=== PATIENT | female | born 1945 | race Caucasian/White ===

== ENCOUNTER 2017-02-05 18:30 | Emergency (ER) | payer MEDICARE, MEDICAID ==
[2017-02-05 19:00] VITALS: BP 102/56
[2017-02-05] MEDS ORDERED: Albuterol 0.083% 2.5 MG/3 ML Neb Soln NEB ONE (19:20)
[2017-02-05 19:30] LABS: CHLORIDE,CL 106 mmol/L (98-115); SODIUM,NA 140 mmol/L (136-145)
[2017-02-05] MEDS ORDERED: predniSONE 20 MG Tab ONE (19:54)
--- NOTE | 2017-02-05 20:09 | EDM.PDOC ---
ED HISTORY OF PRESENT ILLNESS - General Chief Complaint: Respiratory Problem Stated Complaint: PNEUMONIA?? Time Seen by Provider: 02/05/17 18:45 Source of Information: Reports: Patient, RN History Limitations: Reports: No limitations, Other (difficulty hearing) - History of Present Illness INITIAL COMMENTS - FREE TEXT/NARRATIVE: 72-year-old female presents to the ER with the complaints of a cough and the chest discomfort with her cough. She reports the episodes been going on for approximately 3 days. She was seen by an Gianna Brenner PAC yesterday for bronchitis and she was instructed to continue with her cough medication which was the Tessalon, and was started on Zithromax. She denies a shortness of breath or chest pain or radiation to her chest pain. She denies fever chills. She denies nausea vomiting or abdominal pain. Symptom Onset Date: 02/02/17 Timing/Duration: Reports: Day(s): Severity: mild Location, General: Reports: chest Quality: Reports: Ache Improves with: Reports: Medication Worsens with: Reports: None Associated Symptoms (General): Reports: cough. 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(s) (Zithromax, Tessalon cough medication) - Related Data Allergies/ADRs: Allergies Allergy/AdvReac Type Severity Reaction Status Date / Time atorvastatin calcium Allergy unknown Verified 02/05/17 19:37 [From Lipitor] iodine Allergy Rash Verified 02/05/17 19:37 lisinopril Allergy Cough Verified 02/05/17 19:37 strawberry [[place]] Allergy Hives Verified 02/05/17 19:37 fish Allergy Airway Uncoded 02/05/17 19:37 Tightness Home Meds: Home Meds ALPRAZolam [Xanax] 1 tab PO BEDTIME PRN 11/10/13 [History] Diltiazem HCl [Diltiazem 24Hr ER] 1 cap PO DAILY 11/10/13 [History] Escitalopram [Lexapro] 10 mg PO BEDTIME 11/10/13 [History] Esomeprazole [NexIUM] 1 cap PO BID 11/10/13 [History] Ferrous Sulfate 1 tab PO DAILY 11/10/13 [History] Hydrocodone/Acetaminophen [Lortab 10-500] 1 each PO QID PRN 11/10/13 [History] Simvastatin [Zocor] 20 mg PO BEDTIME 11/10/13 [History] Valsartan [Diovan] 80 mg PO DAILY 11/10/13 [History] metFORMIN [Glucophage] 1,000 mg PO BIDM 11/10/13 [History] rOPINIRole [Requip] 2 mg PO BEDTIME 11/10/13 [History] Multivitamin/Iron/Folic Acid [Multi-Day Plus Iron Tablet] 1 tab PO DAILY [History] Vit A/Vit C/Vit E/Zinc/Copper [Preservision] 1 tab PO BID 04/14/15 [History] Cyclobenzaprine [Flexeril] 10 mg PO BEDTIME 12/07/15 [History] Past Medical History HEENT History: Reports: Hard of hearing, Impaired vision Cardiovascular History: Reports: High cholesterol, Hypertension Gastrointestinal History: Reports: Other (see below) Other Gastrointestinal History: She had a gastric bypass surgery done in 1979 and is now having frequent vomiting that is being worked-up. She goes to [place] for further evaluation of this next week. Musculoskeletal History: Reports: Other (see below) Other Musculoskeletal History: bilat shoulder pain - Past Surgical History GI Surgical History: Reports: Bariatric procedure Social & Family History - Tobacco Use Smoking Status *Q: Former Smoker Years of Tobacco use: 20 Packs/Tins Daily: 1 Used Tobacco, but Quit: Yes Month Tobacco Last Used: March Second Hand Smoke Exposure: No - Caffeine Use Caffeine Use: Reports: Coffee - Alcohol Use Days Per Week of Alcohol Use: 0 - Recreational Drug Use Recreational Drug Use: No ED ROS GENERAL - Review of Systems Review Of Systems: ROS reveals no pertinent complaints other than HPI. ED EXAM, GENERAL - Physical Exam Exam: See Below Exam Limited By: No limitations General Appearance: alert, WD/WN, no apparent distress Eye Exam: bilateral eye: EOMI, PERRL Ears: normal external exam, normal canal, normal TMs, hearing loss Nose: normal inspection Throat/Mouth: Normal inspection, Normal oropharynx, Normal voice, No airway compromise Head: atraumatic, normocephalic Neck: normal inspection, supple, non-tender, full range of motion. No: lymphadenopathy (L), lymphadenopathy (R) Respiratory/Chest: no respiratory distress, lungs clear, normal breath sounds. No: crackles, rales, rhonchi Cardiovascular: normal peripheral pulses, regular rate, rhythm, no edema, no JVD , no murmur Peripheral Pulses: 2+: carotid (L), carotid (R) GI/Abdominal: soft, non tender Back Exam: normal inspection Extremities: normal inspection Neurological: alert, oriented Psychiatric: normal affect, normal mood Skin Exam: Warm, Dry, Intact, Normal color, No rash Lymphatic: no adenopathy Course - Vital Signs Last Recorded V/S: Last Vital Signs Temp 98.0 F 02/05/17 19:00 Pulse 78 02/05/17 19:00 Resp 20 02/05/17 19:00 BP 102/56 L 02/05/17 19:00 Pulse Ox 97 02/05/17 19:00 - Orders/Labs/Meds Orders: Active Orders 24 hr Category Date Time Status RT Aerosol Therapy [RC] ASDIRECTED Care 02/05/17 19:21 Ordered CXR [Chest 2V] [CR] Stat Exams 02/05/17 19:01 Ordered Labs: Laboratory Tests 02/05/17 02/05/17 Range/Units 19:01 19:01 WBC 6.6 (5.0-10.0) 10^3/uL RBC 3.75 L (3.80-5.50) 10^6/uL Hgb 9.4 L (12.0-16.0) g/dL Hct 29.4 L (37.0-47.0) % MCV 78.2 L (82.0-92.0) fL MCH 25.1 L (27.0-31.0) pg MCHC 32.1 (32.0-36.0) g/dL RDW 15.9 H (11.5-14.5) % Plt Count 334 H (150-300) 10^3/uL MPV 8.1 (7.4-10.4) fL Neut % (Auto) 71.4 H (50.0-70.0) % Lymph % (Auto) 15.0 L (20.0-40.0) % [place] % (Auto) 7.3 (2.0-8.0) % Eos % (Auto) 5.1 H (1.0-3.0) % Baso % (Auto) 1.2 H (0.0-1.0) % Neut # (Auto) 4.7 (2.5-7.0) 10^3/uL Lymph # (Auto) 1.0 (1.0-4.0) 10^3/uL [place] # (Auto) 0.5 (0.1-0.8) 10^3/uL Eos # (Auto) 0.3 (0.1-0.3) 10^3/uL Baso # (Auto) 0.1 (0.0-0.1) 10^3/uL Sodium 140 (136-145) mmol/L Potassium 5.3 (3.3-5.3) mmol/L Chloride 106 (98-115) mmol/L Carbon Dioxide 22.0 (21.0-32.0) mmol/L BUN 25 (6-25) mg/dL Creatinine 1.02 (0.51-1.17) mg/dL Est Cr Clr Drug Dosing TNP Estimated GFR (MDRD) 53 mL/min Glucose 81 (70-110) mg/dL Calcium 8.3 L (8.7-10.3) mg/dL Total Bilirubin 0.2 (0.2-1.0) mg/dL AST 11 L (15-37) U/L ALT 11 L (12-78) U/L Alkaline Phosphatase 86 (46-116) IU/L Total Protein 6.4 (6.4-8.2) g/dL Albumin 3.37 (3.00-4.80) g/dL Meds: Medications Discontinued Medications Generic Name Dose Route Start Last Admin Trade Name Adrianna PRN Reason Stop Dose Admin Albuterol 2.5 mg 02/05/17 19:20 02/05/17 19:32 Proventil Neb Soln NEB 02/05/17 19:21 2.5 mg ONETIME ONE Administration Prednisone Confirm 02/05/17 19:54 Prednisone Administered 02/05/17 19:55 Dose 40 mg .ROUTE .[facility] - Re-Assessments/Exams Free Text/Narrative Re-Assessment/Exam: 02/05/17 20:10 Patient was given an albuterol neb treatment. She tolerated well. She feels she is breathing better. Her cough has lessened. Departure - Departure Time of Disposition: 20:16 Disposition: Home, Self-Care 01 Condition: good Clinical Impression: Bronchitis Instructions: Acute Bronchitis, [id number] Referrals: Gianna Brenner PA-C [Primary Care Provider] - Forms: ED Department Discharge Additional Instructions: 1. Prednisone 20 mg daily for 5 days. 2. Continue with your cough medicine that was prescribed by her primary care. 3. Finish the year Zithromax that was started yesterday by her primary care. 4. Followup with your primary care next week if her symptoms are not improving despite the prednisone, antibiotic, cough medication. 5. Continue with oral hydration and rest. - My Orders Last 24 Hours: My Active Orders 02/05/17 19:01 CXR [Chest 2V] [CR] Stat 02/05/17 19:21 RT Aerosol Therapy [RC] ASDIRECTED - Assessment/Plan Last 24 Hours: My Active Orders 02/05/17 19:01 CXR [Chest 2V] [CR] Stat 02/05/17 19:21 RT Aerosol Therapy [RC] ASDIRECTED Assessment:: Bronchitis Plan: Patient was seen now 24 hours ago by primary care for bronchitis she was instructed to continue with Tessalon cough medication and was placed on Zithromax. She's afebrile her white blood cell count is normal there is not a significant shift in her differential. Her lungs are clear throughout. She responded to the albuterol treatment. We'll place her on 20 mg of prednisone daily for 5 days. She is to rest continue with her medications as prescribed and drink plenty of fluids over the weekend. She does not feel that she is doing better she will either return to her primary care next week or of her symptoms progressively get worse is instructed to followup in the emergency room. She was discharged home
[2017-02-08] MEDS ORDERED: predniSONE 20 MG Tab PO ONE (09:54)
== END 2017-02-05 20:09 | disposition home or self-care (01) ==
LOC: KA.ED 18:30
DX: J40 Bronchitis, not specified as acute or chronic (principal); E78.00 Pure hypercholesterolemia, unspecified; I10 Essential (primary) hypertension; Z98.84 Bariatric surgery status; Z87.891 Personal history of nicotine dependence; Z79.899 Other long term (current) drug therapy; Z91.013 Allergy to seafood; Z88.8 Allergy status to other drugs, medicaments and biological substances; Z91.018 Allergy to other foods
CPT/HCPCS: 36415; 71020; 80053; 85025; 99283; A9270; J7620

== ENCOUNTER 2017-02-14 11:22 | Emergency (ER) | payer MEDICARE, MEDICAID ==
[2017-02-14] MEDS ORDERED: Albuterol/Ipratropium 3.0-0.5 MG/3 ML Neb Soln NEB ONE (11:37)
[2017-02-14] MEDS ORDERED: predniSONE 20 MG Tab PO ONE (11:37)
[2017-02-14 11:44] VITALS: BP 129/58
--- NOTE | 2017-02-14 11:45 | EDM.PDOC ---
ED HISTORY OF PRESENT ILLNESS - General Chief Complaint: Respiratory Problem Stated Complaint: COLD/COUGH SYMPTOMS Time Seen by Provider: 02/14/17 11:27 Source of Information: Reports: Patient History Limitations: Reports: No limitations - History of Present Illness INITIAL COMMENTS - FREE TEXT/NARRATIVE: PT STATES SHE DEVELOPED URI SYMPTOMS OVER PAST WEEK AND IS BEING TREATED AT [facility]. GIVEN CIPRO SINCE 02/11 AND SYMPTOMS PERSIST. DENIES FEVER, CP, SOB, N/V/D, OTHER FAMILY MEMBERS WITH SAME SYMPTOMS Timing/Duration: Reports: Week(s): Severity: mild Location, General: Reports: chest Improves with: Reports: None Worsens with: Reports: Breathing Associated Symptoms (General): Reports: cough, cough w sputum. Denies: fever/ chills, nausea/vomiting - Related Data Allergies/ADRs: Allergies Allergy/AdvReac Type Severity Reaction Status Date / Time atorvastatin calcium Allergy unknown Verified 02/05/17 19:37 [From Lipitor] iodine Allergy Rash Verified 02/05/17 19:37 lisinopril Allergy Cough Verified 02/05/17 19:37 strawberry [[place]] Allergy Hives Verified 02/05/17 19:37 fish Allergy Airway Uncoded 02/05/17 19:37 Tightness Home Meds: Home Meds ALPRAZolam [Xanax] 1 tab PO BEDTIME PRN 11/10/13 [History] Diltiazem HCl [Diltiazem 24Hr ER] 1 cap PO DAILY 11/10/13 [History] Escitalopram [Lexapro] 10 mg PO BEDTIME 11/10/13 [History] Esomeprazole [NexIUM] 1 cap PO BID 11/10/13 [History] Ferrous Sulfate 1 tab PO DAILY 11/10/13 [History] Hydrocodone/Acetaminophen [Lortab 10-500] 1 each PO QID PRN 11/10/13 [History] Simvastatin [Zocor] 20 mg PO BEDTIME 11/10/13 [History] Valsartan [Diovan] 80 mg PO DAILY 11/10/13 [History] metFORMIN [Glucophage] 1,000 mg PO BIDM 11/10/13 [History] rOPINIRole [Requip] 2 mg PO BEDTIME 11/10/13 [History] Multivitamin/Iron/Folic Acid [Multi-Day Plus Iron Tablet] 1 tab PO DAILY [History] Vit A/Vit C/Vit E/Zinc/Copper [Preservision] 1 tab PO BID 04/14/15 [History] Cyclobenzaprine [Flexeril] 10 mg PO BEDTIME 12/07/15 [History] Azithromycin [Zithromax] 500 mg PO DAILY #4 tablet 02/14/17 [Rx] Prednisone [IJD: predniSONE] 20 mg PO WITHBREAKFAST #3 tab 02/14/17 [Rx] Past Medical History HEENT History: Reports: Hard of hearing, Impaired vision Cardiovascular History: Reports: High cholesterol, Hypertension Gastrointestinal History: Reports: Other (see below) Other Gastrointestinal History: She had a gastric bypass surgery done in 1979 and is now having frequent vomiting that is being worked-up. She goes to [place] for further evaluation of this next week. Musculoskeletal History: Reports: Other (see below) Other Musculoskeletal History: bilat shoulder pain - Past Surgical History GI Surgical History: Reports: Bariatric procedure Social & Family History - Tobacco Use Smoking Status *Q: Former Smoker Years of Tobacco use: 20 Packs/Tins Daily: 1 Used Tobacco, but Quit: Yes Month Tobacco Last Used: March Second Hand Smoke Exposure: No - Caffeine Use Caffeine Use: Reports: Coffee - Alcohol Use Days Per Week of Alcohol Use: 0 - Recreational Drug Use Recreational Drug Use: No ED ROS GENERAL - Review of Systems Review Of Systems: ROS reveals no pertinent complaints other than HPI. Constitutional: Reports: no symptoms HEENT: Reports: No symptoms Respiratory: Reports: Wheezing, Cough, Sputum Cardiovascular: Reports: No symptoms Endocrine: Reports: no symptoms GI/Abdominal: Reports: No symptoms : Reports: no symptoms Musculoskeletal: Reports: no symptoms Skin: Reports: no symptoms Neurological: Reports: No Symptoms Psychiatric: Reports: No symptoms Hematologic/Lymphatic: Reports: no symptoms Immunologic: Reports: no symptoms ED EXAM, GENERAL - Physical Exam Exam: See Below Exam Limited By: No limitations General Appearance: alert, WD/WN, no apparent distress Ears: normal external exam, normal canal, normal TMs Nose: normal inspection, normal mucosa, no blood Throat/Mouth: Normal inspection, Normal oropharynx, No airway compromise Head: atraumatic, normocephalic Neck: normal inspection, supple Respiratory/Chest: no respiratory distress, rhonchi (APICAL), wheezing (EXP) Cardiovascular: regular rate, rhythm, no murmur GI/Abdominal: normal bowel sounds, soft, non tender Extremities: normal inspection, no pedal edema Neurological: alert, oriented, normal cognition Psychiatric: normal affect, normal mood Skin Exam: Warm, Dry, Intact, Normal color, No rash Lymphatic: no adenopathy Course - Orders/Labs/Meds Orders: Active Orders 24 hr Category Date Time Status RT Aerosol Therapy [RC] ASDIRECTED Care 02/14/17 11:38 Ordered Chest 2V [CR] Stat Exams 02/14/17 11:37 Ordered Meds: Medications Discontinued Medications Generic Name Dose Route Start Last Admin Trade Name Freq PRN Reason Stop Dose Admin Albuterol/Ipratropium 3 ml 02/14/17 11:37 Duoneb 3.0-0.5 Mg/3 Ml NEB 02/14/17 11:38 ONETIME ONE Prednisone 20 mg 02/14/17 11:37 Prednisone PO 02/14/17 11:38 ONETIME ONE - Radiology Interpretation Free Text/Narrative:: CXR NEGATIVE FOR ACUTE PROCESS Departure - Departure Time of Disposition: 13:00 Disposition: Home, Self-Care 01 Condition: good Clinical Impression: Bronchitis Instructions: Acute Bronchitis, [id number] Additional Instructions: FOLLOW UP WITH [facility] IN 2 DAYS - My Orders Last 24 Hours: My Active Orders 02/14/17 11:37 Chest 2V [CR] Stat 02/14/17 11:38 RT Aerosol Therapy [RC] ASDIRECTED - Assessment/Plan Last 24 Hours: My Active Orders 02/14/17 11:37 Chest 2V [CR] Stat 02/14/17 11:38 RT Aerosol Therapy [RC] ASDIRECTED Assessment:: BRONCHITIS Plan: ZITRHO / PRED / F-U WITH PCP IN 2 DAYS
[2017-02-14] MEDS ORDERED: Azithromycin 250 MG Tab PO ONE (12:53)
== END 2017-02-14 13:15 | disposition home or self-care (01) ==
LOC: KA.ED 11:22
DX: J40 Bronchitis, not specified as acute or chronic (principal); Z88.8 Allergy status to other drugs, medicaments and biological substances
CPT/HCPCS: 71020; 94640; 99283; A9270; 99284

== ENCOUNTER 2017-04-26 10:43 | Day surgery (SDC) | payer MEDICARE, MEDICAID ==
[~2017-04-26 10:43] MED LIST: EPINEPHrine 1:10,000 1 MG/10 ML Syringe ONE; Midazolam 1 MG/ML 2 ML SDV ONE; Propofol 200 MG/20 ML SDV ONE; Sodium Chloride 0.9% 1,000 ML IV SCH; Sodium Chloride 0.9% 5 ML Syringe FLUSH PRN
[2017-04-26] MEDS ORDERED: Midazolam 1 MG/ML 2 ML SDV IV ONE (11:22)
[2017-04-26] MEDS ORDERED: Propofol 200 MG/20 ML SDV IV ONE (11:22)
--- NOTE | 2017-04-26 11:50 | PCM.OPNOTE ---
- General Post-Op/Procedure Note Date of Surgery/Procedure: 04/26/17 Operative Procedure(s): colonoscopy Findings: Multiple diverticula were seen in the sigmoid colon, otherwise negative colonoscopy Post-Op Diagnosis: Normal colonoscopy Anesthesia Technique: MAC Primary Surgeon: Augustina Young Complications: None Condition: Good Free Text/Narrative:: INFORMED CONSENT: Patient is here today for elective colonoscopy. All aspects of this procedure have been discussed with the patient. All possible complications also, including possibility of perforation, infection, pain, bleeding and unknown complications. In the event of perforation patient may need to have abdominal exploration, colon resection, colostomy and even was discussed. Anesthetic complications were handled by anesthesia department. The patient understands fully well. Patient did not have any further questions for me at the end of my interview. The patient wishes for me to proceed. PREOPERATIVE DIAGNOSIS/INDICATIONS: [left lower quadrant pain alteration of bowel habits] POSTOPERATIVE DIAGNOSIS: [multiple diverticula of the sigmoid colon otherwise negative] INSTRUMENT USED: Olympus videocolonoscope. ASA CLASSIFICATION: [to] ANESTHESIA: Continuous EKG, oximetry and intermittent blood pressure and respiratory monitoring were performed throughout the procedure. IV Versed and Fentanyl were administered. PROCEDURE PERFORMED: Colonoscopy POSITIONS OF PATIENT: Left lateral. RECTUM: Normal. SIGMOID COLON: multiple diverticuli without any complications were seen.. DESCENDING COLON: some diverticula were seen in the descending colon.. SPLENIC FLEXURE: Normal. TRANSVERSE COLON: Normal. HEPATIC FLEXURE: Normal. ASCENDING COLON: Normal. CECUM: Normal. ILEOCECAL VALVE: Normal. BIOPSY: None. TOLERANCE: Excellent. COMPLICATIONS: None.
[2017-04-26 13:23] VITALS: BP 132/73
== END 2017-04-26 13:15 | disposition home or self-care (01) ==
LOC: KA.SDS 10:43
PROVIDERS: ATTEND Family Medicine
DX: K57.30 Diverticulosis of large intestine without perforation or abscess without bleeding (principal); E11.9 Type 2 diabetes mellitus without complications; Z98.84 Bariatric surgery status; Z79.01 Long term (current) use of anticoagulants; E78.2 Mixed hyperlipidemia; I10 Essential (primary) hypertension; Z88.8 Allergy status to other drugs, medicaments and biological substances; Z91.018 Allergy to other foods; Z91.013 Allergy to seafood; Z79.84 Long term (current) use of oral hypoglycemic drugs; Z79.899 Other long term (current) drug therapy; Z90.49 Acquired absence of other specified parts of digestive tract; Z90.710 Acquired absence of both cervix and uterus; Z98.890 Other specified postprocedural states; Z87.891 Personal history of nicotine dependence
CPT/HCPCS: 00810; 45378; 82962; J2250; J2704; J7030

== ENCOUNTER 2017-04-29 04:17 | Emergency (ER) | payer MEDICARE, MEDICAID ==
[2017-04-29] MEDS ORDERED: Sodium Chloride 0.9% 5 ML Syringe FLUSH PRN (04:35)
[2017-04-29] MEDS ORDERED: Nitroglycerin 0.4 MG Tab.SL ONE (04:51)
[2017-04-29] MEDS ORDERED: Albuterol/Ipratropium 3.0-0.5 MG/3 ML Neb Soln NEB ONE (05:06)
--- NOTE | 2017-04-29 05:06 | EDM.PDOC ---
ED HPI GENERAL MEDICAL PROBLEM - General Chief Complaint: General Stated Complaint: sob Time Seen by Provider: 04/29/17 04:58 Source of Information: Reports: Patient, EMS, EMS Notes Reviewed, Family ( ) History Limitations: Reports: No Limitations - History of Present Illness INITIAL COMMENTS - FREE TEXT/NARRATIVE: PT STATES SHE WOKE AT 0100 TODAY TO USE THE BATHROOM. FELT SOB WALKING BACK TO BED AND SYMPTOMS PERSISTED WHILE LYING DOWN. CHEST ALSO FELT HEAVY. CALLED EMS, GIVEN NEB TREATMENT AND WAS TRANSPORTED TO ER. SYMPTOMS IMPROVED AFTER UPDRAFT. DENIES FEVER, N/V/D, LEG EDEMA, DIZZINESS, OR ANDERSEN. Onset: Today Onset Date: 04/29/17 Onset Time: 01:00 Duration: Improving Location: Reports: Chest Severity: Mild Improves with: Reports: Medication (BREATHING TREATMENT) Worsens with: Reports: None Associated Symptoms: Reports: No Other Symptoms - Related Data Allergies Allergy/AdvReac Type Severity Reaction Status Date / Time atorvastatin calcium Allergy Nausea Verified 04/29/17 04:25 [From Lipitor] iodine Allergy Rash Verified 04/29/17 04:25 lisinopril Allergy Cough Verified 04/29/17 04:25 strawberry [[place]] Allergy Hives Verified 04/29/17 04:25 fish Allergy Airway Uncoded 04/26/17 10:57 Tightness Home Meds: Home Meds ALPRAZolam [Xanax] 1 tab PO BEDTIME PRN 11/10/13 [History] Diltiazem HCl [Diltiazem 24Hr ER] 1 cap PO DAILY 11/10/13 [History] Escitalopram [Lexapro] 10 mg PO BEDTIME 11/10/13 [History] Ferrous Sulfate 1 tab PO DAILY 11/10/13 [History] metFORMIN [Glucophage] 1,000 mg PO BIDM 11/10/13 [History] Multivitamin/Iron/Folic Acid [Multi-Day Plus Iron Tablet] 1 tab PO DAILY [History] Albuterol/Ipratropium [DuoNeb 3.0-0.5 MG/3 ML] 3 ml NEB Q6HRRT 04/21/17 [History ] Dextromethorphan/guaiFENesin [Robitussin DM] 5 ml PO Q4H PRN 04/21/17 [History] Esomeprazole [NexIUM] 40 mg PO ACBREAKFAST 04/21/17 [History] Iron Polysaccharide Complex [Ferric X-150] 150 mg PO DAILY 04/21/17 [History] Pramipexole Di-HCl [Pramipexole Dihydrochloride] 0.25 mg PO PCDINNER 04/21/17 [ History] Pramipexole [Mirapex] 0.5 mg PO BEDTIME 04/21/17 [History] Pravastatin [Pravachol] 40 mg PO DAILY 04/21/17 [History] tiZANidine HCl [Tizanidine HCl] 2 mg PO TID PRN 04/21/17 [History] Baclofen [Baclofen] 5 mg PO TID 04/29/17 [History] Past Medical History HEENT History: Reports: Cataract, Hard of Hearing, Impaired Vision Cardiovascular History: Reports: Afib, High Cholesterol, Hypertension, Other ( See Below) Other Cardiovascular History: Varicose veins. Gastrointestinal History: Reports: Other (See Below) Other Gastrointestinal History: Dysphagia. Genitourinary History: Reports: STD Musculoskeletal History: Reports: Other (See Below) Other Musculoskeletal History: Chronic shoulder pain. Rotator cuff tear and repair of both shoulders. Restless leg syndrome. Endocrine/Metabolic History: Reports: Diabetes, Type II Hematologic History: Reports: Anemia, Anticoagulation Therapy, B12 Deficiency, Iron Deficiency - Past Surgical History HEENT Surgical History: Reports: Cataract Surgery GI Surgical History: Reports: Bariatric Procedure, Cholecystectomy, Colonoscopy , EGD Female Surgical History: Reports: Breast Biopsy, Hysterectomy, Other (See Below) Other Female Surgeries/Procedures: Breast lumpectomy. Musculoskeletal Surgical History: Reports: Shoulder Surgery Social & Family History - Tobacco Use Smoking Status *Q: Former Smoker Years of Tobacco use: 20 Packs/Tins Daily: 1 Used Tobacco, but Quit: Yes Month Tobacco Last Used: March Second Hand Smoke Exposure: No - Caffeine Use Caffeine Use: Reports: Coffee - Alcohol Use Days Per Week of Alcohol Use: 0 - Recreational Drug Use Recreational Drug Use: No ED ROS GENERAL - Review of Systems Review Of Systems: ROS reveals no pertinent complaints other than HPI. Constitutional: Reports: No Symptoms HEENT: Reports: No Symptoms Respiratory: Reports: Shortness of Breath, Cough Cardiovascular: Reports: Chest Pain Endocrine: Reports: No Symptoms GI/Abdominal: Reports: No Symptoms : Reports: No Symptoms Musculoskeletal: Reports: No Symptoms Skin: Reports: No Symptoms Neurological: Reports: No Symptoms Psychiatric: Reports: No Symptoms Hematologic/Lymphatic: Reports: No Symptoms Immunologic: Reports: No Symptoms ED EXAM, GENERAL - Physical Exam Exam: See Below Exam Limited By: No Limitations General Appearance: Alert, WD/WN, No Apparent Distress Eye Exam: Bilateral Eye: Normal Inspection Nose: Normal Inspection, Normal Mucosa, No Blood Throat/Mouth: Normal Inspection, Normal Oropharynx, Normal Voice, No Airway Compromise Head: Atraumatic, Normocephalic Neck: Normal Inspection, Supple, Non-Tender Respiratory/Chest: No Respiratory Distress, Lungs Clear, Normal Breath Sounds, No Accessory Muscle Use Cardiovascular: Regular Rate, Rhythm, No Murmur GI/Abdominal: Normal Bowel Sounds, Soft, Non-Tender Back Exam: Normal Inspection. No: CVA Tenderness (L), CVA Tenderness (R) Extremities: Normal Inspection, Normal Range of Motion, Non-Tender, No Pedal Edema Neurological: Alert, Oriented, No Motor/Sensory Deficits Psychiatric: Normal Affect, Normal Mood Skin Exam: Warm, Dry, Intact, Normal Color, No Rash Lymphatic: No Adenopathy EKG INTERPRETATION EKG Date: 04/29/17 Time: 04:30 Rhythm: NSR Rate (Beats/Min): 79 [place]: Normal P-Wave: Present QRS: Normal ST-T: Normal QT: Normal Comparison: No Change Course - Vital Signs Last Recorded V/S: Last Vital Signs Temp 98 F 04/29/17 04:47 Pulse 80 04/29/17 04:48 Resp 20 04/29/17 04:48 BP 142/51 H 04/29/17 04:48 Pulse Ox 97 04/29/17 04:48 - Orders/Labs/Meds Orders: Active Orders 24 hr Category Date Time Status EKG Documentation Completion [RC] ASDIRECTED Care 04/29/17 04:35 Active Chest 2V [CR] Stat Exams 04/29/17 04:34 Ordered CBC WITH AUTO DIFF [HEME] Stat Lab 04/29/17 04:58 Ordered CMP [COMPREHENSIVE METABOLIC PN,CMP] [CHEM] Stat Lab 04/29/17 04:34 Ordered TROPONIN I [CHEM] Stat Lab 04/29/17 04:34 Ordered Sodium Chloride 0.9% [Syrex Flush] Med 04/29/17 04:35 Active 5 ml FLUSH Q8HR PRN Saline Lock Insert [OM.PC] Routine Oth 04/29/17 04:35 Ordered EKG 12 Lead [EK] Routine Ther 04/29/17 04:35 Ordered Medication Orders Sodium Chloride (Syrex Flush) 5 ml FLUSH Q8HR PRN PRN Reason: Keep Vein Open Meds: Medications Generic Name Dose Route Start Last Admin Trade Name Freq PRN Reason Stop Dose Admin Sodium Chloride 5 ml 04/29/17 04:35 Syrex Flush FLUSH Q8HR PRN Keep Vein Open Discontinued Medications Generic Name Dose Route Start Last Admin Trade Name Freq PRN Reason Stop Dose Admin Nitroglycerin Confirm 04/29/17 04:51 Nitrostat Administered 04/29/17 04:52 Dose 0.4 mg .ROUTE .[facility] ONE - Radiology Interpretation Free Text/Narrative:: CXR NEGATIVE FOR ACUTE PROCESS - Re-Assessments/Exams Free Text/Narrative Re-Assessment/Exam: 04/29/17 05:43 PT AFEBRILE, NONTOXIC APPEARING, VSS. NO CP OR SOB WHILE IN ER. AT BEDSIDE. SUGGESTED OBS ADMIT BUT PT AND WANTED TO GO HOME. WILL F/U AT [facility] TOMORROW Departure - Departure Time of Disposition: 05:44 Disposition: Home, Self-Care 01 Condition: Good Clinical Impression: SOB (shortness of breath) - Discharge Information Instructions: Shortness of Breath, [id number], Metered Dose Inhaler (No Spacer Used) Forms: ED Department Discharge Additional Instructions: FOLLOW UP AT [facility] TOMORROW. RETURN TO ER SOONER IF SYMPTOMS CONTINUE - My Orders Last 24 Hours: My Active Orders 04/29/17 04:34 Chest 2V [CR] Stat CMP [COMPREHENSIVE METABOLIC PN,CMP] [CHEM] Stat TROPONIN I [CHEM] Stat 04/29/17 04:35 EKG Documentation Completion [RC] ASDIRECTED Sodium Chloride 0.9% [Syrex Flush] 5 ml FLUSH Q8HR PRN Saline Lock Insert [OM.PC] Routine EKG 12 Lead [EK] Routine 04/29/17 04:58 CBC WITH AUTO DIFF [HEME] Stat - Assessment/Plan Last 24 Hours: My Active Orders 04/29/17 04:34 Chest 2V [CR] Stat CMP [COMPREHENSIVE METABOLIC PN,CMP] [CHEM] Stat TROPONIN I [CHEM] Stat 04/29/17 04:35 EKG Documentation Completion [RC] ASDIRECTED Sodium Chloride 0.9% [Syrex Flush] 5 ml FLUSH Q8HR PRN Saline Lock Insert [OM.PC] Routine EKG 12 Lead [EK] Routine 04/29/17 04:58 CBC WITH AUTO DIFF [HEME] Stat Assessment:: SOB Plan: F/U AT CLINIC TOMORROW
[2017-04-29] MEDS ORDERED: Albuterol 8 GM Inhaler INH ONE (05:46)
[2017-04-29] MEDS ORDERED: Albuterol HFA 18 Gm Inhaler ONE (05:46)
[2017-04-29 12:44] VITALS: BP 125/48
== END 2017-04-29 06:12 | disposition home or self-care (01) ==
LOC: KA.ED 04:17
DX: R06.02 Shortness of breath (principal); I10 Essential (primary) hypertension; I48.91 Unspecified atrial fibrillation; E78.00 Pure hypercholesterolemia, unspecified; E11.9 Type 2 diabetes mellitus without complications; D50.9 Iron deficiency anemia, unspecified; Z98.49 Cataract extraction status, unspecified eye; Z90.49 Acquired absence of other specified parts of digestive tract; Z98.84 Bariatric surgery status; Z90.710 Acquired absence of both cervix and uterus; Z98.890 Other specified postprocedural states; Z87.891 Personal history of nicotine dependence; Z79.84 Long term (current) use of oral hypoglycemic drugs; Z79.899 Other long term (current) drug therapy; Z91.013 Allergy to seafood; Z88.8 Allergy status to other drugs, medicaments and biological substances; Z91.018 Allergy to other foods
CPT/HCPCS: 71020; 80053; 84484; 85025; 93005; 94640; 99285; A9270; 99284

== ENCOUNTER 2017-05-02 08:13 | Emergency (ER) | payer MEDICARE, MEDICAID ==
--- NOTE | 2017-05-02 08:52 | EDM.PDOC ---
ED HPI GENERAL MEDICAL PROBLEM - General Chief Complaint: General Stated Complaint: FEVER--HAVING TREMORS Time Seen by Provider: 05/02/17 08:30 Source of Information: Reports: Patient, EMS, EMS Notes Reviewed History Limitations: Reports: No Limitations - History of Present Illness INITIAL COMMENTS - FREE TEXT/NARRATIVE: PT STATES SHE WOKE THIS AM AT 0600 AND WHILE MAKING COFFEE DEVELOPED SHAKING IN HER RIGHT HAND AND DROPPED CUP. SHAKING OF RUE PERSISTED. ALSO FELT WEAK IN KNEES BUT THAT WAS SAID TO BE OF CHRONIC NATURE. PT SEEN HERE 3 DAYS AGO FOR SOB BUT NOT C/O THAT TODAY. DENIES CP, N/V/D, ANDERSEN, BLURRY VISION, FACIAL NUMBNESS , OR DIFFICULTY SPEAKING. Onset: Today Onset Date: 05/02/17 Onset Time: 06:00 Duration: Hour(s): Location: Reports: Upper Extremity, Right Severity: Mild Improves with: Reports: None Worsens with: Reports: None Associated Symptoms: Reports: No Other Symptoms. Denies: Confusion, Chest Pain , Fever/Chills, Headaches, Nausea/Vomiting, Shortness of Breath, Syncope - Related Data Allergies Allergy/AdvReac Type Severity Reaction Status Date / Time atorvastatin calcium Allergy Nausea Verified 05/02/17 08:33 [From Lipitor] iodine Allergy Rash Verified 05/02/17 08:33 lisinopril Allergy Cough Verified 05/02/17 08:33 strawberry [[employer]] Allergy Hives Verified 05/02/17 08:33 fish Allergy Airway Uncoded 04/26/17 10:57 Tightness Home Meds: Home Meds ALPRAZolam [Xanax] 1 tab PO BEDTIME PRN 11/10/13 [History] Diltiazem HCl [Diltiazem 24Hr ER] 360 mg PO DAILY 11/10/13 [History] Escitalopram [Lexapro] 10 mg PO BEDTIME 11/10/13 [History] metFORMIN [Glucophage] 1,000 mg PO BIDM 11/10/13 [History] Multivitamin/Iron/Folic Acid [Multi-Day Plus Iron Tablet] 1 tab PO DAILY [History] Esomeprazole [NexIUM] 40 mg PO BID 04/21/17 [History] Iron Polysaccharide Complex [Ferric X-150] 150 mg PO DAILY 04/21/17 [History] Pramipexole Di-HCl [Pramipexole Dihydrochloride] 0.25 mg PO PCDINNER 04/21/17 [ History] Pravastatin [Pravachol] 40 mg PO DAILY 04/21/17 [History] tiZANidine HCl [Tizanidine HCl] 2 mg PO TID PRN 04/21/17 [History] Baclofen [Baclofen] 5 mg PO TID 04/29/17 [History] Past Medical History HEENT History: Reports: Cataract, Hard of Hearing, Impaired Vision Cardiovascular History: Reports: Afib, High Cholesterol, Hypertension, Other ( See Below) Other Cardiovascular History: Varicose veins. Respiratory History: Reports: Other (See Below) Other Respiratory History: recent bronchitis Gastrointestinal History: Reports: Other (See Below) Other Gastrointestinal History: Dysphagia. Genitourinary History: Reports: STD Musculoskeletal History: Reports: Other (See Below) Other Musculoskeletal History: Chronic shoulder pain. Rotator cuff tear and repair of both shoulders. Restless leg syndrome. Psychiatric History: Reports: Depression Endocrine/Metabolic History: Reports: Diabetes, Type II Hematologic History: Reports: Anemia, Anticoagulation Therapy, B12 Deficiency, Iron Deficiency - Infectious Disease History Infectious Disease History: Reports: Chicken Pox, Measles, Mumps, Pertussis ( Whooping Cough) - Past Surgical History HEENT Surgical History: Reports: Cataract Surgery GI Surgical History: Reports: Bariatric Procedure, Cholecystectomy, Colonoscopy , EGD Female Surgical History: Reports: Breast Biopsy, Hysterectomy, Other (See Below) Other Female Surgeries/Procedures: Breast lumpectomy. Musculoskeletal Surgical History: Reports: Shoulder Surgery Social & Family History - Tobacco Use Smoking Status *Q: Former Smoker Years of Tobacco use: 20 Packs/Tins Daily: 1 Used Tobacco, but Quit: Yes Month Tobacco Last Used: March Second Hand Smoke Exposure: No - Caffeine Use Caffeine Use: Reports: Coffee - Alcohol Use Days Per Week of Alcohol Use: 0 - Recreational Drug Use Recreational Drug Use: No ED ROS GENERAL - Review of Systems Review Of Systems: ROS reveals no pertinent complaints other than HPI. Constitutional: Reports: No Symptoms HEENT: Reports: No Symptoms Respiratory: Reports: No Symptoms Cardiovascular: Reports: No Symptoms Endocrine: Reports: No Symptoms GI/Abdominal: Reports: No Symptoms : Reports: No Symptoms Musculoskeletal: Reports: Arm Pain (RIGHT) Skin: Reports: No Symptoms Neurological: Reports: Tremors (RUE). Denies: Change in Speech Psychiatric: Reports: No Symptoms Hematologic/Lymphatic: Reports: No Symptoms Immunologic: Reports: No Symptoms ED EXAM, GENERAL - Physical Exam Exam: See Below Exam Limited By: No Limitations General Appearance: Alert, WD/WN, No Apparent Distress Eye Exam: Bilateral Eye: Normal Inspection Nose: Normal Inspection, Normal Mucosa, No Blood Throat/Mouth: Normal Inspection, Normal Oropharynx, Normal Voice, No Airway Compromise Head: Atraumatic, Normocephalic Neck: Normal Inspection, Supple, Non-Tender, Full Range of Motion Respiratory/Chest: No Respiratory Distress, Lungs Clear, Normal Breath Sounds, No Accessory Muscle Use, Chest Non-Tender Cardiovascular: Normal Peripheral Pulses, Regular Rate, Rhythm, No Murmur GI/Abdominal: Normal Bowel Sounds, Soft, Non-Tender, No Organomegaly, No Distention, No Abnormal Bruit, No Mass Back Exam: Normal Inspection. No: CVA Tenderness (L), CVA Tenderness (R) Extremities: Normal Inspection, Normal Range of Motion, Non-Tender, No Pedal Edema, Normal Capillary Refill Neurological: Alert, Oriented, CN II-XII Intact, Normal Cognition, No Motor/ Sensory Deficits Psychiatric: Normal Affect, Normal Mood Skin Exam: Warm, Dry, Intact, Normal Color, No Rash Lymphatic: No Adenopathy Course - Vital Signs Last Recorded V/S: Last Vital Signs Temp 98.4 F 05/02/17 08:24 Pulse 87 05/02/17 08:24 Resp 18 05/02/17 08:24 BP 146/68 H 05/02/17 08:24 Pulse Ox 94 L 05/02/17 08:24 - Orders/Labs/Meds Orders: Active Orders 24 hr Category Date Time Status Chest 2V [CR] Stat Exams 05/02/17 08:38 Ordered CBC WITH AUTO DIFF [HEME] Stat Lab 05/02/17 08:38 Ordered COMPREHENSIVE METABOLIC PN,CMP [CHEM] Stat Lab 05/02/17 08:38 Ordered UA W/MICROSCOPIC [URIN] Stat Lab 05/02/17 08:38 Uncollected - Re-Assessments/Exams Free Text/Narrative Re-Assessment/Exam: 05/02/17 09:52 PT AFEBRILE, NONTOXIC APPEARING, VSS, AT BEDSIDE. WILL HAVE HER F/U AT [facility] 05/02/17 09:53 Departure - Departure Time of Disposition: 10:04 Disposition: Home, Self-Care 01 Condition: Good Clinical Impression: Psychogenic tremor - Discharge Information Instructions: Tremor Forms: ED Department Discharge Additional Instructions: FOLLOW UP AT [facility] IN NEXT 1-2 DAYS. RETURN TO ER SOONER IF SYMPTOMS PERSIST - My Orders Last 24 Hours: My Active Orders 05/02/17 08:38 Chest 2V [CR] Stat CBC WITH AUTO DIFF [HEME] Stat COMPREHENSIVE METABOLIC PN,CMP [CHEM] Stat UA W/MICROSCOPIC [URIN] Stat - Assessment/Plan Last 24 Hours: My Active Orders 05/02/17 08:38 Chest 2V [CR] Stat CBC WITH AUTO DIFF [HEME] Stat COMPREHENSIVE METABOLIC PN,CMP [CHEM] Stat UA W/MICROSCOPIC [URIN] Stat Assessment:: PSYCHOGENIC TREMOR Plan: F/U AT [facility]
[2017-05-02 08:57] LABS: CHLORIDE,CL 110 mmol/L (98-115); SODIUM,NA 143 mmol/L (136-145)
[2017-05-02 09:08] VITALS: BP 134/67
== END 2017-05-02 10:15 | disposition home or self-care (01) ==
LOC: KA.ED 08:13
DX: F44.4 Conversion disorder with motor symptom or deficit (principal); H54.7 Unspecified visual loss; E78.00 Pure hypercholesterolemia, unspecified; I10 Essential (primary) hypertension; I48.91 Unspecified atrial fibrillation; F32.9 Major depressive disorder, single episode, unspecified; E11.9 Type 2 diabetes mellitus without complications; Z90.49 Acquired absence of other specified parts of digestive tract; Z90.710 Acquired absence of both cervix and uterus; Z88.8 Allergy status to other drugs, medicaments and biological substances; Z91.018 Allergy to other foods; Z79.899 Other long term (current) drug therapy; Z87.891 Personal history of nicotine dependence
CPT/HCPCS: 36415; 70450; 71020; 80053; 81001; 85025; 99282; 99284

== ENCOUNTER 2017-06-13 02:25 | Emergency (ER) | payer MEDICARE, MEDICAID ==
[2017-06-13 02:37] VITALS: BP 115/50
[2017-06-13] MEDS ORDERED: traMADol 50 MG Tab PO ONE ×2 (03:54→04:13)
--- NOTE | 2017-06-13 04:02 | EDM.PDOC ---
ED HPI GENERAL MEDICAL PROBLEM - General Chief Complaint: General Stated Complaint: FELL Time Seen by Provider: 06/13/17 03:30 Source of Information: Reports: Patient History Limitations: Reports: No Limitations - History of Present Illness INITIAL COMMENTS - FREE TEXT/NARRATIVE: 72-year-old female brought in by EMS early this morning for evaluation of left hip pain, bilateral knee pain after she fell out of her bed this morning while attempting to eat up to go to the bathroom at approximately 1 AM. Patient reports that she was getting out of her bed and fell onto her knees and then on her left hip and was unable to get up on her own independently. Her had called the emergency service and she was seen on the floor at the bedside. She was assisted back up to a standing position and she was walked over to the cart where she was assisted onto the cart and brought in for evaluation. She complains mainly of pain over the left lateral hip. No numbness or tingling. No shortness of breath. No syncopal episode. No loss of consciousness. No chest pain. 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 He has been in failing health and has been due the [facility] at times but ultimately she has brought him back home. She appears somewhat failing in her health since last time I've seen her and is somewhat unkempt in hygiene. Onset: Today Onset Date: 06/13/17 Onset Time: 13:00 Location: Reports: Lower Extremity, Left (left hip) Quality: Reports: Ache Severity: Mild Improves with: Reports: Rest Worsens with: Reports: Movement Context: Reports: Trauma (fell out of bed) Associated Symptoms: Reports: No Other Symptoms Bilateral Knee Pain Score (Numeric/FACES): 7 - Related Data Allergies Allergy/AdvReac Type Severity Reaction Status Date / Time atorvastatin calcium Allergy Nausea Verified 06/13/17 02:30 [From Lipitor] iodine Allergy Rash Verified 06/13/17 02:30 lisinopril Allergy Cough Verified 06/13/17 02:30 strawberry [[employer]] Allergy Hives Verified 06/13/17 02:30 fish Allergy Airway Uncoded 06/13/17 02:30 Tightness Home Meds: Home Meds ALPRAZolam [Xanax] 0.25 mg PO BEDTIME PRN 11/10/13 [History] Diltiazem HCl [Diltiazem 24Hr ER] 360 mg PO DAILY 11/10/13 [History] Escitalopram [Lexapro] 10 mg PO BEDTIME 11/10/13 [History] metFORMIN [Glucophage] 1,000 mg PO BIDM 11/10/13 [History] Multivitamin/Iron/Folic Acid [Multi-Day Plus Iron Tablet] 1 tab PO BID 04/14/15 [History] Esomeprazole [NexIUM] 40 mg PO BID 04/21/17 [History] Iron Polysaccharide Complex [Ferric X-150] 150 mg PO DAILY 04/21/17 [History] Pramipexole Di-HCl [Pramipexole Dihydrochloride] 0.5 mg PO BEDTIME 04/21/17 [ History] Pravastatin [Pravachol] 40 mg PO DAILY 04/21/17 [History] tiZANidine HCl [Tizanidine HCl] 2 mg PO TID PRN 04/21/17 [History] Baclofen [Baclofen] 10 mg PO TID PRN 04/29/17 [History] Past Medical History HEENT History: Reports: Cataract, Hard of Hearing, Impaired Vision Cardiovascular History: Reports: Afib, High Cholesterol, Hypertension, Other ( See Below) Other Cardiovascular History: Varicose veins. Respiratory History: Reports: Other (See Below) Other Respiratory History: recent bronchitis Gastrointestinal History: Reports: Other (See Below) Other Gastrointestinal History: Dysphagia. Genitourinary History: Reports: STD LAP CUTTER History: Reports: None Musculoskeletal History: Reports: Other (See Below) Other Musculoskeletal History: Chronic shoulder pain. Rotator cuff tear and repair of both shoulders. Restless leg syndrome. Psychiatric History: Reports: Depression Endocrine/Metabolic History: Reports: Diabetes, Type II Hematologic History: Reports: Anemia, Anticoagulation Therapy, B12 Deficiency, Iron Deficiency Oncologic (Cancer) History: Reports: None - Infectious Disease History Infectious Disease History: Reports: Chicken Pox, Measles, Mumps, Pertussis ( Whooping Cough) - Past Surgical History Head Surgeries/Procedures: Reports: None HEENT Surgical History: Reports: Cataract Surgery Respiratory Surgical History: Reports: None GI Surgical History: Reports: Bariatric Procedure, Cholecystectomy, Colonoscopy , EGD Female Surgical History: Reports: Breast Biopsy, Hysterectomy, Other (See Below) Other Female Surgeries/Procedures: Breast lumpectomy. Musculoskeletal Surgical History: Reports: Shoulder Surgery Oncologic Surgical History: Reports: Lumpectomy Social & Family History - Family History Family Medical History: Noncontributory - Tobacco Use Smoking Status *Q: Former Smoker Years of Tobacco use: 20 Packs/Tins Daily: 1 Used Tobacco, but Quit: Yes Month Tobacco Last Used: March Second Hand Smoke Exposure: No - Caffeine Use Caffeine Use: Reports: Coffee - Alcohol Use Days Per Week of Alcohol Use: 0 - Recreational Drug Use Recreational Drug Use: No ED ROS GENERAL - Review of Systems Review Of Systems: ROS reveals no pertinent complaints other than HPI. ED EXAM, GENERAL - Physical Exam Exam: See Below Exam Limited By: No Limitations General Appearance: Alert, WD/WN, No Apparent Distress, Other (unkempt) Head: Atraumatic, Normocephalic Neck: Normal Inspection, Supple Respiratory/Chest: No Respiratory Distress, Lungs Clear, Normal Breath Sounds Cardiovascular: Regular Rate, Rhythm, No Edema GI/Abdominal: Soft, Non-Tender Back Exam: Normal Inspection Extremities: Normal Inspection, Normal Range of Motion, Non-Tender, No Pedal Edema, Normal Capillary Refill, Other (bilateral hip exam does not demonstrate pain into her groin. Patient was placed through passive range of motion with flexion internal and external rotation of both her hips. She has mild tenderness to palpation over the left lateral hip greater trochanter region. Bilateral knees were examined with no increased pain discomfort with gentle range of motion of 0-120. No significant crepitation is noted bilaterally no swelling or warmth. No effusion.) Neurological: Alert, Oriented, Normal Cognition, No Motor/Sensory Deficits Psychiatric: Normal Affect, Normal Mood Skin Exam: Warm, Dry, Intact, Normal Color Course - Vital Signs Last Recorded V/S: Last Vital Signs Temp 98.3 F 06/13/17 02:33 Pulse 72 06/13/17 02:33 Resp 11 L 06/13/17 02:33 BP 115/50 L 06/13/17 02:33 Pulse Ox 92 L 06/13/17 02:33 - Orders/Labs/Meds Orders: Active Orders 24 hr Category Date Time Status Hip Min 2V w Pelvis Bi [CR] Stat Exams 06/13/17 02:53 Taken Knee 1V or 2V Bi [CR] Stat Exams 06/13/17 02:53 Ordered traMADol [Ultram] Med 06/13/17 03:54 Once 50 mg PO ONETIME ONE - Radiology Interpretation Free Text/Narrative:: X-rays AP pelvis and lateral hips bilaterally Impression: -Negative bilateral hip x-rays, no fracture Bilateral AP standing and lateral knee x-rays Impression: -Negative for fracture bilateral knees Departure - Departure Time of Disposition: 04:09 Disposition: Home, Self-Care 01 Condition: Good Clinical Impression: Left hip pain Fall Qualifiers: Encounter type: initial encounter Qualified Code(s): W19.XXXA - Unspecified fall, initial encounter - Discharge Information Forms: ED Department Discharge - My Orders Last 24 Hours: My Active Orders 06/13/17 02:53 Hip Min 2V w Pelvis Bi [CR] Stat Knee 1V or 2V Bi [CR] Stat 06/13/17 03:54 traMADol [Ultram] 50 mg PO ONETIME ONE - Assessment/Plan Last 24 Hours: My Active Orders 06/13/17 02:53 Hip Min 2V w Pelvis Bi [CR] Stat Knee 1V or 2V Bi [CR] Stat 06/13/17 03:54 traMADol [Ultram] 50 mg PO ONETIME ONE Assessment:: Fall Left hip pain Plan: I reviewed the x-rays with Maryuri. Radiographs of the hips and knees are negative for fracture. Patient will be discharged back to home.
== END 2017-06-13 08:05 | disposition home or self-care (01) ==
LOC: KA.ED 02:25
DX: M25.552 Pain in left hip (principal); I48.91 Unspecified atrial fibrillation; E78.00 Pure hypercholesterolemia, unspecified; I10 Essential (primary) hypertension; F32.9 Major depressive disorder, single episode, unspecified; E11.9 Type 2 diabetes mellitus without complications; D50.9 Iron deficiency anemia, unspecified; Z88.8 Allergy status to other drugs, medicaments and biological substances; Z91.013 Allergy to seafood; Z91.018 Allergy to other foods; Z79.84 Long term (current) use of oral hypoglycemic drugs; Z79.899 Other long term (current) drug therapy; Z90.49 Acquired absence of other specified parts of digestive tract; Z90.710 Acquired absence of both cervix and uterus; Z87.891 Personal history of nicotine dependence; W06.XXXA Fall from bed, initial encounter; Y92.003 Bedroom of unspecified non-institutional (private) residence as the place of occurrence of the external cause
CPT/HCPCS: 73521; 73560; 99283; A9270

== ENCOUNTER 2017-07-19 07:29 | Day surgery (SDC) | payer MEDICARE, MEDICAID ==
[~2017-07-19 07:29] MED LIST changes: -Midazolam 1 MG/ML 2 ML SDV ONE; -Sodium Chloride 0.9% 1,000 ML IV SCH; -Sodium Chloride 0.9% 5 ML Syringe FLUSH PRN
[2017-07-19] MEDS ORDERED: Propofol 200 MG/20 ML SDV ONE (07:40)
[2017-07-19] MEDS ORDERED: Sodium Chloride 0.9% 5 ML Syringe FLUSH PRN (08:00)
[2017-07-19] MEDS ORDERED: Sodium Chloride 0.9% 1,000 ML IV SCH (08:00)
[2017-07-19] MEDS ORDERED: Propofol 200 MG/20 ML SDV IV ONE (08:24)
[2017-07-19 10:37] VITALS: BP 130/66
--- NOTE | 2017-07-19 10:44 | PCM.OPNOTE ---
- General Post-Op/Procedure Note Date of Surgery/Procedure: 07/19/17 Operative Procedure(s): Colonoscopy Findings: multiple diverticuli were seen without any evidence of colon polyps, obstruction , angiodysplasia, AV malformation or malignancy. Anesthesia Technique: MAC Primary Surgeon: Augustina Young Complications: None Condition: Good Free Text/Narrative:: INFORMED CONSENT: Patient is here today for elective colonoscopy. All aspects of this procedure have been discussed with the patient. All possible complications also, including possibility of perforation, infection, pain, bleeding and unknown complications. In the event of perforation patient may need to have abdominal exploration, colon resection, colostomy and even was discussed. Anesthetic complications were handled by anesthesia department. The patient understands fully well. Patient did not have any further questions for me at the end of my interview. The patient wishes for me to proceed. PREOPERATIVE DIAGNOSIS/INDICATIONS: [anemia hemoglobin of 8.5] POSTOPERATIVE DIAGNOSIS: [same, multiple diverticulosis without evidence of bleeding. No evidence of obstruction or malignancy. No AV malformation or angiodysplasia. No polyps.] INSTRUMENT USED: Olympus videocolonoscope. ASA CLASSIFICATION: [2] ANESTHESIA: Continuous EKG, oximetry and intermittent blood pressure and respiratory monitoring were performed throughout the procedure. IV Versed and Fentanyl were administered. PROCEDURE PERFORMED: Colonoscopy POSITIONS OF PATIENT: Left lateral. RECTUM: Normal. SIGMOID COLON: multiple diverticuli were seen. No bleeding was noted. Diverticuli were small. DESCENDING COLON: Normal. SPLENIC FLEXURE: Normal. TRANSVERSE COLON: Normal. HEPATIC FLEXURE: Normal. ASCENDING COLON: Normal. CECUM: Normal. ILEOCECAL VALVE: Normal. BIOPSY: None. TOLERANCE: Excellent. COMPLICATIONS: None.
== END 2017-07-19 11:40 | disposition home or self-care (01) ==
LOC: KA.SDS 07:29
PROVIDERS: ATTEND Family Medicine
DX: K57.30 Diverticulosis of large intestine without perforation or abscess without bleeding (principal); D64.9 Anemia, unspecified; E11.9 Type 2 diabetes mellitus without complications; I48.2 Chronic atrial fibrillation; I10 Essential (primary) hypertension; E78.2 Mixed hyperlipidemia; G89.4 Chronic pain syndrome; G25.81 Restless legs syndrome; Z79.84 Long term (current) use of oral hypoglycemic drugs; Z79.01 Long term (current) use of anticoagulants; Z79.899 Other long term (current) drug therapy; Z88.8 Allergy status to other drugs, medicaments and biological substances; Z91.013 Allergy to seafood; Z91.018 Allergy to other foods; Z91.048 Other nonmedicinal substance allergy status; Z98.84 Bariatric surgery status
CPT/HCPCS: 45378; 74176; 82962; J2704; J7030; 00810

== ENCOUNTER 2017-07-28 07:51 | Day surgery (SDC) | payer MEDICARE, MEDICAID ==
[2017-07-28] MEDS ORDERED: Sodium Chloride 0.9% 5 ML Syringe FLUSH PRN (08:00)
[2017-07-28] MEDS ORDERED: Sodium Chloride 0.9% 1,000 ML IV SCH (08:00)
[2017-07-28] MEDS ORDERED: Propofol 200 MG/20 ML SDV ONE (08:15)
[2017-07-28] MEDS ORDERED: EPINEPHrine 1:10,000 1 MG/10 ML Syringe ONE (09:21)
[2017-07-28] MEDS ORDERED: Propofol 200 MG/20 ML SDV IV ONE (10:29)
--- NOTE | 2017-07-28 10:52 | PCM.OPNOTE ---
- General Post-Op/Procedure Note Date of Surgery/Procedure: 07/28/17 Operative Procedure(s): Upper GI endoscopy. Anesthesia Technique: MAC Primary Surgeon: Augustina Young Complications: None Condition: Good Free Text/Narrative:: Dictated.
[2017-07-28 16:08] VITALS: BP 144/70
--- NOTE | 2017-07-29 08:12 | OR ---
DATE OF SURGERY: 07/28/2017 SURGEON: Augustina Young MD PATIENT PROFILE: A 72-year-old patient from [facility]. PREOPERATIVE DIAGNOSIS: Patient with persistent epigastric pain, persistent anemia, status post gastric bypass surgery in the past. Rule out gastric ulceration, rule out gastric outlet obstruction. PROCEDURE PROPOSED: Upper gastrointestinal endoscopy and possible biopsies. OPERATION PERFORMED: Upper gastrointestinal endoscopy. PROCEDURE IN DETAILS: Informed consent was obtained from the patient regarding this procedure. All possible complications were thoroughly discussed. The patient was taken to the operating room and given a satisfactory monitored anesthesia care. Continuous EKG, oximetry monitoring, and intermittent blood pressure and respiratory monitoring were performed throughout the procedure. An Olympus video gastroscope was introduced at the mouth and advanced up to the esophagus and into the stomach. The pharynx and the esophageal mucosa were very completely normal. Gastroesophageal junction was at 25 cm. The scope was passed through the stomach. The stomach pouch was small. The patient previously has had a Asia-en-Y gastroplasty. Both afferent and efferent limbs were normal. There was no evidence of ulceration or obstruction. Retroflexion was performed and the cardiac portion of stomach was normal. Scope was withdrawn after aspirating the air. No biopsies were necessary. The patient tolerated the procedure well. Follow up in the clinic. The patient recovered rapidly recovered and transferred to her room in satisfactory condition. 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 /[id number]/MODL
== END 2017-07-28 12:10 | disposition home or self-care (01) ==
LOC: KA.SDS 07:51
PROVIDERS: ATTEND Family Medicine
DX: R10.13 Epigastric pain (principal); D64.9 Anemia, unspecified; E78.2 Mixed hyperlipidemia; I10 Essential (primary) hypertension; E11.9 Type 2 diabetes mellitus without complications; I48.2 Chronic atrial fibrillation; Z98.84 Bariatric surgery status; Z88.8 Allergy status to other drugs, medicaments and biological substances; Z91.018 Allergy to other foods; Z91.013 Allergy to seafood; Z79.84 Long term (current) use of oral hypoglycemic drugs; Z79.899 Other long term (current) drug therapy
CPT/HCPCS: 43235; 82962; J2704; J7030; 00740

== ENCOUNTER 2017-08-14 04:09 | Emergency (ER) | payer MEDICARE, MEDICAID ==
[2017-08-14 04:35] VITALS: BP 137/61
--- NOTE | 2017-08-14 05:21 | EDM.PDOC ---
ED HPI GENERAL MEDICAL PROBLEM - General Chief Complaint: Respiratory Problem Stated Complaint: Shortness of Breath Time Seen by Provider: 08/14/17 04:53 Source of Information: Reports: Patient History Limitations: Reports: No Limitations - History of Present Illness INITIAL COMMENTS - FREE TEXT/NARRATIVE: Patient presents with a "moan" when she exhales. She noticed this at 0200 this morning. She says she has had a slight cough for a few days, basically since she had an upper endoscopy which left her throat a little irritated. She denies any heart problems or pain except that she occasionally goes in and out of [facility] chronically. She had been on warfarin for years but that has been discontinued by her PCP. She denies any weakness, balance problems or vision changes. - Related Data Allergies Allergy/AdvReac Type Severity Reaction Status Date / Time atorvastatin calcium Allergy Nausea Verified 08/14/17 04:29 [From Lipitor] iodine Allergy Rash Verified 08/14/17 04:29 lisinopril Allergy Cough Verified 08/14/17 04:29 strawberry [[place]] Allergy Hives Verified 08/14/17 04:29 fish Allergy Airway Uncoded 07/21/17 14:44 Tightness Home Meds: Home Meds ALPRAZolam [Xanax] 0.25 mg PO DAILY PRN 11/10/13 [History] Diltiazem HCl [Diltiazem 24Hr ER] 360 mg PO DAILY 11/10/13 [History] Escitalopram [Lexapro] 20 mg PO DAILY 11/10/13 [History] metFORMIN [Glucophage] 1,000 mg PO BIDM 11/10/13 [History] Multivitamin/Iron/Folic Acid [Multi-Day Plus Iron Tablet] 1 tab PO DAILY [History] Esomeprazole [NexIUM] 40 mg PO BID 04/21/17 [History] Iron Polysaccharide Complex [Ferric X-150] 150 mg PO DAILY 04/21/17 [History] Pramipexole Di-HCl [Pramipexole Dihydrochloride] 0.5 mg PO BEDTIME 04/21/17 [ History] Pravastatin [Pravachol] 40 mg PO DAILY 04/21/17 [History] Baclofen [Baclofen] 10 mg PO TID PRN 04/29/17 [History] Past Medical History HEENT History: Reports: Cataract, Hard of Hearing, Impaired Vision Cardiovascular History: Reports: Afib, High Cholesterol, Hypertension, Other ( See Below) Other Cardiovascular History: Varicose veins. Respiratory History: Reports: Other (See Below) Other Respiratory History: recent bronchitis Gastrointestinal History: Reports: Other (See Below) Other Gastrointestinal History: Dysphagia. Genitourinary History: Reports: STD UPPER TIER History: Reports: None Musculoskeletal History: Reports: Other (See Below) Other Musculoskeletal History: Chronic shoulder pain. Rotator cuff tear and repair of both shoulders. Restless leg syndrome. Psychiatric History: Reports: Anxiety, Depression Endocrine/Metabolic History: Reports: Diabetes, Type II Hematologic History: Reports: Anemia, Anticoagulation Therapy, B12 Deficiency, Iron Deficiency Oncologic (Cancer) History: Reports: None - Infectious Disease History Infectious Disease History: Reports: Chicken Pox, Measles, Mumps, Pertussis ( Whooping Cough) - Past Surgical History Head Surgeries/Procedures: Reports: None HEENT Surgical History: Reports: Cataract Surgery Respiratory Surgical History: Reports: None GI Surgical History: Reports: Bariatric Procedure, Cholecystectomy, Colonoscopy , EGD Female Surgical History: Reports: Breast Biopsy, Hysterectomy, Other (See Below) Other Female Surgeries/Procedures: Breast lumpectomy. Musculoskeletal Surgical History: Reports: Shoulder Surgery Oncologic Surgical History: Reports: Lumpectomy Social & Family History - Family History Family Medical History: Noncontributory - Tobacco Use Smoking Status *Q: Former Smoker Years of Tobacco use: 20 Packs/Tins Daily: 1 Used Tobacco, but Quit: Yes Month Tobacco Last Used: March Second Hand Smoke Exposure: No - Caffeine Use Caffeine Use: Reports: Coffee, Soda - Alcohol Use Days Per Week of Alcohol Use: 0 - Recreational Drug Use Recreational Drug Use: No ED ROS GENERAL - Review of Systems Review Of Systems: See Below Constitutional: Denies: Fever, Malaise, Weakness, Diaphoresis HEENT: Reports: Throat Pain. Denies: Ear Pain, Vision Change Respiratory: Reports: Cough (slight). Denies: Shortness of Breath, Wheezing Cardiovascular: Denies: Chest Pain, Lightheadedness, Syncope GI/Abdominal: Denies: Abdominal Pain, Vomiting Musculoskeletal: Reports: No Symptoms Skin: Denies: Cyanosis, Jaundice, Mottled, Pallor, Diaphoresis Neurological: Denies: Confusion, Dizziness, Headache, Seizure, Syncope Psychiatric: Denies: Agitation, Anxiety, Confusion ED EXAM, GENERAL - Physical Exam Exam: See Below Exam Limited By: No Limitations General Appearance: Alert, WD/WN, No Apparent Distress Eye Exam: Bilateral Eye: EOMI, Normal Inspection, PERRL Ears: Normal Canal, Normal TMs, Other (Outer rim of left ear has a small laceration and bruise with scab in place and no sign of infection; patient says this happened from falling by her bed and hitting it on her night stand a few days ago.) Nose: Normal Inspection, Normal Mucosa, No Blood. No: Nasal Tenderness, Nasal Deformity, Nasal Swelling, Nasal Drainage, Nasal Flaring Throat/Mouth: Normal Inspection, Normal Lips, Normal Oropharynx, Normal Voice, No Airway Compromise, Other (When pt is talking to me and distracted by my exam and questioning, she doesn't have the "moan" which is definitely a vocalization coming from the larynx and not from the lower airway or lungs. On demand she can prevent it while I ausculated her lungs and asked her to breathe quietly for a bit. No pathology of any kind is evident on exam.) Head: Atraumatic, Normocephalic Neck: Normal Inspection, Supple, Non-Tender, Full Range of Motion. No: Lymphadenopathy (L), Lymphadenopathy (R) Respiratory/Chest: No Respiratory Distress, Lungs Clear, Normal Breath Sounds, No Accessory Muscle Use. No: Crackles, Rales, Rhonchi, Wheezing, Stridor, Pleural Rub, Splinting, Prolonged Expiration Cardiovascular: Regular Rate, Rhythm (during my exam HR is very regular; while watching her rhythm on the monitor I see P-waves most of the time with frequent early QRS intermittently.) GI/Abdominal: Soft, Non-Tender, No Distention Back Exam: Normal Inspection, Full Range of Motion. 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 The "moan" has disappeared completely for the past 20 minutes. She says her throat only hurts when she coughs and she hasn't coughed at all in last 30 minutes. Discussed findings and plan with patient. I feel this is a compensatory reaction to the tickle/irritation in her throat that is sometimes voluntary vs involuntary in nature. Now completely resolved and never returned through discharge. Stable at discharge. Departure - Departure Time of Disposition: 05:15 Disposition: Home, Self-Care 01 Condition: Good Clinical Impression: Tickle in throat - Discharge Information Additional Instructions: 1. Drink 8 cups of water daily. 2. Follow up with your PCP in two days if the throat discomfort persists.
== END 2017-08-15 05:30 | disposition home or self-care (01) ==
LOC: KA.ED 04:09
DX: R09.89 Other specified symptoms and signs involving the circulatory and respiratory systems (principal); I48.91 Unspecified atrial fibrillation; E11.9 Type 2 diabetes mellitus without complications; I10 Essential (primary) hypertension; E78.00 Pure hypercholesterolemia, unspecified; Z79.84 Long term (current) use of oral hypoglycemic drugs; Z79.01 Long term (current) use of anticoagulants; Z98.49 Cataract extraction status, unspecified eye; Z90.49 Acquired absence of other specified parts of digestive tract; Z87.891 Personal history of nicotine dependence; Z90.710 Acquired absence of both cervix and uterus; Z98.890 Other specified postprocedural states; Z79.899 Other long term (current) drug therapy; Z91.09 Other allergy status, other than to drugs and biological substances; Z91.013 Allergy to seafood; Z91.018 Allergy to other foods; Z88.8 Allergy status to other drugs, medicaments and biological substances
CPT/HCPCS: 93005; 99282; 99284

== ENCOUNTER 2017-09-06 07:30 | Observation (INO) | payer MEDICARE, MEDICAID ==
--- NOTE | 2017-09-06 08:15 | EDM.PDOC ---
ED HPI GENERAL MEDICAL PROBLEM - General Chief Complaint: Abdominal Pain Stated Complaint: ABD PAIN Time Seen by Provider: 09/06/17 08:02 Source of Information: Reports: Patient, EMS, EMS Notes Reviewed History Limitations: Reports: No Limitations - History of Present Illness INITIAL COMMENTS - FREE TEXT/NARRATIVE: PT STATES SHE UNDERWENT ABD SURGERY ON AUG 24, 2017 FOR PANCREAS CYST AND SPLEEN. UNSURE OF PATHOLOGY. BEGAN HAVING ABD PAIN 2 DAYS AGO, LOST APPETITE AND HAS NOT HAD BOWEL MOVEMENT. DENIES FEVER, N/V/D, FALL, CP, OR SOB. Onset: Gradual Onset Date: 09/04/17 Duration: Day(s): Location: Reports: Abdomen Quality: Reports: Ache Severity: Mild Improves with: Reports: None Worsens with: Reports: None Associated Symptoms: Reports: Loss of Appetite. Denies: Chest Pain, Nausea/ Vomiting, Shortness of Breath Abdomen Pain Score (Numeric/FACES): 9 - Related Data Allergies Allergy/AdvReac Type Severity Reaction Status Date / Time atorvastatin calcium Allergy Severe Nausea Verified 09/06/17 07:50 [From Lipitor] iodine Allergy Rash Verified 09/06/17 07:50 lisinopril Allergy Cough Verified 09/06/17 07:50 strawberry [[place]] Allergy Hives Verified 09/06/17 07:50 fish Allergy Severe Airway Uncoded 08/16/17 10:08 Tightness Home Meds: Home Meds Diltiazem HCl [Diltiazem 24Hr ER] 360 mg PO DAILY 11/10/13 [History] Escitalopram [Lexapro] 20 mg PO DAILY 11/10/13 [History] metFORMIN [Glucophage] 1,000 mg PO BIDM 11/10/13 [History] Multivitamin/Iron/Folic Acid [Multi-Day Plus Iron Tablet] 1 tab PO DAILY [History] Esomeprazole [NexIUM] 40 mg PO BID 04/21/17 [History] Iron Polysaccharide Complex [Ferric X-150] 150 mg PO DAILY 04/21/17 [History] Pramipexole Di-HCl [Pramipexole Dihydrochloride] 0.5 mg PO BEDTIME 04/21/17 [ History] Pravastatin [Pravachol] 40 mg PO DAILY 04/21/17 [History] Baclofen [Baclofen] 10 mg PO TID PRN 04/29/17 [History] ALPRAZolam [Alprazolam] 0.25 mg PO BID 09/06/17 [History] Warfarin [Coumadin] 2 mg PO DAILY 09/06/17 [History] oxyCODONE HCl/Acetaminophen [oxyCODONE-Acetaminophen 5-325] 1 tab PO Q4H PRN [History] Past Medical History HEENT History: Reports: Cataract, Hard of Hearing, Impaired Vision Cardiovascular History: Reports: Afib, High Cholesterol, Hypertension, Other ( See Below) Other Cardiovascular History: Varicose veins. Respiratory History: Reports: Other (See Below) Other Respiratory History: recent bronchitis Gastrointestinal History: Reports: Other (See Below) Other Gastrointestinal History: Dysphagia. 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 Rotator cuff tear and repair of both shoulders. Restless leg syndrome. Psychiatric History: Reports: Anxiety, Depression Endocrine/Metabolic History: Reports: Diabetes, Type II Hematologic History: Reports: Anemia, Anticoagulation Therapy, B12 Deficiency, Iron Deficiency Oncologic (Cancer) History: Reports: None - Infectious Disease History Infectious Disease History: Reports: Chicken Pox, Measles, Mumps, Pertussis ( Whooping Cough) - Past Surgical History Head Surgeries/Procedures: Reports: None HEENT Surgical History: Reports: Cataract Surgery Respiratory Surgical History: Reports: None GI Surgical History: Reports: Bariatric Procedure, Cholecystectomy, Colonoscopy , EGD Female Surgical History: Reports: Breast Biopsy, Hysterectomy, Other (See Below) Other Female Surgeries/Procedures: Breast lumpectomy. Musculoskeletal Surgical History: Reports: Shoulder Surgery Oncologic Surgical History: Reports: Lumpectomy Social & Family History - Family History Family Medical History: Noncontributory - Tobacco Use Smoking Status *Q: Former Smoker Years of Tobacco use: 20 Packs/Tins Daily: 1 Used Tobacco, but Quit: Yes Month Tobacco Last Used: March Second Hand Smoke Exposure: No - Caffeine Use Caffeine Use: Reports: Coffee, Soda - Alcohol Use Days Per Week of Alcohol Use: 0 - Recreational Drug Use Recreational Drug Use: No ED ROS GENERAL - Review of Systems Review Of Systems: ROS reveals no pertinent complaints other than HPI. Constitutional: Reports: Decreased Appetite HEENT: Reports: No Symptoms Respiratory: Reports: No Symptoms Cardiovascular: Reports: No Symptoms Endocrine: Reports: No Symptoms GI/Abdominal: Reports: Abdominal Pain, Decreased Appetite. Denies: Constipation , Diarrhea, Nausea, Vomiting : Reports: Dysuria Musculoskeletal: Reports: No Symptoms Skin: Reports: No Symptoms Neurological: Reports: No Symptoms Psychiatric: Reports: No Symptoms Hematologic/Lymphatic: Reports: No Symptoms Immunologic: Reports: No Symptoms ED EXAM, GI/ABD - Physical Exam Exam: See Below Exam Limited By: No Limitations General Appearance: Alert, WD/WN, No Apparent Distress Throat/Mouth: Normal Inspection, Normal Oropharynx, No Airway Compromise Head: Atraumatic, Normocephalic Neck: Normal Inspection, Supple Respiratory/Chest: No Respiratory Distress, Lungs Clear, Normal Breath Sounds, No Accessory Muscle Use, Chest Non-Tender Cardiovascular: Regular Rate, Rhythm, No Murmur GI/Abdominal Exam: Soft, No Organomegaly, No Distention, No Abnormal Bruit, No Mass, Tender (MINIMAL SUPRAPUBIC), Other (HYPOACTIVE BS IN ALL 4 QUADS). No: Guarding, Rigid, Rebound Back Exam: Normal Inspection. No: CVA Tenderness (L), CVA Tenderness (R) Extremities: Normal Inspection, No Pedal Edema Neurological: Alert, Oriented, Normal Cognition Psychiatric: Normal Affect, Normal Mood Skin Exam: Warm, Dry, Intact, Normal Color, No Rash Lymphatic: No Adenopathy Course - Vital Signs Last Recorded V/S: Last Vital Signs Temp 97.1 F 09/06/17 07:35 Pulse 71 09/06/17 09:40 Resp 11 L 09/06/17 09:40 BP 126/43 L 09/06/17 09:40 Pulse Ox 94 L 09/06/17 09:40 - Orders/Labs/Meds Orders: Active Orders 24 hr Category Date Time Status Abdomen Pelvis w Cont [CT] Stat Exams 09/06/17 08:02 Taken Sodium Chloride 0.9% [Normal Saline] 500 ml Med 09/06/17 09:00 Active IV .BOLUS Medication Orders Sodium Chloride (Normal Saline) 500 mls @ 500 mls/hr IV .BOLUS SHEY Last Admin: 09/06/17 09:23 Dose: 500 mls/hr Labs: Laboratory Tests 09/06/17 09/06/17 09/06/17 Range/Units 07:50 07:50 07:50 WBC 9.2 (5.0-10.0) 10^3/uL RBC 3.05 L (3.80-5.50) 10^6/uL Hgb 7.7 L (12.0-16.0) g/dL Hct 25.2 L (37.0-47.0) % MCV 82.5 (82.0-92.0) fL MCH 25.2 L (27.0-31.0) pg MCHC 30.5 L (32.0-36.0) g/dL RDW 18.4 H (11.5-14.5) % Plt Count 685 H (150-300) 10^3/uL MPV 7.5 (7.4-10.4) fL Neut % (Auto) 84.0 H (50.0-70.0) % Lymph % (Auto) 5.0 L (20.0-40.0) % [place] % (Auto) 9.3 H (2.0-8.0) % Eos % (Auto) 1.0 (1.0-3.0) % Baso % (Auto) 0.7 (0.0-1.0) % Neut # (Auto) 7.6 H (2.5-7.0) 10^3/uL Lymph # (Auto) 0.5 L (1.0-4.0) 10^3/uL [place] # (Auto) 0.9 H (0.1-0.8) 10^3/uL Eos # (Auto) 0.1 (0.1-0.3) 10^3/uL Baso # (Auto) 0.1 (0.0-0.1) 10^3/uL PT 43.9 H (8.9-11.4) SEC INR 4.5 H* (0.9-1.1) APTT 52.3 H* (20.8-31.2) SEC Sodium 141 (136-145) mmol/L Potassium 4.6 (3.3-5.3) mmol/L Chloride 109 (98-115) mmol/L Carbon Dioxide 21.9 (21.0-32.0) mmol/L BUN 18 (6-25) mg/dL Creatinine 0.94 (0.51-1.17) mg/dL Est Cr Clr Drug Dosing 49.15 mL/min Estimated GFR (MDRD) 58 mL/min Glucose 160 H (70-110) mg/dL Calcium 7.1 L (8.7-10.3) mg/dL Total Bilirubin 0.4 (0.2-1.0) mg/dL AST 13 L (15-37) U/L ALT 14 (12-78) U/L Alkaline Phosphatase 76 (46-116) IU/L Total Protein 5.7 L (6.4-8.2) g/dL Albumin 2.39 L (3.00-4.80) g/dL Amylase 26 (25-125) U/L Lipase 41 L (73-393) U/L Specimen Type Urine Color (YELLOW) Urine Appearance (CLEAR) Urine pH (5.0-9.0) Ur Specific [place] (1.005-1.030) Urine Protein (NEGATIVE) mg/dL Urine Glucose (UA) (NEGATIVE) mg/dL Urine Ketones (NEGATIVE) mg/dL Urine Occult Blood (NEGATIVE) Urine Nitrite (NEGATIVE) Urine Bilirubin (NEGATIVE) Urine Urobilinogen (0.2-1.0) E.U./dL Ur Leukocyte Esterase (NEGATIVE) Urine RBC /HPF Urine WBC /HPF Ur Epithelial Cells /LPF Urine Bacteria (NONE TO FEW) /HPF 09/06/17 Range/Units 09:00 WBC (5.0-10.0) 10^3/uL RBC (3.80-5.50) 10^6/uL Hgb (12.0-16.0) g/dL Hct (37.0-47.0) % MCV (82.0-92.0) fL MCH (27.0-31.0) pg MCHC (32.0-36.0) g/dL RDW (11.5-14.5) % Plt Count (150-300) 10^3/uL MPV (7.4-10.4) fL Neut % (Auto) (50.0-70.0) % Lymph % (Auto) (20.0-40.0) % [place] % (Auto) (2.0-8.0) % Eos % (Auto) (1.0-3.0) % Baso % (Auto) (0.0-1.0) % Neut # (Auto) (2.5-7.0) 10^3/uL Lymph # (Auto) (1.0-4.0) 10^3/uL [place] # (Auto) (0.1-0.8) 10^3/uL Eos # (Auto) (0.1-0.3) 10^3/uL Baso # (Auto) (0.0-0.1) 10^3/uL PT (8.9-11.4) SEC INR (0.9-1.1) APTT (20.8-31.2) SEC Sodium (136-145) mmol/L Potassium (3.3-5.3) mmol/L Chloride (98-115) mmol/L Carbon Dioxide (21.0-32.0) mmol/L BUN (6-25) mg/dL Creatinine (0.51-1.17) mg/dL Est Cr Clr Drug Dosing mL/min Estimated GFR (MDRD) mL/min Glucose (70-110) mg/dL Calcium (8.7-10.3) mg/dL Total Bilirubin (0.2-1.0) mg/dL AST (15-37) U/L ALT (12-78) U/L Alkaline Phosphatase (46-116) IU/L Total Protein (6.4-8.2) g/dL Albumin (3.00-4.80) g/dL Amylase (25-125) U/L Lipase (73-393) U/L Specimen Type Urinvoid Urine Color Light yellow (YELLOW) Urine Appearance Cloudy H (CLEAR) Urine pH 6.5 (5.0-9.0) Ur Specific [place] 1.010 (1.005-1.030) Urine Protein 30 H (NEGATIVE) mg/dL Urine Glucose (UA) Negative (NEGATIVE) mg/dL Urine Ketones 15 H (NEGATIVE) mg/dL Urine Occult Blood Small H (NEGATIVE) Urine Nitrite Positive H (NEGATIVE) Urine Bilirubin Negative (NEGATIVE) Urine Urobilinogen 1.0 (0.2-1.0) E.U./dL Ur Leukocyte Esterase Moderate H (NEGATIVE) Urine RBC 0-5 /HPF Urine WBC >100 H /HPF Ur Epithelial Cells Rare /LPF Urine Bacteria Many H (NONE TO FEW) /HPF Meds: Medications Generic Name Dose Route Start Last Admin Trade Name Freq PRN Reason Stop Dose Admin Sodium Chloride 500 mls @ 500 mls/hr 09/06/17 09:00 09/06/17 09:23 Normal Saline IV 500 mls/hr .BOLUS SHEY Administration Discontinued Medications Generic Name Dose Route Start Last Admin Trade Name Adrianna PRN Reason Stop Dose Admin Iopamidol 100 ml 09/06/17 09:03 09/06/17 09:06 Isovue-300 (61%) IVPUSH 09/06/17 09:04 80 ml ONETIME ONE Administration Sodium Chloride 50 ml 09/06/17 09:04 09/06/17 09:06 Normal Saline FLUSH 09/06/17 09:05 50 ml ONETIME ONE Administration - Radiology Interpretation Free Text/Narrative:: CT ABD/PELVIS SHOWS NO ACUTE PROCESS BUT LLE FEMORAL DVT - Re-Assessments/Exams Free Text/Narrative Re-Assessment/Exam: 09/06/17 08:42 Patient afebrile, nontoxic appearing, vital signs stable. pain controlled. discussed case with dr Maguire. will admit obs and follow 09/06/17 10:13 Departure - Departure Time of Disposition: 10:20 Disposition: Refer to Observation Condition: Fair Clinical Impression: Abdominal pain Qualifiers: Abdominal location: generalized Qualified Code(s): R10.84 - Generalized abdominal pain UTI (urinary tract infection) Qualifiers: Urinary tract infection type: acute cystitis Hematuria presence: without hematuria Qualified Code(s): N30.00 - Acute cystitis without hematuria Dvt femoral (deep venous thrombosis) Qualifiers: Chronicity: unspecified Laterality: left Qualified Code(s): I82.412 - Acute embolism and thrombosis of left femoral vein - Discharge Information Referrals: Augustina Young MD [Primary Care Provider] - Forms: ED Department Discharge - My Orders Last 24 Hours: My Active Orders 09/06/17 08:02 Abdomen Pelvis w Cont [CT] Stat 09/06/17 09:00 Sodium Chloride 0.9% [Normal Saline] 500 ml IV .BOLUS - Assessment/Plan Last 24 Hours: My Active Orders 09/06/17 08:02 Abdomen Pelvis w Cont [CT] Stat 09/06/17 09:00 Sodium Chloride 0.9% [Normal Saline] 500 ml IV .BOLUS Assessment:: ABD PAIN / LLE DVT Plan: ADMIT TO OBS FOR DR MAGUIRE
[2017-09-06] MEDS ORDERED: Sodium Chloride 0.9% 500 ML IV SCH (09:00)
[2017-09-06] MEDS ORDERED: Iopamidol 612 MG/ML 100 ML Bottle IVPUSH ONE (09:03)
[2017-09-06] MEDS ORDERED: Sodium Chloride 0.9% 50 ML SDV FLUSH ONE (09:04)
[2017-09-06] MEDS ORDERED: cefTRIAXone 1 GM Vial IVPUSH ONE (10:16)
[2017-09-06] MEDS ORDERED: Acetaminophen/oxyCODONE 325-5 MG Tab PO PRN (11:42)
[2017-09-06] MEDS ORDERED: ALPRAZolam 0.25 MG Tab PO PRN (11:42)
[2017-09-06] MEDS ORDERED: Baclofen 10 MG Tab PO PRN (11:42)
[2017-09-06] MEDS: Docusate Sodium 100 MG Cap PO SCH ×2 (13:32→21:10)
[2017-09-06] MEDS: Escitalopram 10 MG Tab PO SCH (13:33)
[2017-09-06] MEDS: Omeprazole 20 MG Cap.CR PO SCH ×2 (13:33→17:42)
[2017-09-06] MEDS: Iron Polysaccharides Complex 150 MG Cap PO SCH (13:33)
[2017-09-06] MEDS: Multivitamins with Minerals/Iron/Folic Acid/Lycopene Tab PO SCH (13:33)
[2017-09-06] MEDS: Simvastatin 20 MG Tab PO SCH (13:34)
[2017-09-06] MEDS: Diltiazem 180 MG Cap.CD PO SCH (13:34)
--- NOTE | 2017-09-06 18:10 | PCM.HP ---
H&P History of Present Illness - General Date of Service: 09/06/17 Admit Problem/Dx: Abdominal pain, anemia Source of Information: Patient, Old Records, Provider (Mark Smith PA-C (ED provider)) History Limitations: Reports: No Limitations - History of Present Illness Initial Comments - Free Text/Narative: Ms. 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 She was in the ICU for 6 days prior to transfer to the floor for the remaining 4 days of the hospitalization. Notable changes to her home medication regimen were initiation of warfarin for chronic atrial fibrillation and decrease of metformin to 500mg BID in addition to being provided with an rx for Percocet 5/ 325 #10 to be used for severe breakthrough pain. Of note, she was given post- splenectomy vaccines prior to discharge, with plan for next vaccines at 8 weeks post-op. She was discharged with home health, planned 2-3 times per week with first visit planned today. She arrived home on 09/03/17 and reports that she has been having increasing abdominal pain since. Due to what she described as 10/10 severity pain, EMS was called and transported her to [facility] ED for further evaluation and was given morphine 2mg en route. Upon arrival, Mark Smith PA-C, ED provider evaluated her and work-up performed was notable for Hgb 7.7, INR 4.5, UA consistent with UTI, and CT abdomen/pelvis without abdominal abnormality but incidentally noting a LLE DVT and a lower extremity ultrasound was ordered. Due to her abdominal pain and anemia, she was accepted for observation admission. Upon my evaluation of her in the ED about 2 hours after her initial arrival, she reports improved abdominal pain. She currently reports lower abdominal pain without radiation. Denies alleviating or aggravating factors. She reports no BM since being in the hospital and has used all her Percocet, but has not been taking any stool regimen medications. Her appetite has been poor since surgery. She has otherwise been taking her home medications as prescribed and hasn't noted any other symptoms; see ROS for details. Abdomen Pain Score (Numeric/FACES): 2 - Related Data Allergies/Adverse Reactions: Allergies Allergy/AdvReac Type Severity Reaction Status Date / Time atorvastatin calcium Allergy Severe Nausea Verified 09/06/17 07:50 [From Lipitor] iodine Allergy Rash Verified 09/06/17 07:50 lisinopril Allergy Cough Verified 09/06/17 07:50 strawberry [[place]] Allergy Hives Verified 09/06/17 07:50 fish Allergy Severe Airway Uncoded 09/06/17 14:06 Tightness Home Medications: Home Meds Diltiazem HCl [Diltiazem 24Hr ER] 360 mg PO DAILY 11/10/13 [History] Escitalopram [Lexapro] 20 mg PO DAILY 11/10/13 [History] metFORMIN [Glucophage] 1,000 mg PO BIDM 11/10/13 [History] Multivitamin/Iron/Folic Acid [Multi-Day Plus Iron Tablet] 1 tab PO DAILY [History] Esomeprazole [NexIUM] 40 mg PO BID 04/21/17 [History] Iron Polysaccharide Complex [Ferric X-150] 150 mg PO DAILY 04/21/17 [History] Pramipexole Di-HCl [Pramipexole Dihydrochloride] 0.5 mg PO BEDTIME 04/21/17 [ History] Pravastatin [Pravachol] 40 mg PO DAILY 04/21/17 [History] Baclofen [Baclofen] 10 mg PO TID PRN 04/29/17 [History] ALPRAZolam [Alprazolam] 0.25 mg PO BID 09/06/17 [History] Warfarin [Coumadin] 2 mg PO DAILY 09/06/17 [History] oxyCODONE HCl/Acetaminophen [oxyCODONE-Acetaminophen 5-325] 1 tab PO Q4H PRN [History] Past Medical History HEENT History: Reports: Cataract, Hard of Hearing, Impaired Vision Cardiovascular History: Reports: Afib, High Cholesterol, Hypertension, Other ( See Below) Other Cardiovascular History: Varicose veins. Respiratory History: Reports: Other (See Below) Other Respiratory History: bronchitis Gastrointestinal History: Reports: Other (See Below) Other Gastrointestinal History: Dysphagia. Genitourinary History: Reports: [employer] History: Reports: None Musculoskeletal History: Reports: Other (See Below) Other Musculoskeletal History: Chronic shoulder pain. Rotator cuff tear and repair of both shoulders. Restless leg syndrome. Psychiatric History: Reports: Anxiety, Depression Endocrine/Metabolic History: Reports: Diabetes, Type II Hematologic History: Reports: Anemia, Anticoagulation Therapy, B12 Deficiency, Iron Deficiency Oncologic (Cancer) History: Reports: None - Infectious Disease History Infectious Disease History: Reports: Chicken Pox, Measles, Mumps, Pertussis ( Whooping Cough) - Past Surgical History Head Surgeries/Procedures: Reports: None HEENT Surgical History: Reports: Cataract Surgery Respiratory Surgical History: Reports: None GI Surgical History: Reports: Bariatric Procedure, Cholecystectomy, Colonoscopy , EGD Other GI Surgeries/Procedures: Part of pancreas removed and spleenectomy. Female Surgical History: Reports: Breast Biopsy, Hysterectomy, Other (See Below) Other Female Surgeries/Procedures: Breast lumpectomy. Musculoskeletal Surgical History: Reports: Shoulder Surgery Oncologic Surgical History: Reports: Lumpectomy Social & Family History - Family History Family Medical History: Noncontributory - Tobacco Use Smoking Status *Q: Former Smoker Years of Tobacco use: 5 Packs/Tins Daily: 1 Used Tobacco, but Quit: Yes Month Tobacco Last Used: 360 Second Hand Smoke Exposure: Yes - Caffeine Use Caffeine Use: Reports: Coffee, Soda - Alcohol Use Days Per Week of Alcohol Use: 0 - Recreational Drug Use Recreational Drug Use: No H&P Review of Systems - Review of Systems: Review Of Systems: See Below General: Reports: Malaise, Decreased Appetite. Denies: Fever, Chills HEENT: Denies: Headaches, Sore Throat, Visual Changes Pulmonary: Denies: Shortness of Breath, Wheezing, Cough Cardiovascular: Denies: Chest Pain, Palpitations, Edema Gastrointestinal: Reports: Abdominal Pain, Anorexia, Constipation, Decreased Appetite, Flatus. Denies: Black Stool, Bloody Stool, Diarrhea, Difficulty Swallowing, Distension, Hematemesis, Hematochezia, Melena, Nausea, Vomiting Genitourinary: Reports: Dysuria. Denies: Frequency, Burning Musculoskeletal: Denies: Neck Pain, Back Pain, Leg Pain Skin: Reports: Wound (abdomen incision without concerns). Denies: Pruritis, Rash Psychiatric: Denies: Confusion, Depression, Anxiety Neurological: Denies: Confusion, Headache, Numbness, Syncope Exam - Exam Exam: See Below - Vital Signs Vital Signs: Last Vital Signs Temp 36.6 C 09/06/17 14:38 Pulse 82 09/06/17 14:38 Resp 16 09/06/17 14:38 BP 148/78 H 09/06/17 14:38 Pulse Ox 96 09/06/17 14:38 Weight: 73.482 kg - Exam Physical Exam Comments:: GENERAL: Elderly white female lying in ED bed resting comfortably in no acute distress. HEENT: Normocephalic, atraumatic. Conjunctiva clear, pupils equal round and reactive to light. Nares patent without discharge. Mucous membranes moist, posterior pharynx unremarkable. NECK: Supple, no masses. CV: Irregularly irregular, normal rate, no murmurs, rubs, or gallops. 2+ radial , PT, and DP pulses. PULMONARY: Normal effort, clear to auscultation bilaterally, no wheezes, rales, or rhonchi. ABDOMEN: Healing midline incision with SteriStrips in place, hypoactive bowel sounds, soft, mild tenderness to palpation in the suprapubic region, no guarding /rigidity/rebound. EXTREMITIES: No edema, cyanosis, or clubbing. MUSCULOSKELETAL: Moves all extremities well. NEUROLOGICAL: No obvious deficits. DERMATOLOGIC: No rashes or suspicious lesions in exposed areas. PSYCHIATRIC: Alert, interactive, appropriate affect. - Patient Data Lab Results Last 24 hrs: Laboratory Results - last 24 hr 09/06/17 09/06/17 Range/Units 12:08 17:44 POC Glucose 183 H 155 H (74-106) mg/dl Result Diagrams: 09/06/17 07:50 09/06/17 07:50 *Q Meaningful Use (ADM) - VTE *Q VTE Criteria *Q: - Stroke *Q Stroke Criteria *Q: - AMI *Q AMI Criteria *Q: Problem List Initiated/Reviewed/Updated: Yes Orders Last 24hrs: Active Orders 24 hr Category Date Time Status Blood Glucose Check, Bedside [RC] WITHMEALSANDBED Care 09/06/17 11:51 Active CPAP Adult [RT BiPAP/CPAP] [RC] ASDIRECTED Care 09/06/17 11:49 Inactive Intake and Output [RC] 1400,2200,0600 Care 09/06/17 11:49 Active Up With Assistance [RC] ASDIRECTED Care 09/06/17 11:48 Active Vital Signs [RC] 0700,1500,2300 Care 09/06/17 11:48 Active Heart Healthy Diet [DIET] Diet 09/06/17 Dinner Active BASIC METABOLIC PANEL,BMP [CHEM] AM Lab 09/07/17 05:11 Ordered CBC WITH AUTO DIFF [HEME] AM Lab 09/07/17 05:11 Ordered CULTURE WOUND [RM] Routine Lab 09/06/17 14:07 Ordered INR,PT,PROTHROMBIN TIME [COAG] AM Lab 09/07/17 05:11 Ordered OCCULT BLOOD SCREEN [OP] Routine Lab 09/06/17 11:52 Uncollected ALPRAZolam [Xanax] Med 09/06/17 11:42 Active 0.25 mg PO BID PRN Acetaminophen/oxyCODONE [Percocet 325-5 MG] Med 09/06/17 11:42 Active 1 tab PO Q4H PRN Baclofen [Lioresal] Med 09/06/17 11:42 Active 10 mg PO TID PRN Diltiazem [Cardizem CD] Med 09/06/17 12:45 Active 360 mg PO DAILY Docusate Sodium [Colace] Med 09/06/17 12:45 Active 200 mg PO BID Escitalopram [Lexapro] Med 09/06/17 12:45 Active 20 mg PO DAILY FA/Lycopene/Lut/MV,Ca,Iron,Min [Centrum] Med 09/06/17 12:45 Active 1 tab PO DAILY Iron Polysaccharides Complex [Ferrex 150] Med 09/06/17 12:45 Active 150 mg PO DAILY Omeprazole Med 09/06/17 12:45 Active 20 mg PO BIDAC Pramipexole [Mirapex] Med 09/06/17 21:00 Active 0.5 mg PO BEDTIME Simvastatin [Zocor] Med 09/06/17 12:45 Active 20 mg PO DAILY Medication Orders Alprazolam (Xanax) 0.25 mg PO BID PRN PRN Reason: Anxiety Baclofen (Lioresal) 10 mg PO TID PRN PRN Reason: Muscle Spasms Diltiazem HCl (Cardizem Cd) 360 mg PO DAILY [facility] Last Admin: 09/06/17 13:34 Dose: 360 mg Docusate Sodium (Colace) 200 mg PO BID [facility] Last Admin: 09/06/17 13:32 Dose: 200 mg Escitalopram Oxalate (Lexapro) 20 mg PO DAILY [facility] Last Admin: 09/06/17 13:33 Dose: 20 mg Multivitamins/Minerals (Centrum) 1 tab PO DAILY [facility] Last Admin: 09/06/17 13:33 Dose: 1 tab Omeprazole (Omeprazole) 20 mg PO BIDAC [facility] Last Admin: 09/06/17 17:42 Dose: 20 mg Admin: 09/06/17 13:33 Dose: 20 mg Oxycodone/Acetaminophen (Percocet 325-5 Mg) 1 tab PO Q4H PRN PRN Reason: Pain Polysaccharide Iron Complex (Ferrex 150) 150 mg PO DAILY [facility] Last Admin: 09/06/17 13:33 Dose: 150 mg Pramipexole Dihydrochloride (Mirapex) 0.5 mg PO BEDTIME SHEY Simvastatin (Zocor) 20 mg PO DAILY [facility] Last Admin: 09/06/17 13:34 Dose: 20 mg Assessment/Plan Comment:: Ms. 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 During her recent hospitalization, she was in the ICU for 6 days prior to transfer to the floor for the remaining 4 days of the hospitalization. Notable changes to her home medication regimen were initiation of warfarin for chronic atrial fibrillation and decrease of metformin to 500mg BID in addition to being provided with an rx for Percocet 5/325 #10 to be used for severe breakthrough pain. Of note, she was given post-splenectomy vaccines prior to discharge, with plan for next vaccines at 8 weeks post-op. She was discharged with home health, planned 2-3 times per week with first visit planned today. She arrived home on 09/03/17 and reports that she has been having increasing abdominal pain since and reports no BM since being in the hospital and has used all her Percocet, but has not been taking any stool regimen medications. Hospitalization problems: # Abdominal pain: Likely secondary to post-operative status, constipation, and UTI. CT abdomen/pelvis without concerning abdominal abnormality. Post-operative pain was decreasing and she was prescribed #10 of Percocet 5/325, which she ran out of in her less than three days at home. Abdominal exam nonfocal and reassuring on initial exam. Monitor closely and treat constipation and UTI, as below. # Constipation: Likely significant contributor of abdominal pain given her lack of BM in 3+ days. Of note, Movantiq contraindicated with use of diltiazem. Start docusate BID and encourage fluid intake. Monitor I/O. # UTI: Suprapubic abdominal pain and UA with +nitrites, +leukocyte esterase, and +bacteria. Received ceftriaxone in the ED. Await culture and plan to transition to po antibiotic regimen tomorrow. # Anemia: Hgb 10.4 when last checked on 09/01/17 and 7.7 today. Normocytic. No obvious source of bleeding. Check FOBT and recheck CBC tomorrow to trend and guide further work-up. # LLE DVT: Noted incidentally on CT abdomen/pelvis. Ultrasound ordered in the ED and pending. In the setting of need for chronic anticoagulation for atrial fibrillation and current supratherapeutic INR, no additional management required at this time. # Supratherapeutic INR: INR 2.6 when last checked on 09/03/17 and 4.5 today. Question medication regimen adherence. Hold warfarin and recheck INR tomorrow. # Thrombocytosis: Plt 528 when last checked on 09/01/17 and 685 today. Likely reactive in setting of recent splenectomy. Recheck CBC tomorrow. Chronic conditions: # Chronic atrial fibrillation/HTN: Rate controlled and well controlled. Continue diltiazem. Hold warfarin due to supratherapeutic INR, as above. # FERCHO: Home CPAP. # Hx gastric bypass: Continue MV and iron supplementation. # GERD: Stable. Continue esomeprazole. # DMT2: Stable with good recent control for which she was decreased to metformin 500mg BID. Hold metformin x48h due to CT with contrast. Monitor BGs with meals and bedtime. # HLD: Continue pravastatin. # RLS: Continue pramipexole. # Back spasms: Continue baclofen prn. # Anxiety/depression: Continue escitalopram and lorazepam prn. Hospitalization details: # FEN: No IVF. Electrolytes normal. Cardiac diet. # PPX: INR supratherapeutic, so no additional DVT PPX. # Code status: Full. # Emergency contact: . # Disposition: Admit to observation status for abdominal pain and anemia. Anticipate discharge to home tomorrow if improved with plan as above.
[2017-09-06] MEDS ORDERED: Pramipexole 0.5 MG Tab PO SCH (21:00)
[2017-09-07 07:49] LABS: CHLORIDE,CL 107 mmol/L (98-115); SODIUM,NA 138 mmol/L (136-145)
[2017-09-07] MEDS: Omeprazole 20 MG Cap.CR PO SCH (07:49)
[2017-09-07] MEDS: Multivitamins with Minerals/Iron/Folic Acid/Lycopene Tab PO SCH (08:44)
[2017-09-07] MEDS: Iron Polysaccharides Complex 150 MG Cap PO SCH (08:45)
[2017-09-07] MEDS: Simvastatin 20 MG Tab PO SCH (08:45)
[2017-09-07] MEDS: Escitalopram 10 MG Tab PO SCH (08:45)
[2017-09-07] MEDS: Docusate Sodium 100 MG Cap PO SCH (08:46)
[2017-09-07] MEDS: Diltiazem 180 MG Cap.CD PO SCH (08:46)
[2017-09-07 08:48] VITALS: BP 111/60
[2017-09-07] MEDS ORDERED: Magnesium Hydroxide 400 MG/5 ML Susp 30 ML Cup PO ONE ×2 (09:05→09:12)
--- NOTE | 2017-09-08 08:42 | DISCH ---
FINAL DIAGNOSES: 1. Abdominal pain, likely secondary to postoperative status with concomitant constipation. 2. Urinary tract infection. 3. Acute anemia, normocytic, anisocytosis. 4. Supratherapeutic INR. 5. Reactive thrombocytosis likely related to S/P distal pancreatectomy and splenectomy. 6. Diverticular disease. Other chronic medical conditions include: 1. Chronic atrial fibrillation, Coumadin, [id number], CVR, Continue CCB. 2. Obstructive sleep apnea. Home CPAP. 3. GERD, stable with PPI. 4. T2DM, decreased metformin 500 b.i.d., (holding u36--[id number]. 5. HLD; statin. 6. Restless legs syndrome, Requip. 7. Back spasms, continue with baclofen. 8. Anxiety and depression, stable. HISTORY: This 72-year-old female was recently hospitalized and discharged after 10-day stay in [facility] from 08/24/2017 to 09/03/2017 when she had a distal pancreatectomy with a splenectomy for pancreatic cyst that she had which showed intraductal papillary neoplasm, most likely low-grade with focal intermediate grade areas. She was admitted in the ED at [facility] for some abdominal pain and some anemia. During her recent hospitalization, she was in the intensive care unit for actually six days and then transferred to the floor for the remaining four of her hospitalization. Normal changes to her home medication regimen were initiated, Coumadin for chronic atrial fibrillation and decrease of her metformin to 500 mg b.i.d. from 1000 p.o. b.i.d. She was given Percocet for severe breakthrough pain. She had been home for just few days, and she reports to the ED here due to abdominal pain, some constipation, likely opioid induced. When she was discharged from [facility] in [place], she had Home Health planned up to three times a week. The day she arrived in the ED was her first planned visit. She arrived home on 09/03/2017 and reported she has been having some increasing abdominal pain and no bowel movements since being hospitalized, and she had used up all her Percocet, and she had not been on any bowel regimen medications. The patient was admitted into observation. She did have a urinalysis which showed significant urinary tract infection. She was symptomatic for this. She was given a gram of Rocephin. She was discharged with oral ciprofloxacin due to likely MDRO, slightly complicated UTI. She did have constipation likely significant contributed to her abdominal pain with lack of bowel movements in the last four days. Movantik is contraindicated in the use of calcium channel hortencia and diltiazem. We did start docusate b.i.d. to encourage her fluid intake. As of discharge, she did not have any bowel movement. Milk of magnesia was given. However, she did not have any abdominal distention. She was passing gas, and she no longer had abdominal pain. She was significantly anemic during her hospital stay. Her hemoglobin was 10.4 on 09/01/2017. On the day of admission, it was 7.7, however, it was normocytic. No obvious source of bleeding. Fecal occult blood test was still pending as she did not have any source or stool. Repeat hemoglobin today at discharge 8.0. She was asymptomatic. No dizziness. Mean arterial pressure was normal. No hemodynamic instability, this can be monitored. She did have an incidental note on her abdominal CT and pelvis which did show left lower extremity DVT. However, this was suspicious as infectious report as she did have an INR of 4.5 with no signs or symptoms of a DVT. Subsequent ultrasound showed no DVT. Her Coumadin was held. On day of discharge, it was trending downward with 3.1. She did have reactive thrombocytosis, this was increasing on discharge, it was up to 824,000, likely due to combination of splenectomy and urinary tract infection, not overly concerning for hypercoagulation until it reaches a million; however, she is on Coumadin. She never became hemodynamically unstable. LABORATORY DATA: Hemoglobin 8.0, corresponding hematocrit 25.9, platelets 824,000. RDW is 18.3. INR 3.1, trending down. Sodium 138, potassium 4.9, BUN 11, creatinine 0.77, glucose 190, calcium 7.2. Urinalysis on admission, small amount of occult blood, positive nitrites, moderate leukocyte esterase, bacteria many, rbc's 0 to 5, wbc's greater than 100. PHYSICAL EXAM ON DISCHARGE: VITAL SIGNS: The patient is 5 feet 6 inches. She is full code, 162 pounds. Temperature 97.9, heart rate 84 and regular, blood pressure 111/60, mean arterial pressure is 78, O2 sats 97% on room air. GENERAL: The patient is alert and oriented. LUNGS: Clear to auscultation. CARDIOVASCULAR: Regular rate and rhythm, despite chronic atrial fibrillation. No S3 sounds. ABDOMEN: Flat. Fair bowel tones. Nontender. Incisional midline. No wound dehiscence. Steri-Strips peeling, healing well. No suprapubic tenderness. EXTREMITIES: Left lower extremity, some ecchymoses in her right thigh. Lower extremities, negative Homans sign. Good distal pulses. No edema. Negative CVA tenderness. MEDICATION ADJUSTMENTS OR CHANGES: 1. Metformin 500 mg p.o. b.i.d. (decreased from 1000 b.i.d.). 2. Hydrocodone discontinued. 3. Milk of magnesia 1 ounce p.o. daily p.r.n. for constipation (newly added). 4. Docusate sodium p.o. b.i.d. (newly added) 5. Ciprofloxacin 250 mg p.o. b.i.d. x4 days (newly added). IMAGING: Abdominal pelvic CT with IV contrast demonstrated incidental finding of left common femoral DVT (see above clarification); colonic diverticular disease, no acute process, Venous Doppler lower extremity bilateral, no DVT. However, proximal right thigh may represent hematoma and an occluded left greater saphenous vein. Microbiology report: Urine culture pending. Abdominal wound incision, no growth after one day. REFERRAL: Home Health referral. DISPOSITION: The patient was discharged from observation home status self-care with home health. The patient is to report worsening constipation, anymore abdominal pain, nausea, vomiting, or increase in the right or lower leg pain, any CVA tenderness or any dizziness or GI bleeding or dark stools. RECOMMENDATIONS AT FOLLOWUP: Monitor INR however Coumadin clinic notified on discharge, Check up on urine culture. Repeat hemoglobin. Obtain fecal occult blood. Monitor ongoing constipation status. Restarting metformin. MEDICAL DECISION MAKIN minutes was spent on the discharge planning and process. /[id number]/MODL MTDD
== END 2017-09-07 12:35 | disposition home or self-care (01) ==
LOC: KA.ED 07:30 → KA.MS 10:23
PROVIDERS: ADMIT Physician Assistant Surgical; ATTEND Family Medicine
DX: R10.9 Unspecified abdominal pain (principal); N39.0 Urinary tract infection, site not specified; K59.00 Constipation, unspecified; D64.9 Anemia, unspecified; D47.3 Essential (hemorrhagic) thrombocythemia; I82.402 Acute embolism and thrombosis of unspecified deep veins of left lower extremity; I48.2 Chronic atrial fibrillation; G47.33 Obstructive sleep apnea (adult) (pediatric); K21.9 Gastro-esophageal reflux disease without esophagitis; E11.9 Type 2 diabetes mellitus without complications; E78.5 Hyperlipidemia, unspecified; G25.81 Restless legs syndrome; F41.9 Anxiety disorder, unspecified; F32.9 Major depressive disorder, single episode, unspecified; Z99.89 Dependence on other enabling machines and devices; Z79.01 Long term (current) use of anticoagulants; Z79.84 Long term (current) use of oral hypoglycemic drugs; Z79.899 Other long term (current) drug therapy; Z88.8 Allergy status to other drugs, medicaments and biological substances; Z91.013 Allergy to seafood; Z91.018 Allergy to other foods; Z91.048 Other nonmedicinal substance allergy status; Z86.19 Personal history of other infectious and parasitic diseases; Z90.49 Acquired absence of other specified parts of digestive tract; Z90.710 Acquired absence of both cervix and uterus; Z98.49 Cataract extraction status, unspecified eye; Z98.890 Other specified postprocedural states; Z87.891 Personal history of nicotine dependence; Z98.84 Bariatric surgery status; Z90.81 Acquired absence of spleen
CPT/HCPCS: 36415; 74177; 80048; 80053; 81001; 82150; 82962; 83690; 85025; 85610; 85730; 87070; 87086; 87088; 87186; 93970; 96374; 99284; 99285; A9270; J0696; J7040; Q9967; 96360; G0378

== ENCOUNTER 2017-09-30 13:00 | Emergency (ER) | payer MEDICARE, MEDICAID ==
[2017-09-30 13:06] VITALS: BP 108/47
[2017-09-30] MEDS ORDERED: cefTRIAXone 1 GM Vial IVPUSH ONE (14:08)
--- NOTE | 2017-09-30 14:21 | EDM.PDOC ---
ED HPI GENERAL MEDICAL PROBLEM - General Chief Complaint: Abdominal Pain Stated Complaint: ABDOMINAL PAAIN Time Seen by Provider: 09/30/17 14:07 Source of Information: Reports: Patient, Family () History Limitations: Reports: No Limitations - History of Present Illness INITIAL COMMENTS - FREE TEXT/NARRATIVE: PATIENT IS A 72-YEAR-OLD FEMALE WHO PRESENTS THE EMERGENCY DEPARTMENT TODAY WITH WORSENING ABDOMINAL PAIN. 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 SHE WAS RELEASED FROM THE HOSPITAL ON 09/03/2017. HOWEVER, SHE PRESENTED TO [facility] ON 09/06/2017 WITH A COMPLAINT OF ABDOMINAL PAIN. PATIENT WAS ADMITTED TO THE HOSPITAL AT THAT TIME. PATIENT STATES THAT ABDOMINAL PAIN DID RESOLVE WHILE INPATIENT, BUT BEGAN AGAIN ABOUT A WEEK AGO. ABDOMINAL PAIN HAS PROGRESSIVELY WORSENED AND IS DESCRIBED A PULLING SENSATION ACROSS HER ABDOMEN. SHE STATES SHE HAS TENDERNESS ON MID ABDOMINAL SUTURE LINE. PATIENT DENIES FEVER, CHEST PAIN, SHORTNESS OF BREATH, HEADACHE, DYSURIA, BOWEL CHANGES, OR BLOOD IN STOOL. SHE DOES ADMIT TO ONE EPISODE OF VOMITING LAST NIGHT AFTER DINNER. BUT HAS SINCE HAD 2 MEALS WITH NO EPISODES OF NAUSEA OR VOMITING. Onset: Gradual Duration: Week(s):, Chronic Location: Reports: Abdomen Quality: Reports: Ache, Other (PULLING) Improves with: Reports: None Worsens with: Reports: None Associated Symptoms: Reports: No Other Symptoms Bilateral Middle Abdomen Pain Score (Numeric/FACES): 10 - Related Data Allergies Allergy/AdvReac Type Severity Reaction Status Date / Time atorvastatin calcium Allergy Severe Nausea Verified 09/30/17 13:07 [From Lipitor] iodine Allergy Rash Verified 09/30/17 13:07 lisinopril Allergy Cough Verified 09/30/17 13:07 strawberry [[place]] Allergy Hives Verified 09/30/17 13:07 fish Allergy Severe Airway Uncoded 09/30/17 13:07 Tightness Home Meds: Home Meds Diltiazem HCl [Diltiazem 24Hr ER] 360 mg PO DAILY 11/10/13 [History] Escitalopram [Lexapro] 20 mg PO BEDTIME 11/10/13 [History] Multivitamin/Iron/Folic Acid [Multi-Day Plus Iron Tablet] 1 tab PO DAILY [History] Esomeprazole [NexIUM] 40 mg PO BID 04/21/17 [History] Iron Polysaccharide Complex [Ferric X-150] 150 mg PO DAILY 04/21/17 [History] Pramipexole Di-HCl [Pramipexole Dihydrochloride] 0.5 mg PO BEDTIME 04/21/17 [ History] Pravastatin [Pravachol] 40 mg PO DAILY 04/21/17 [History] Baclofen 10 mg PO TID PRN 04/29/17 [History] ALPRAZolam [Alprazolam] 0.25 mg PO BID 09/06/17 [History] Magnesium Hydroxide [Milk of Magnesia] 30 ml PO BEDTIME PRN #10 cup 09/07/17 [Rx ] metFORMIN [Glucophage XR] 500 mg PO BIDMEALS #60 tab.er 09/07/17 [Rx] Cephalexin [Keflex] 500 mg PO TID #21 cap 09/30/17 [Rx] Warfarin [Coumadin] 5 mg PO DAILY 09/30/17 [History] oxyCODONE HCl/Acetaminophen [oxyCODONE-Acetaminophen 5-325] 1 tab PO Q6H PRN [History] Past Medical History HEENT History: Reports: Cataract, Hard of Hearing, Impaired Vision Cardiovascular History: Reports: Afib, High Cholesterol, Hypertension, Other ( See Below) Other Cardiovascular History: Varicose veins. Respiratory History: Reports: Other (See Below) Other Respiratory History: bronchitis Gastrointestinal History: Reports: Other (See Below) Other Gastrointestinal History: Dysphagia. Genitourinary History: Reports: STD [employer]ENE[employer] GRADER History: Reports: None Musculoskeletal History: Reports: Other (See Below) Other Musculoskeletal History: Chronic shoulder pain. Rotator cuff tear and repair of both shoulders. Restless leg syndrome. Psychiatric History: Reports: Anxiety, Depression Endocrine/Metabolic History: Reports: Diabetes, Type II Hematologic History: Reports: Anemia, Anticoagulation Therapy, B12 Deficiency, Iron Deficiency Oncologic (Cancer) History: Reports: None - Infectious Disease History Infectious Disease History: Reports: Chicken Pox, Measles, Mumps, Pertussis ( Whooping Cough) - Past Surgical History Head Surgeries/Procedures: Reports: None HEENT Surgical History: Reports: Cataract Surgery Respiratory Surgical History: Reports: None GI Surgical History: Reports: Bariatric Procedure, Cholecystectomy, Colonoscopy , EGD Other GI Surgeries/Procedures: Part of pancreas removed and spleenectomy. Female Surgical History: Reports: Breast Biopsy, Hysterectomy, Other (See Below) Other Female Surgeries/Procedures: Breast lumpectomy. Musculoskeletal Surgical History: Reports: Shoulder Surgery Oncologic Surgical History: Reports: Lumpectomy Social & Family History - Family History Family Medical History: Noncontributory - Tobacco Use Smoking Status *Q: Former Smoker Years of Tobacco use: 5 Packs/Tins Daily: 1 Used Tobacco, but Quit: Yes Month Tobacco Last Used: 360 Second Hand Smoke Exposure: Yes - Caffeine Use Caffeine Use: Reports: Coffee, Soda - Alcohol Use Days Per Week of Alcohol Use: 0 - Recreational Drug Use Recreational Drug Use: No ED ROS GENERAL - Review of Systems Review Of Systems: ROS reveals no pertinent complaints other than HPI. Constitutional: Reports: No Symptoms HEENT: Reports: No Symptoms Respiratory: Reports: No Symptoms Cardiovascular: Reports: No Symptoms Endocrine: Reports: No Symptoms GI/Abdominal: Reports: Abdominal Pain, Vomiting. Denies: Constipation, Diarrhea : Reports: No Symptoms Musculoskeletal: Reports: No Symptoms Skin: Reports: No Symptoms Neurological: Reports: No Symptoms Psychiatric: Reports: No Symptoms Hematologic/Lymphatic: Reports: No Symptoms Immunologic: Reports: No Symptoms ED EXAM, GI/ABD - Physical Exam Exam: See Below Exam Limited By: No Limitations General Appearance: Alert, WD/WN, No Apparent Distress Nose: Normal Inspection Throat/Mouth: Normal Inspection, Normal Oropharynx, No Airway Compromise Head: Atraumatic, Normocephalic Neck: Normal Inspection, Supple Respiratory/Chest: No Respiratory Distress, Lungs Clear, Normal Breath Sounds, No Accessory Muscle Use, Chest Non-Tender Cardiovascular: Regular Rate, Rhythm, No Murmur GI/Abdominal Exam: Normal Bowel Sounds, Soft, Tender (ON MID-LINE SUTURE LINE) Back Exam: Normal Inspection. No: CVA Tenderness (L), CVA Tenderness (R) Extremities: Normal Inspection, No Pedal Edema Neurological: Alert, Oriented, Normal Cognition Psychiatric: Normal Affect, Normal Mood Skin Exam: Warm, Dry, Intact, Normal Color, No Rash Course - Vital Signs Last Recorded V/S: Last Vital Signs Temp 98.7 F 09/30/17 13:01 Pulse 69 09/30/17 13:01 Resp 16 09/30/17 13:01 BP 108/47 L 09/30/17 13:01 Pulse Ox 96 09/30/17 13:01 - Orders/Labs/Meds Orders: Active Orders 24 hr Category Date Time Status Abdomen Pelvis w Cont [CT] Stat Exams 09/30/17 13:35 Ordered CULTURE URINE [RM] Stat Lab 09/30/17 14:11 Ordered Labs: Laboratory Tests 09/30/17 09/30/17 09/30/17 Range/Units 13:14 13:14 13:14 WBC 8.9 (5.0-10.0) 10^3/uL RBC 3.41 L (3.80-5.50) 10^6/uL Hgb 9.0 L (12.0-16.0) g/dL Hct 27.9 L (37.0-47.0) % MCV 81.8 L (82.0-92.0) fL MCH 26.5 L (27.0-31.0) pg MCHC 32.4 (32.0-36.0) g/dL RDW 17.7 H (11.5-14.5) % Plt Count 424 H (150-300) 10^3/uL MPV 7.9 (7.4-10.4) fL Neut % (Auto) 75.5 H (50.0-70.0) % Lymph % (Auto) 11.2 L (20.0-40.0) % [place] % (Auto) 11.7 H (2.0-8.0) % Eos % (Auto) 0.6 L (1.0-3.0) % Baso % (Auto) 1.0 (0.0-1.0) % Neut # (Auto) 6.7 (2.5-7.0) 10^3/uL Lymph # (Auto) 1.0 (1.0-4.0) 10^3/uL [place] # (Auto) 1.0 H (0.1-0.8) 10^3/uL Eos # (Auto) 0.1 (0.1-0.3) 10^3/uL Baso # (Auto) 0.1 (0.0-0.1) 10^3/uL PT 22.2 H (8.9-11.4) SEC INR 2.2 H (0.9-1.1) Sodium 136 (136-145) mmol/L Potassium 4.8 (3.3-5.3) mmol/L Chloride 105 (98-115) mmol/L Carbon Dioxide 21.3 (21.0-32.0) mmol/L BUN 22 (6-25) mg/dL Creatinine 1.48 H (0.51-1.17) mg/dL Est Cr Clr Drug Dosing 31.22 mL/min Estimated GFR (MDRD) 34 mL/min Glucose 203 H (70-110) mg/dL Calcium 7.6 L (8.7-10.3) mg/dL Total Bilirubin 0.2 (0.2-1.0) mg/dL AST 11 L (15-37) U/L ALT 11 L (12-78) U/L Alkaline Phosphatase 111 (46-116) IU/L Total Protein 6.2 L (6.4-8.2) g/dL Albumin 2.79 L (3.00-4.80) g/dL Lipase 59 L (73-393) U/L Specimen Type Urine Color (YELLOW) Urine Appearance (CLEAR) Urine pH (5.0-9.0) Ur Specific [place] (1.005-1.030) Urine Protein (NEGATIVE) mg/dL Urine Glucose (UA) (NEGATIVE) mg/dL Urine Ketones (NEGATIVE) mg/dL Urine Occult Blood (NEGATIVE) Urine Nitrite (NEGATIVE) Urine Bilirubin (NEGATIVE) Urine Urobilinogen (0.2-1.0) E.U./dL Ur Leukocyte Esterase (NEGATIVE) Urine RBC /HPF Urine WBC /HPF Ur Epithelial Cells /LPF Urine Bacteria (NONE TO FEW) /HPF 09/30/ Range/Units 13:28 WBC (5.0-10.0) 10^3/uL RBC (3.80-5.50) 10^6/uL Hgb (12.0-16.0) g/dL Hct (37.0-47.0) % MCV (82.0-92.0) fL MCH (27.0-31.0) pg MCHC (32.0-36.0) g/dL RDW (11.5-14.5) % Plt Count (150-300) 10^3/uL MPV (7.4-10.4) fL Neut % (Auto) (50.0-70.0) % Lymph % (Auto) (20.0-40.0) % [place] % (Auto) (2.0-8.0) % Eos % (Auto) (1.0-3.0) % Baso % (Auto) (0.0-1.0) % Neut # (Auto) (2.5-7.0) 10^3/uL Lymph # (Auto) (1.0-4.0) 10^3/uL [place] # (Auto) (0.1-0.8) 10^3/uL Eos # (Auto) (0.1-0.3) 10^3/uL Baso # (Auto) (0.0-0.1) 10^3/uL PT (8.9-11.4) SEC INR (0.9-1.1) Sodium (136-145) mmol/L Potassium (3.3-5.3) mmol/L Chloride (98-115) mmol/L Carbon Dioxide (21.0-32.0) mmol/L BUN (6-25) mg/dL Creatinine (0.51-1.17) mg/dL Est Cr Clr Drug Dosing mL/min Estimated GFR (MDRD) mL/min Glucose (70-110) mg/dL Calcium (8.7-10.3) mg/dL Total Bilirubin (0.2-1.0) mg/dL AST (15-37) U/L ALT (12-78) U/L Alkaline Phosphatase (46-116) IU/L Total Protein (6.4-8.2) g/dL Albumin (3.00-4.80) g/dL Lipase (73-393) U/L Specimen Type Urincc Urine Color Yellow (YELLOW) Urine Appearance Slightly cloudy H (CLEAR) Urine pH 5.5 (5.0-9.0) Ur Specific [place] 1.020 (1.005-1.030) Urine Protein 100 H (NEGATIVE) mg/dL Urine Glucose (UA) Negative (NEGATIVE) mg/dL Urine Ketones Trace H (NEGATIVE) mg/dL Urine Occult Blood Negative (NEGATIVE) Urine Nitrite Negative (NEGATIVE) Urine Bilirubin Negative (NEGATIVE) Urine Urobilinogen 1.0 (0.2-1.0) E.U./dL Ur Leukocyte Esterase Negative (NEGATIVE) Urine RBC 5-10 H /HPF Urine WBC 10-20 H /HPF Ur Epithelial Cells Moderate H /LPF Urine Bacteria Moderate H (NONE TO FEW) /HPF Meds: Medications Discontinued Medications Generic Name Dose Route Start Last Admin Trade Name Adrianna PRN Reason Stop Dose Admin Ceftriaxone Sodium 1 gm 09/30/17 14:08 Rocephin IVPUSH 09/30/17 14:09 ONETIME ONE - Radiology Interpretation Free Text/Narrative:: CT ABDOMEN AND PELVIS WITH IV CONTRAST SHOWS NO ACUTE FINDINGS. CT Results Date: 09/30/17 - Re-Assessments/Exams Free Text/Narrative Re-Assessment/Exam: 09/30/17 15:11 Patient afebrile, nontoxic appearing. Vital signs stable. Pain resolved. Patient given 1 mg IM Rocephin for UTI, urine for culture sent to lab. Departure - Departure Time of Disposition: 15:13 Disposition: Home, Self-Care 01 Condition: Good Clinical Impression: UTI (urinary tract infection) Qualifiers: Urinary tract infection type: acute cystitis Hematuria presence: without hematuria Qualified Code(s): N30.00 - Acute cystitis without hematuria Abdominal pain Qualifiers: Abdominal location: generalized Qualified Code(s): R10.84 - Generalized abdominal pain - Discharge Information Instructions: Abdominal Pain, Adult, [id number], Urinary Tract Infection, Adult Referrals: Augustina Young MD [Primary Care Provider] - Additional Instructions: FOLLOW-UP WITH YOUR PRIMARY CARE DOCTOR IN THE NEXT 2-3 DAYS. RETURN TO EMERGENCY DEPARTMENT IF SYMPTOMS CONTINUE OR WORSEN. - My Orders Last 24 Hours: My Active Orders 09/30/17 13:35 Abdomen Pelvis w Cont [CT] Stat 09/30/17 14:11 CULTURE URINE [RM] Stat - Assessment/Plan Last 24 Hours: My Active Orders 09/30/17 13:35 Abdomen Pelvis w Cont [CT] Stat 09/30/17 14:11 CULTURE URINE [RM] Stat Assessment:: UTI, abdominal pain Plan: Follow-up with PCP in 2-3 days.
[2017-09-30] MEDS ORDERED: Sodium Chloride 0.9% 50 ML SDV FLUSH ONE (15:18)
[2017-09-30] MEDS ORDERED: Iopamidol 612 MG/ML 75 ML Bottle IVPUSH ONE (21:46)
== END 2017-09-30 15:25 | disposition home or self-care (01) ==
LOC: KA.ED 13:00
DX: N30.00 Acute cystitis without hematuria (principal); I10 Essential (primary) hypertension; E78.00 Pure hypercholesterolemia, unspecified; F32.9 Major depressive disorder, single episode, unspecified; E11.9 Type 2 diabetes mellitus without complications; Z79.01 Long term (current) use of anticoagulants; Z87.891 Personal history of nicotine dependence; Z79.84 Long term (current) use of oral hypoglycemic drugs; Z79.899 Other long term (current) drug therapy; Z88.8 Allergy status to other drugs, medicaments and biological substances; Z91.013 Allergy to seafood; Z91.018 Allergy to other foods
CPT/HCPCS: 74177; 80053; 81001; 83690; 85025; 85610; 87086; 96374; 99284; J0696; Q9967

== ENCOUNTER 2019-02-28 16:38 | Inpatient (IN) | payer MEDICARE, MEDICAID ==
[2019-02-28] MEDS ORDERED: Ondansetron 4 MG/2 ML SDV IV PRN (16:47)
[2019-02-28] MEDS: Morphine 2 MG/ML Syringe IVPUSH PRN (17:21)
[2019-02-28] MEDS: Sodium Chloride 0.9% 1,000 ML IV SCH (17:21)
[2019-02-28 17:48] LABS: ANION GAP 18.7 mmol/L (5-15)
[2019-02-28] MEDS ORDERED: Diatrizoate Meglumine/Diatrizoate Sodium 37% 120 ML Bottle PO ONE (18:16)
--- NOTE | 2019-02-28 19:11 | CT ---
[id number] CT/CT Abdomen Pelvis WO IV EXAM: CT Abdomen Pelvis WO IV CLINICAL DATA: RIGHT LOWER QUADRANT ABDOMINAL PAIN. COMPARISON STUDY: September 2017. FINDINGS: Gallbladder and spleen have been resected. Postsurgical change from gastric bypass. No small bowel obstruction or inflammation. Ventral abdominal wall midline hernia containing an unobstructed loop of the transverse colon. Small sliding-type hiatus hernia. In the abdominal wall right of midline, there is a heterogeneous mass measuring approximately 6 cm transverse x 6.4 cm AP spanning a craniocaudal dimension approximately 16 cm. Appearance and location is most consistent with a rectus sheath hematoma. Unable to assess for active bleeding given inability to administer contrast material. No evidence of extension into the peritoneal cavity at this time. Colonic diverticulosis without evidence of acute diverticulitis. No small bowel obstruction or inflammation. IMPRESSION: 16 x 6.4 x 6 cm ventral abdominal wall mass right of midline centered in the rectus sheath most consistent with a hematoma. Correlate for history of injury or anticoagulation. Other findings are described above. Maxi Petty MD 02/28/19 [id number] Thank you for allowing us to participate in the care of your patient.
[2019-02-28] MEDS ORDERED: Acetaminophen 325 MG Tab PO PRN (20:29)
[2019-02-28] MEDS ORDERED: Morphine 2 MG/ML Syringe IVPUSH ONE (20:52)
[2019-02-28] MEDS ORDERED: Donepezil 10 MG Tab PO SCH (21:00)
[2019-02-28] MEDS ORDERED: Pramipexole 0.5 MG Tab PO SCH (21:00)
[2019-02-28] MEDS ORDERED: Melatonin 3 MG Tab PO PRN (21:28)
[2019-02-28] MEDS: busPIRone 5 MG Tab PO SCH (21:38)
[2019-03-01] MEDS: Acetaminophen/HYDROcodone 325-5 MG Tab PO PRN ×2 (00:37→12:49)
[2019-03-01] MEDS: Morphine 2 MG/ML Syringe IVPUSH PRN ×2 (01:27→10:00)
[2019-03-01] MEDS ORDERED: Esomeprazole 40 MG Cap PO SCH (07:30)
[2019-03-01] MEDS ORDERED: metFORMIN 500 MG Tab PO SCH (08:00)
[2019-03-01] MEDS ORDERED: glipiZIDE 5 MG Tab.ER PO SCH (08:00)
[2019-03-01] MEDS: busPIRone 5 MG Tab PO SCH (08:19)
[2019-03-01] MEDS ORDERED: Diltiazem 120 MG Cap.CD PO SCH (09:00)
[2019-03-01] MEDS ORDERED: Metoprolol Succinate 25 MG Tab.ER PO SCH (09:00)
[2019-03-01] MEDS ORDERED: Phytonadione 100 MCG Tab PO SCH (09:00)
[2019-03-01] MEDS ORDERED: Iron Polysaccharides Complex 150 MG Cap PO SCH (09:00)
[2019-03-01] MEDS ORDERED: Escitalopram 10 MG Tab PO SCH (09:00)
[2019-03-01] MEDS ORDERED: CILOSTAZOL 100 MG PO SCH (09:00)
--- NOTE | 2019-03-01 09:03 | PCM.PN ---
- General Info Date of Service: 03/01/19 - Patient Data Vitals - Most Recent: Last Vital Signs Temp 97.9 F 03/01/19 06:50 Pulse 76 03/01/19 08:19 Resp 20 03/01/19 06:50 BP 122/59 L 03/01/19 08:19 Pulse Ox 95 03/01/19 07:30 Weight - Most Recent: 176 lb 12.8 oz I&O - Last 24 Hours: Intake & Output 02/28/19 03/01/19 03/01/19 22:59 06:59 14:59 Intake Total 461 501 Output Total 200 600 Balance 261 -99 Lab Results Last 24 Hours: Laboratory Results - last 24 hr 02/28/19 02/28/19 02/28/19 Range/Units 17:20 17:20 18:40 WBC 9.51 (5.00-10.00) 10^3/uL RBC 3.48 L (3.80-5.50) 10^6/uL Hgb 9.0 L (12.0-16.0) g/dL Hct 28.8 L (37.0-47.0) % MCV 82.8 D (82.0-92.0) fL MCH 25.9 L (27.0-31.0) pg MCHC 31.3 L (32.0-36.0) g/dL RDW 18.4 H (11.5-14.5) % Plt Count 562 H (150-400) 10^3/uL MPV 8.9 (7.4-10.4) fL Immature Gran % (Auto) 0.7 (0.0-5.0) % Neut % (Auto) 69.2 (50.0-70.0) % Lymph % (Auto) 17.4 L (20.0-40.0) % [place] % (Auto) 9.3 H (2.0-8.0) % Eos % (Auto) 2.5 (1.0-3.0) % Baso % (Auto) 0.9 (0.0-1.0) % Immature Gran # (Auto) 0.07 (0.00-0.50) 10^3/uL Neut # (Auto) 6.58 (2.50-7.00) 10^3/uL Lymph # (Auto) 1.65 (1.00-4.00) 10^3/uL [place] # (Auto) 0.88 H (0.10-0.80) 10^3/uL Eos # (Auto) 0.24 (0.10-0.30) 10^3/uL Baso # (Auto) 0.09 (0.00-0.10) 10^3/uL PT INR (0.9-1.1) Sodium 135 L (136-145) mmol/L Potassium 5.2 (3.3-5.3) mmol/L Chloride 99 (98-115) mmol/L Carbon Dioxide 22.5 (21.0-32.0) mmol/L Anion Gap 18.7 H (5-15) mmol/L BUN 32 H (6-25) mg/dL Creatinine 1.58 H (0.51-1.17) mg/dL Est Cr Clr Drug Dosing 28.36 mL/min Estimated GFR (MDRD) 32 mL/min Glucose 127 H (75 - 99) mg/dL Calcium 8.6 L (8.7-10.3) mg/dL Total Bilirubin 0.2 (0.2-1.0) mg/dL AST 19 (15-37) U/L ALT 15 (12-78) U/L Alkaline Phosphatase 79 (46-116) IU/L Total Protein 6.9 (6.4-8.2) g/dL Albumin 3.33 (3.00-4.80) g/dL Specimen Type Urinvoid Urine Color Yellow (YELLOW) Urine Appearance Slightly cloudy H (CLEAR) Urine pH 5.5 (5.0-9.0) Ur Specific [place] <= 1.005 (1.005-1.030) Urine Protein 30 H (NEGATIVE) mg/dL Urine Glucose (UA) Negative (NEGATIVE) mg/dL Urine Ketones Negative (NEGATIVE) mg/dL Urine Occult Blood Trace-intact H (NEGATIVE) Urine Nitrite Negative (NEGATIVE) Urine Bilirubin Negative (NEGATIVE) Urine Urobilinogen 0.2 (0.2-1.0) E.U./dL Ur Leukocyte Esterase Negative (NEGATIVE) Urine RBC 0-5 (0-5) /HPF Urine WBC 0-5 (0-5) /HPF Ur Epithelial Cells Few /LPF Urine Bacteria Few (NONE TO FEW) /HPF 02/28/19 03/01/19 03/01/19 Range/Units 20:50 07:00 07:00 WBC 10.33 H (5.00-10.00) 10^3/uL RBC 2.93 L (3.80-5.50) 10^6/uL Hgb 7.7 L (12.0-16.0) g/dL Hct 24.7 L (37.0-47.0) % MCV 84.3 (82.0-92.0) fL MCH 26.3 L (27.0-31.0) pg MCHC 31.2 L (32.0-36.0) g/dL RDW 18.4 H (11.5-14.5) % Plt Count 481 H D (150-400) 10^3/uL MPV 9.1 (7.4-10.4) fL Immature Gran % (Auto) 0.8 (0.0-5.0) % Neut % (Auto) 58.4 (50.0-70.0) % Lymph % (Auto) 21.8 (20.0-40.0) % [place] % (Auto) 15.6 H (2.0-8.0) % Eos % (Auto) 2.7 (1.0-3.0) % Baso % (Auto) 0.7 (0.0-1.0) % Immature Gran # (Auto) 0.08 (0.00-0.50) 10^3/uL Neut # (Auto) 6.04 (2.50-7.00) 10^3/uL Lymph # (Auto) 2.25 (1.00-4.00) 10^3/uL [place] # (Auto) 1.61 H (0.10-0.80) 10^3/uL Eos # (Auto) 0.28 (0.10-0.30) 10^3/uL Baso # (Auto) 0.07 (0.00-0.10) 10^3/uL PT TNP 19.5 H D INR 2.6 H 1.9 H (0.9-1.1) Sodium (136-145) mmol/L Potassium (3.3-5.3) mmol/L Chloride (98-115) mmol/L Carbon Dioxide (21.0-32.0) mmol/L Anion Gap (5-15) mmol/L BUN (6-25) mg/dL Creatinine (0.51-1.17) mg/dL Est Cr Clr Drug Dosing mL/min Estimated GFR (MDRD) mL/min Glucose (75 - 99) mg/dL Calcium (8.7-10.3) mg/dL Total Bilirubin (0.2-1.0) mg/dL AST (15-37) U/L ALT (12-78) U/L Alkaline Phosphatase (46-116) IU/L Total Protein (6.4-8.2) g/dL Albumin (3.00-4.80) g/dL Specimen Type Urine Color (YELLOW) Urine Appearance (CLEAR) Urine pH (5.0-9.0) Ur Specific [place] (1.005-1.030) Urine Protein (NEGATIVE) mg/dL Urine Glucose (UA) (NEGATIVE) mg/dL Urine Ketones (NEGATIVE) mg/dL Urine Occult Blood (NEGATIVE) Urine Nitrite (NEGATIVE) Urine Bilirubin (NEGATIVE) Urine Urobilinogen (0.2-1.0) E.U./dL Ur Leukocyte Esterase (NEGATIVE) Urine RBC (0-5) /HPF Urine WBC (0-5) /HPF Ur Epithelial Cells /LPF Urine Bacteria (NONE TO FEW) /HPF 03/01/19 Range/Units 07:00 WBC (5.00-10.00) 10^3/uL RBC (3.80-5.50) 10^6/uL Hgb (12.0-16.0) g/dL Hct (37.0-47.0) % MCV (82.0-92.0) fL MCH (27.0-31.0) pg MCHC (32.0-36.0) g/dL RDW (11.5-14.5) % Plt Count (150-400) 10^3/uL MPV (7.4-10.4) fL Immature Gran % (Auto) (0.0-5.0) % Neut % (Auto) (50.0-70.0) % Lymph % (Auto) (20.0-40.0) % [place] % (Auto) (2.0-8.0) % Eos % (Auto) (1.0-3.0) % Baso % (Auto) (0.0-1.0) % Immature Gran # (Auto) (0.00-0.50) 10^3/uL Neut # (Auto) (2.50-7.00) 10^3/uL Lymph # (Auto) (1.00-4.00) 10^3/uL [place] # (Auto) (0.10-0.80) 10^3/uL Eos # (Auto) (0.10-0.30) 10^3/uL Baso # (Auto) (0.00-0.10) 10^3/uL PT INR (0.9-1.1) Sodium 135 L (136-145) mmol/L Potassium 5.2 (3.3-5.3) mmol/L Chloride 102 (98-115) mmol/L Carbon Dioxide 24.2 (21.0-32.0) mmol/L Anion Gap 14.0 (5-15) mmol/L BUN 34 H (6-25) mg/dL Creatinine 1.62 H (0.51-1.17) mg/dL Est Cr Clr Drug Dosing 27.66 mL/min Estimated GFR (MDRD) 31 mL/min Glucose 92 (75 - 99) mg/dL Calcium 7.9 L (8.7-10.3) mg/dL Total Bilirubin 0.3 (0.2-1.0) mg/dL AST 17 (15-37) U/L ALT 13 (12-78) U/L Alkaline Phosphatase 69 (46-116) IU/L Total Protein 5.6 L (6.4-8.2) g/dL Albumin 2.63 L (3.00-4.80) g/dL Specimen Type Urine Color (YELLOW) Urine Appearance (CLEAR) Urine pH (5.0-9.0) Ur Specific [place] (1.005-1.030) Urine Protein (NEGATIVE) mg/dL Urine Glucose (UA) (NEGATIVE) mg/dL Urine Ketones (NEGATIVE) mg/dL Urine Occult Blood (NEGATIVE) Urine Nitrite (NEGATIVE) Urine Bilirubin (NEGATIVE) Urine Urobilinogen (0.2-1.0) E.U./dL Ur Leukocyte Esterase (NEGATIVE) Urine RBC (0-5) /HPF Urine WBC (0-5) /HPF Ur Epithelial Cells /LPF Urine Bacteria (NONE TO FEW) /HPF Med Orders - Current: Current Medications Acetaminophen (Tylenol) 650 mg PO Q4H PRN PRN Reason: Pain Hydrocodone Bitart/Acetaminophen ([place] 325-5 Mg) 1 tab PO BID PRN PRN Reason: Pain Last Admin: 03/01/19 00:37 Dose: 1 tab Buspirone HCl (Buspar) 15 mg PO BID [facility] Last Admin: 03/01/19 08:19 Dose: 15 mg Diltiazem HCl (Cardizem Cd) 120 mg PO DAILY [facility] Last Admin: 03/01/19 08:19 Dose: 120 mg Donepezil HCl (Aricept) 5 mg PO BEDTIME [facility] Last Admin: 02/28/19 21:01 Dose: 5 mg Escitalopram Oxalate (Lexapro) 10 mg PO DAILY [facility] Last Admin: 03/01/19 08:19 Dose: 10 mg Glipizide (Glucotrol Xl) 5 mg PO WITHBREAKFAST [facility] Last Admin: 03/01/19 08:19 Dose: 5 mg Sodium Chloride (Normal Saline) 1,000 mls @ 50 mls/hr IV ASDIRECTED [facility] Last Admin: 02/28/19 17:21 Dose: 50 mls/hr Melatonin (Melatonin) 3 mg PO BEDTIME PRN PRN Reason: Insomnia Last Admin: 02/28/19 21:38 Dose: 3 mg Metformin HCl (Glucophage) 500 mg PO BIDMEALS [facility] Last Admin: 03/01/19 08:19 Dose: 500 mg Metoprolol Succinate (Toprol Xl) 25 mg PO DAILY [facility] Last Admin: 03/01/19 08:19 Dose: 25 mg Morphine Sulfate (Morphine) 2 mg IVPUSH Q4H PRN PRN Reason: Pain (severe 7-10) Last Admin: 03/01/19 01:27 Dose: 2 mg Non-Formulary Medication (Cilostazol [Cilostazol]) 100 mg PO BID [facility] Omeprazole (Omeprazole) 40 mg PO BIDAC [facility] Ondansetron HCl (Zofran) 4 mg IV Q4H PRN PRN Reason: Nausea/Vomiting Last Admin: 02/28/19 17:35 Dose: 4 mg Phytonadione (Vitamin K) 100 mcg PO DAILY [facility] Last Admin: 03/01/19 08:19 Dose: 100 mcg Polysaccharide Iron Complex (Ferrex 150) 150 mg PO DAILY [facility] Last Admin: 03/01/19 08:19 Dose: 150 mg Pramipexole Dihydrochloride (Mirapex) 0.5 mg PO BEDTIME [facility] Last Admin: 02/28/19 21:02 Dose: 0.5 mg Discontinued Medications Diatrizoate Meglum/Diatrizoate Sod (Gastrografin 37%) 120 ml PO ONETIME ONE Stop: 02/28/19 18:17 Last Admin: 02/28/19 18:29 Dose: 30 ml Esomeprazole Magnesium (Nexium) 40 mg PO BIDAC [facility] Last Admin: 03/01/19 06:39 Dose: Not Given Morphine Sulfate (Morphine) 2 mg IVPUSH ONETIME ONE Stop: 02/28/19 20:53 Last Admin: 02/28/19 21:01 Dose: 2 mg Non-Formulary Medication (Melatonin/Pyridoxine Hcl (B6) [Melatonin 3 Mg Tablet] ) 3 mg PO BEDTIME [facility] - Problem List Review Problem List Initiated/Reviewed/Updated: Yes - Plan Plan:: Patient presents to clinic today with concerns about a severe pain in her right lower quadrant. Patient's recently after 50 years of marriage. Patient states she was lying in bed early this morning she rolled over and all of a sudden she had a sharp tearing pain to her right lower abdomen. She states that it hurts really bad. It hurts to walk, it hurts to move. Even hurts to take a deep breath. Hurts to push on the area. She denies any diarrhea or constipation. She denies any urinary symptoms. She states the pain is really severe. She denies any fever or chills. CBC, CMP and urinalysis upon admission. CT scan of the abdomen and pelvis with contrast. Toradol 30 mg given here in clinic per nursing staff intramuscularly. Abdominal binder placed patient's lower abdomen help with comfort to ride to hospital.
[2019-03-01] MEDS ORDERED: Sodium Chloride 0.9% 10 ML Syringe FLUSH PRN (10:34)
--- NOTE | 2019-03-01 11:14 | PCM.DCSUM1 ---
Discharge Summary - Hospital Course Diagnosis: Stroke: No - Discharge Data Discharge Date: 03/01/19 Discharge Disposition: DC/Tfer to Acute Hospital 02 Condition: Fair - Patient Instructions Diet: NPO - Discharge Plan *PRESCRIPTION DRUG MONITORING PROGRAM REVIEWED*: Not Applicable *COPY OF PRESCRIPTION DRUG MONITORING REPORT IN PATIENT MU: Not Applicable Home Medications: Home Meds Diltiazem HCl [Diltiazem 24Hr ER] 120 mg PO DAILY 11/10/13 [History] Escitalopram [Lexapro] 10 mg PO DAILY 11/10/13 [History] Esomeprazole [NexIUM] 40 mg PO BIDAC 04/21/17 [History] Iron Polysaccharide Complex [Ferric X-150] 150 mg PO DAILY 04/21/17 [History] Pramipexole Di-HCl [Pramipexole Dihydrochloride] 0.5 mg PO BEDTIME 04/21/17 [ History] Pravastatin [Pravachol] 40 mg PO BEDTIME 04/21/17 [History] Warfarin [Coumadin] 5 mg PO MOWEFR 09/30/17 [History] Cyanocobalamin (Vitamin B-12) [Cyanocobalamin Injection] 1,000 mcg IM Q30D 08/28 [History] Hydrocodone/Acetaminophen [Hydrocodon-Acetaminophen 5-325] 1 tab PO BID PRN [History] Melatonin/Pyridoxine HCl (B6) [Melatonin 3 mg Tablet] 3 mg PO BEDTIME 08/28/18 [ History] Metoprolol Succinate [Toprol XL] 25 mg PO DAILY 08/28/18 [History] glipiZIDE [Glipizide Xl] 5 mg PO WITHBREAKFAST 08/28/18 [History] hydroCHLOROthiazide [Hydrochlorothiazide] 25 mg PO DAILY 08/28/18 [History] Warfarin [Coumadin] 7.5 mg PO SUTUTHSA 08/29/18 [History] metFORMIN HCl [Metformin HCl] 500 mg PO BIDMEALS 08/29/18 [History] busPIRone [Buspar] 15 mg PO BID 10/14/18 [History] Cilostazol 100 mg PO BID 12/10/18 [History] Acetaminophen [Tylenol] 650 mg PO Q4H PRN 02/28/19 [History] Donepezil [Aricept] 5 mg PO BEDTIME 02/28/19 [History] Loratadine 10 mg PO DAILY PRN 02/28/19 [History] Phytonadione [Vitamin K] 100 mcg PO DAILY 02/28/19 [History] Vit A/Vit C/Vit E/Zinc/Copper [Preservision Areds Softgel] 1 cap PO BID [History] - Discharge Summary/Plan Comment DC Time >30 min.: Yes Discharge Summary/Plan Comment: Final dx: Large abdominal wall mass History summary 74-year-old female Patient was seen yesterday [facility] due to severe pain in her right lower abdominal quadrant. Patient states she was lying in bed early the morning of evaluation she rolled over and experienced 10 out of 10 sudden sharp tearing pain to her right lower abdomen or pain on any movement and walking and even taken at that deep breath. She denies any diarrhea or constipation. She denies any urinary symptoms. She denies any fever or chills. she recently was placed on Bactrim and status post IND of a vaginal cyst. Her INR subsequently supratherapeutic at 4.6 however is down to 1.9 [address] scan 16 cm x 6.4 x 6 cm ventral abdominal wall mass in rectal sheath midline possible hematoma. Hospital course patient's hemoglobin dropped from 9.0-7.7 overnight however hemodynamically stable. Started transfusing 2 units of packed red blood cells this morning, NPO and consulted with surgeon in [facility] for transport for possible surgical evacuation. disposition transfer to [facility], blood transfusion in route. Nothing by mouth - General Info Date of Service: 03/01/19 Functional Status: Reports: Tolerating Diet, Urinating. Denies: Pain Controlled , Ambulating, New Symptoms - Review of Systems General: Denies: Fever, Weakness, Fatigue, Chills, Night Sweats HEENT: Reports: No Symptoms Pulmonary: Reports: No Symptoms Cardiovascular: Reports: No Symptoms Gastrointestinal: Reports: Abdominal Pain. Denies: Constipation, Decreased Appetite Genitourinary: Reports: No Symptoms Musculoskeletal: Reports: No Symptoms Skin: Denies: Pallor Neurological: Denies: Confusion, Dizziness Psychiatric: Reports: No Symptoms - Patient Data Vitals - Most Recent: Last Vital Signs Temp 97.9 F 03/01/19 06:50 Pulse 76 03/01/19 08:19 Resp 20 03/01/19 06:50 BP 122/59 L 03/01/19 08:19 Pulse Ox 95 03/01/19 07:30 Weight - Most Recent: 176 lb 12.8 oz I&O - Last 24 hours: Intake & Output 02/28/19 03/01/19 03/01/19 22:59 06:59 14:59 Intake Total 461 501 Output Total 200 600 Balance 261 -99 Lab Results - Last 24 hrs: Laboratory Results - last 24 hr 02/28/19 02/28/19 02/28/19 Range/Units 17:20 17:20 18:40 WBC 9.51 (5.00-10.00) 10^3/uL RBC 3.48 L (3.80-5.50) 10^6/uL Hgb 9.0 L (12.0-16.0) g/dL Hct 28.8 L (37.0-47.0) % MCV 82.8 D (82.0-92.0) fL MCH 25.9 L (27.0-31.0) pg MCHC 31.3 L (32.0-36.0) g/dL RDW 18.4 H (11.5-14.5) % Plt Count 562 H (150-400) 10^3/uL MPV 8.9 (7.4-10.4) fL Immature Gran % (Auto) 0.7 (0.0-5.0) % Neut % (Auto) 69.2 (50.0-70.0) % Lymph % (Auto) 17.4 L (20.0-40.0) % Baldwin % (Auto) 9.3 H (2.0-8.0) % Eos % (Auto) 2.5 (1.0-3.0) % Baso % (Auto) 0.9 (0.0-1.0) % Immature Gran # (Auto) 0.07 (0.00-0.50) 10^3/uL Neut # (Auto) 6.58 (2.50-7.00) 10^3/uL Lymph # (Auto) 1.65 (1.00-4.00) 10^3/uL Baldwin # (Auto) 0.88 H (0.10-0.80) 10^3/uL Eos # (Auto) 0.24 (0.10-0.30) 10^3/uL Baso # (Auto) 0.09 (0.00-0.10) 10^3/uL PT INR (0.9-1.1) Sodium 135 L (136-145) mmol/L Potassium 5.2 (3.3-5.3) mmol/L Chloride 99 (98-115) mmol/L Carbon Dioxide 22.5 (21.0-32.0) mmol/L Anion Gap 18.7 H (5-15) mmol/L BUN 32 H (6-25) mg/dL Creatinine 1.58 H (0.51-1.17) mg/dL Est Cr Clr Drug Dosing 28.36 mL/min Estimated GFR (MDRD) 32 mL/min Glucose 127 H (75 - 99) mg/dL Calcium 8.6 L (8.7-10.3) mg/dL Total Bilirubin 0.2 (0.2-1.0) mg/dL AST 19 (15-37) U/L ALT 15 (12-78) U/L Alkaline Phosphatase 79 (46-116) IU/L Total Protein 6.9 (6.4-8.2) g/dL Albumin 3.33 (3.00-4.80) g/dL Specimen Type Urinvoid Urine Color Yellow (YELLOW) Urine Appearance Slightly cloudy H (CLEAR) Urine pH 5.5 (5.0-9.0) Ur Specific [place] <= 1.005 (1.005-1.030) Urine Protein 30 H (NEGATIVE) mg/dL Urine Glucose (UA) Negative (NEGATIVE) mg/dL Urine Ketones Negative (NEGATIVE) mg/dL Urine Occult Blood Trace-intact H (NEGATIVE) Urine Nitrite Negative (NEGATIVE) Urine Bilirubin Negative (NEGATIVE) Urine Urobilinogen 0.2 (0.2-1.0) E.U./dL Ur Leukocyte Esterase Negative (NEGATIVE) Urine RBC 0-5 (0-5) /HPF Urine WBC 0-5 (0-5) /HPF Ur Epithelial Cells Few /LPF Urine Bacteria Few (NONE TO FEW) /HPF 02/28/19 03/01/19 03/01/19 Range/Units 20:50 07:00 07:00 WBC 10.33 H (5.00-10.00) 10^3/uL RBC 2.93 L (3.80-5.50) 10^6/uL Hgb 7.7 L (12.0-16.0) g/dL Hct 24.7 L (37.0-47.0) % MCV 84.3 (82.0-92.0) fL MCH 26.3 L (27.0-31.0) pg MCHC 31.2 L (32.0-36.0) g/dL RDW 18.4 H (11.5-14.5) % Plt Count 481 H D (150-400) 10^3/uL MPV 9.1 (7.4-10.4) fL Immature Gran % (Auto) 0.8 (0.0-5.0) % Neut % (Auto) 58.4 (50.0-70.0) % Lymph % (Auto) 21.8 (20.0-40.0) % Baldwin % (Auto) 15.6 H (2.0-8.0) % Eos % (Auto) 2.7 (1.0-3.0) % Baso % (Auto) 0.7 (0.0-1.0) % Immature Gran # (Auto) 0.08 (0.00-0.50) 10^3/uL Neut # (Auto) 6.04 (2.50-7.00) 10^3/uL Lymph # (Auto) 2.25 (1.00-4.00) 10^3/uL Baldwin # (Auto) 1.61 H (0.10-0.80) 10^3/uL Eos # (Auto) 0.28 (0.10-0.30) 10^3/uL Baso # (Auto) 0.07 (0.00-0.10) 10^3/uL PT TNP 19.5 H D INR 2.6 H 1.9 H (0.9-1.1) Sodium (136-145) mmol/L Potassium (3.3-5.3) mmol/L Chloride (98-115) mmol/L Carbon Dioxide (21.0-32.0) mmol/L Anion Gap (5-15) mmol/L BUN (6-25) mg/dL Creatinine (0.51-1.17) mg/dL Est Cr Clr Drug Dosing mL/min Estimated GFR (MDRD) mL/min Glucose (75 - 99) mg/dL Calcium (8.7-10.3) mg/dL Total Bilirubin (0.2-1.0) mg/dL AST (15-37) U/L ALT (12-78) U/L Alkaline Phosphatase (46-116) IU/L Total Protein (6.4-8.2) g/dL Albumin (3.00-4.80) g/dL Specimen Type Urine Color (YELLOW) Urine Appearance (CLEAR) Urine pH (5.0-9.0) Ur Specific [place] (1.005-1.030) Urine Protein (NEGATIVE) mg/dL Urine Glucose (UA) (NEGATIVE) mg/dL Urine Ketones (NEGATIVE) mg/dL Urine Occult Blood (NEGATIVE) Urine Nitrite (NEGATIVE) Urine Bilirubin (NEGATIVE) Urine Urobilinogen (0.2-1.0) E.U./dL Ur Leukocyte Esterase (NEGATIVE) Urine RBC (0-5) /HPF Urine WBC (0-5) /HPF Ur Epithelial Cells /LPF Urine Bacteria (NONE TO FEW) /HPF 03/01/19 Range/Units 07:00 WBC (5.00-10.00) 10^3/uL RBC (3.80-5.50) 10^6/uL Hgb (12.0-16.0) g/dL Hct (37.0-47.0) % MCV (82.0-92.0) fL MCH (27.0-31.0) pg MCHC (32.0-36.0) g/dL RDW (11.5-14.5) % Plt Count (150-400) 10^3/uL MPV (7.4-10.4) fL Immature Gran % (Auto) (0.0-5.0) % Neut % (Auto) (50.0-70.0) % Lymph % (Auto) (20.0-40.0) % Baldwin % (Auto) (2.0-8.0) % Eos % (Auto) (1.0-3.0) % Baso % (Auto) (0.0-1.0) % Immature Gran # (Auto) (0.00-0.50) 10^3/uL Neut # (Auto) (2.50-7.00) 10^3/uL Lymph # (Auto) (1.00-4.00) 10^3/uL Baldwin # (Auto) (0.10-0.80) 10^3/uL Eos # (Auto) (0.10-0.30) 10^3/uL Baso # (Auto) (0.00-0.10) 10^3/uL PT INR (0.9-1.1) Sodium 135 L (136-145) mmol/L Potassium 5.2 (3.3-5.3) mmol/L Chloride 102 (98-115) mmol/L Carbon Dioxide 24.2 (21.0-32.0) mmol/L Anion Gap 14.0 (5-15) mmol/L BUN 34 H (6-25) mg/dL Creatinine 1.62 H (0.51-1.17) mg/dL Est Cr Clr Drug Dosing 27.66 mL/min Estimated GFR (MDRD) 31 mL/min Glucose 92 (75 - 99) mg/dL Calcium 7.9 L (8.7-10.3) mg/dL Total Bilirubin 0.3 (0.2-1.0) mg/dL AST 17 (15-37) U/L ALT 13 (12-78) U/L Alkaline Phosphatase 69 (46-116) IU/L Total Protein 5.6 L (6.4-8.2) g/dL Albumin 2.63 L (3.00-4.80) g/dL Specimen Type Urine Color (YELLOW) Urine Appearance (CLEAR) Urine pH (5.0-9.0) Ur Specific [place] (1.005-1.030) Urine Protein (NEGATIVE) mg/dL Urine Glucose (UA) (NEGATIVE) mg/dL Urine Ketones (NEGATIVE) mg/dL Urine Occult Blood (NEGATIVE) Urine Nitrite (NEGATIVE) Urine Bilirubin (NEGATIVE) Urine Urobilinogen (0.2-1.0) E.U./dL Ur Leukocyte Esterase (NEGATIVE) Urine RBC (0-5) /HPF Urine WBC (0-5) /HPF Ur Epithelial Cells /LPF Urine Bacteria (NONE TO FEW) /HPF Med Orders - Current: Current Medications Acetaminophen (Tylenol) 650 mg PO Q4H PRN PRN Reason: Pain Hydrocodone Bitart/Acetaminophen ([place] 325-5 Mg) 1 tab PO BID PRN PRN Reason: Pain Last Admin: 03/01/19 00:37 Dose: 1 tab Buspirone HCl (Buspar) 15 mg PO BID [facility] Last Admin: 03/01/19 08:19 Dose: 15 mg Diltiazem HCl (Cardizem Cd) 120 mg PO DAILY [facility] Last Admin: 03/01/19 08:19 Dose: 120 mg Donepezil HCl (Aricept) 5 mg PO BEDTIME [facility] Last Admin: 02/28/19 21:01 Dose: 5 mg Escitalopram Oxalate (Lexapro) 10 mg PO DAILY [facility] Last Admin: 03/01/19 08:19 Dose: 10 mg Glipizide (Glucotrol Xl) 5 mg PO WITHBREAKFAST [facility] Last Admin: 03/01/19 08:19 Dose: 5 mg Sodium Chloride (Normal Saline) 1,000 mls @ 50 mls/hr IV ASDIRECTED [facility] Last Admin: 02/28/19 17:21 Dose: 50 mls/hr Melatonin (Melatonin) 3 mg PO BEDTIME PRN PRN Reason: Insomnia Last Admin: 02/28/19 21:38 Dose: 3 mg Metformin HCl (Glucophage) 500 mg PO BIDMEALS [facility] Last Admin: 03/01/19 08:19 Dose: 500 mg Metoprolol Succinate (Toprol Xl) 25 mg PO DAILY [facility] Last Admin: 03/01/19 08:19 Dose: 25 mg Morphine Sulfate (Morphine) 2 mg IVPUSH Q4H PRN PRN Reason: Pain (severe 7-10) Last Admin: 03/01/19 10:00 Dose: 2 mg Non-Formulary Medication (Cilostazol [Cilostazol]) 100 mg PO BID [facility] Omeprazole (Omeprazole) 40 mg PO BIDAC [facility] Ondansetron HCl (Zofran) 4 mg IV Q4H PRN PRN Reason: Nausea/Vomiting Last Admin: 02/28/19 17:35 Dose: 4 mg Phytonadione (Vitamin K) 100 mcg PO DAILY [facility] Last Admin: 03/01/19 08:19 Dose: 100 mcg Polysaccharide Iron Complex (Ferrex 150) 150 mg PO DAILY [facility] Last Admin: 03/01/19 08:19 Dose: 150 mg Pramipexole Dihydrochloride (Mirapex) 0.5 mg PO BEDTIME [facility] Last Admin: 02/28/19 21:02 Dose: 0.5 mg Sodium Chloride (Saline Flush) 10 ml FLUSH Q8HR PRN PRN Reason: Keep Vein Open Discontinued Medications Diatrizoate Meglum/Diatrizoate Sod (Gastrografin 37%) 120 ml PO ONETIME ONE Stop: 02/28/19 18:17 Last Admin: 02/28/19 18:29 Dose: 30 ml Esomeprazole Magnesium (Nexium) 40 mg PO BIDAC [facility] Last Admin: 03/01/19 06:39 Dose: Not Given Morphine Sulfate (Morphine) 2 mg IVPUSH ONETIME ONE Stop: 02/28/19 20:53 Last Admin: 02/28/19 21:01 Dose: 2 mg Non-Formulary Medication (Melatonin/Pyridoxine Hcl (B6) [Melatonin 3 Mg Tablet] ) 3 mg PO BEDTIME [facility] - Exam Quality Assessment: Denies: Supplemental Oxygen General: Reports: Alert, Oriented, Cooperative, No Acute Distress Neck: Reports: Supple Lungs: Reports: Clear to Auscultation, Normal Respiratory Effort Cardiovascular: Reports: Irregular Rhythm GI/Abdominal Exam: Soft, No Distention, Guarding, Tender (tender to RLQ). No: Distended, Rigid, Rebound, Abnormal Bowel Sounds (Female) Exam: Deferred Rectal (Female) Exam: Normal Exam, Normal Rectal Tone Back Exam: Denies: CVA Tenderness (L), CVA Tenderness (R) Extremities: No Pedal Edema, Normal Capillary Refill. No: Pedal Edema Neurological: Reports: No New Focal Deficit Psy/Mental Status: Reports: Alert, Normal Affect, Normal Mood
[2019-03-01] MEDS: Sodium Chloride 0.9% 1,000 ML IV SCH (11:49)
[2019-03-01 12:24] VITALS: BP 122/64
[2019-03-01] MEDS ORDERED: Omeprazole 20 MG Cap.CR PO SCH (17:30)
[2019-03-01] MEDS ORDERED: Non-Formulary Medication 1 Each (Melatonin/Pyridoxine Hcl (B6) [Melatonin 3 Mg Tablet] 3 M PO SCH (21:00)
== END 2019-03-01 13:20 | DRG 605 ==
LOC: KA.CT 16:38 → KA.MS 16:41
PROVIDERS: ADMIT Physician Assistant; ATTEND Family Medicine
PROC: 30233N1 Transfusion of Nonautologous Red Blood Cells into Peripheral Vein, Percutaneous Approach (ICD-10-PCS; principal; 2019-03-01)
DX: S30.1XXA Contusion of abdominal wall, initial encounter (principal); F41.9 Anxiety disorder, unspecified; K21.9 Gastro-esophageal reflux disease without esophagitis; E11.51 Type 2 diabetes mellitus with diabetic peripheral angiopathy without gangrene; I48.2 Chronic atrial fibrillation; R19.00 Intra-abdominal and pelvic swelling, mass and lump, unspecified site; I10 Essential (primary) hypertension; D64.9 Anemia, unspecified; G25.81 Restless legs syndrome; W06.XXXA Fall from bed, initial encounter; E78.2 Mixed hyperlipidemia; G89.4 Chronic pain syndrome; E53.8 Deficiency of other specified B group vitamins; Z91.013 Allergy to seafood; Z88.8 Allergy status to other drugs, medicaments and biological substances; Z98.84 Bariatric surgery status; Z91.018 Allergy to other foods; Z98.49 Cataract extraction status, unspecified eye; Z90.49 Acquired absence of other specified parts of digestive tract; Z90.710 Acquired absence of both cervix and uterus; Z87.891 Personal history of nicotine dependence; Z79.84 Long term (current) use of oral hypoglycemic drugs; Z79.01 Long term (current) use of anticoagulants
CPT/HCPCS: 36415; 36416; 36430; 74176; 80053; 81001; 85025; 85610; 86850; 86900; 86901; 86920; 86922; A9270-GY; J2270; J2405; J7030; P9016; Q9963

== ENCOUNTER 2019-03-04 08:58 | Emergency (ER) | payer MEDICARE, MEDICAID ==
[2019-03-04] MEDS ORDERED: Morphine 2 MG/ML Syringe IVPUSH ONE (09:22)
[2019-03-04 09:58] VITALS: BP 136/47
--- NOTE | 2019-03-04 10:15 | EDM.PDOC ---
ED HPI GENERAL MEDICAL PROBLEM - General Chief Complaint: Abdominal Pain Stated Complaint: ABD PAIN--A SORE ON IT Time Seen by Provider: 03/04/19 09:20 Source of Information: Reports: Patient, Provider History Limitations: Reports: No Limitations - History of Present Illness INITIAL COMMENTS - FREE TEXT/NARRATIVE: Every 4-year-old female was brought in from the [facility] for evaluation of abdominal pain. Patient had supratherapeutic INR at 4.85 on Wednesday , February 27. She developed abdominal pain and swelling. She had a CT scan that showed a 16 x 6.4 x 6 cm ventral abdominal wall mass right the midline centered in the rectus sheath most consistent with a hematoma. She had hemoglobin of 9 and dropped down to 7.7 the following day. She was transferred up to [facility] for surgical consultation for abdominal bleed. She was transfused 2 units of packed red blood cells and her hemoglobin was 9. She was transferred back the following day to the [facility]. Care provider at the [facility] noticed that she had swelling and ecchymosis and tenderness to the right lower quadrant. She is brought in for further evaluation. Patient's pain was stated to be a 10 out of 10, patient though when seen is very conversive and in no acute distress she reports that she is lying still and not moving her pain is very well tolerated. She states with movement it does increase. She does have hydrocodone ordered but was only given 1 this morning and was given Tylenol in the evening. She has been having bowel movements and been given stool softeners so she is not straining. Her hemoglobin today is 8.9 and stable. Her INR is subtherapeutic at 1.1. She is not running any fever or chills her vital signs have been stable. She is not tachycardic. She denies any chest pain or shortness of breath. She denies any dyspnea. 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(s) right lower abdomen Pain Score (Numeric/FACES): 10 - Related Data Allergies Allergy/AdvReac Type Severity Reaction Status Date / Time atorvastatin calcium Allergy Severe Nausea Verified 03/04/19 09:53 [From Lipitor] iodine Allergy Rash Verified 03/04/19 09:53 lisinopril Allergy Cough Verified 03/04/19 09:53 strawberry [[place]] Allergy Hives Verified 03/04/19 09:53 fish Allergy Severe Airway Uncoded 03/04/19 09:53 Tightness Home Meds: Home Meds Diltiazem HCl [Diltiazem 24Hr ER] 120 mg PO DAILY 11/10/13 [History] Escitalopram [Lexapro] 10 mg PO DAILY 11/10/13 [History] Esomeprazole [NexIUM] 40 mg PO BIDAC 04/21/17 [History] Iron Polysaccharide Complex [Ferric X-150] 150 mg PO DAILY 04/21/17 [History] Pramipexole Di-HCl [Pramipexole Dihydrochloride] 0.5 mg PO BEDTIME 04/21/17 [ History] Pravastatin [Pravachol] 40 mg PO BEDTIME 04/21/17 [History] Warfarin [Coumadin] 5 mg PO MOWEFR 09/30/17 [History] Cyanocobalamin (Vitamin B-12) [Cyanocobalamin Injection] 1,000 mcg IM Q30D 08/28 [History] Hydrocodone/Acetaminophen [Hydrocodon-Acetaminophen 5-325] 1 tab PO BID PRN [History] Melatonin/Pyridoxine HCl (B6) [Melatonin 3 mg Tablet] 3 mg PO BEDTIME 08/28/18 [ History] Metoprolol Succinate [Toprol XL] 25 mg PO DAILY 08/28/18 [History] glipiZIDE [Glipizide Xl] 5 mg PO WITHBREAKFAST 08/28/18 [History] hydroCHLOROthiazide [Hydrochlorothiazide] 25 mg PO DAILY 08/28/18 [History] Warfarin [Coumadin] 7.5 mg PO SUTUTHSA 08/29/18 [History] metFORMIN HCl [Metformin HCl] 500 mg PO BIDMEALS 08/29/18 [History] busPIRone [Buspar] 15 mg PO BID 10/14/18 [History] Cilostazol 100 mg PO BID 12/10/18 [History] Acetaminophen [Tylenol] 650 mg PO Q4H PRN 02/28/19 [History] Donepezil [Aricept] 5 mg PO BEDTIME 02/28/19 [History] Loratadine 10 mg PO DAILY PRN 02/28/19 [History] Phytonadione [Vitamin K] 100 mcg PO DAILY 02/28/19 [History] Vit A/Vit C/Vit E/Zinc/Copper [Preservision Areds Softgel] 1 cap PO BID [History] Past Medical History HEENT History: Reports: Cataract, Hard of Hearing, Impaired Vision Other HEENT History: hearing aids Cardiovascular History: Reports: Afib, High Cholesterol, Hypertension, Other ( See Below) Other Cardiovascular History: Varicose veins. Respiratory History: Reports: Other (See Below) Other Respiratory History: bronchitis Gastrointestinal History: Reports: Other (See Below) Other Gastrointestinal History: Dysphagia. 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 Rotator cuff tear and repair of both shoulders. Restless leg syndrome. Psychiatric History: Reports: Anxiety, Depression Endocrine/Metabolic History: Reports: Diabetes, Type II, Other (See Below) Other Endocrine/Metabolic History: rarely checks blood sugar Hematologic History: Reports: Anemia, Anticoagulation Therapy, B12 Deficiency, Iron Deficiency Oncologic (Cancer) History: Reports: None - Infectious Disease History Infectious Disease History: Reports: Chicken Pox, Influenza, Measles, Mumps, Pertussis (Whooping Cough) - Past Surgical History Head Surgeries/Procedures: Reports: None HEENT Surgical History: Reports: Cataract Surgery Respiratory Surgical History: Reports: None GI Surgical History: Reports: Bariatric Procedure, Cholecystectomy, Colonoscopy , EGD Other GI Surgeries/Procedures: Part of pancreas removed and spleenectomy. Female Surgical History: Reports: Breast Biopsy, Hysterectomy, Other (See Below) Other Female Surgeries/Procedures: Breast lumpectomy. Musculoskeletal Surgical History: Reports: Shoulder Surgery Oncologic Surgical History: Reports: Lumpectomy Social & Family History - Family History Family Medical History: Noncontributory : Reports: Cystic Kidney Disease Endocrine/Metabolic: Reports: Diabetes, type II Oncologic: Reports: Lung - Tobacco Use Smoking Status *Q: Unknown Ever Smoked - Caffeine Use Caffeine Use: Reports: Coffee - Recreational Drug Use Recreational Drug Use: No ED ROS GENERAL - Review of Systems Review Of Systems: ROS reveals no pertinent complaints other than HPI. ED EXAM, GI/ABD - Physical Exam Exam: See Below Exam Limited By: No Limitations General Appearance: Alert, WD/WN, No Apparent Distress Eyes: Bilateral: Normal Appearance, EOMI Ears: Hearing Loss Nose: Normal Inspection, No Blood Throat/Mouth: Normal Inspection, Normal Voice, No Airway Compromise Head: Atraumatic, Normocephalic Neck: Normal Inspection, Supple, Non-Tender, Full Range of Motion. No: Lymphadenopathy (L), Lymphadenopathy (R) Respiratory/Chest: No Respiratory Distress, Lungs Clear, Normal Breath Sounds, No Accessory Muscle Use, Chest Non-Tender Cardiovascular: Normal Peripheral Pulses, Regular Rate, Rhythm, No Edema, No JVD GI/Abdominal Exam: Soft, No Distention, No Abnormal Bruit, No Mass, Tender, Other (There is a hematoma over the right lower quadrant. This is mildly tender to touch. There is no signs of erythema or active infection. Ecchymosis is overlying the area there is mild firmness to the area but per the PA that evaluated and saw her today states that this is gone down significantly.) Back Exam: Normal Inspection Extremities: Normal Inspection, Non-Tender Neurological: Alert, Oriented, Normal Cognition, No Motor/Sensory Deficits Psychiatric: Normal Affect, Normal Mood Skin Exam: Warm, Dry, Intact, Normal Color, No Rash, Ecchymosis (abdomen RLQ, side) Lymphatic: No Adenopathy Course - Vital Signs Last Recorded V/S: Last Vital Signs Temp 96.8 F 03/04/19 09:15 Pulse 87 03/04/19 09:15 Resp 16 03/04/19 09:57 BP 136/47 L 03/04/19 09:57 Pulse Ox 90 L 03/04/19 09:57 - Orders/Labs/Meds Labs: Laboratory Tests 03/04/19 03/04/19 03/04/19 Range/Units 09:30 09:30 09:30 WBC 14.07 H (5.00-10.00) 10^3/uL RBC 3.29 L (3.80-5.50) 10^6/uL Hgb 8.9 L (12.0-16.0) g/dL Hct 28.4 L (37.0-47.0) % MCV 86.3 (82.0-92.0) fL MCH 27.1 (27.0-31.0) pg MCHC 31.3 L (32.0-36.0) g/dL RDW 18.2 H (11.5-14.5) % Plt Count 549 H (150-400) 10^3/uL MPV 9.2 (7.4-10.4) fL Immature Gran % (Auto) 0.5 (0.0-5.0) % Neut % (Auto) 85.8 H (50.0-70.0) % Lymph % (Auto) 7.5 L (20.0-40.0) % [place] % (Auto) 5.6 (2.0-8.0) % Eos % (Auto) 0.4 L (1.0-3.0) % Baso % (Auto) 0.2 (0.0-1.0) % Immature Gran # (Auto) 0.07 (0.00-0.50) 10^3/uL Neut # (Auto) 12.07 H (2.50-7.00) 10^3/uL Lymph # (Auto) 1.06 (1.00-4.00) 10^3/uL [place] # (Auto) 0.79 (0.10-0.80) 10^3/uL Eos # (Auto) 0.05 L (0.10-0.30) 10^3/uL Baso # (Auto) 0.03 (0.00-0.10) 10^3/uL ESR (0-20) mm/hr PT 11.1 D (8.9-11.4) SEC INR 1.1 (0.9-1.1) APTT 31.6 (23.1-31.9) SEC C-Reactive Protein 19.9 H (0.0-0.9) mg/dL Specimen Type Urine Color (YELLOW) Urine Appearance (CLEAR) Urine pH (5.0-9.0) Ur Specific [place] (1.005-1.030) Urine Protein (NEGATIVE) mg/dL Urine Glucose (UA) (NEGATIVE) mg/dL Urine Ketones (NEGATIVE) mg/dL Urine Occult Blood (NEGATIVE) Urine Nitrite (NEGATIVE) Urine Bilirubin (NEGATIVE) Urine Urobilinogen (0.2-1.0) E.U./dL Ur Leukocyte Esterase (NEGATIVE) Urine RBC (0-5) /HPF Urine WBC (0-5) /HPF Ur Epithelial Cells /LPF Amorphous Sediment (0/HPF) /HPF Urine Bacteria (NONE TO FEW) /HPF Urine Mucus (NEGATIVE) /LPF 03/04/19 03/04/19 Range/Units 09:30 11:00 WBC (5.00-10.00) 10^3/uL RBC (3.80-5.50) 10^6/uL Hgb (12.0-16.0) g/dL Hct (37.0-47.0) % MCV (82.0-92.0) fL MCH (27.0-31.0) pg MCHC (32.0-36.0) g/dL RDW (11.5-14.5) % Plt Count (150-400) 10^3/uL MPV (7.4-10.4) fL Immature Gran % (Auto) (0.0-5.0) % Neut % (Auto) (50.0-70.0) % Lymph % (Auto) (20.0-40.0) % [place] % (Auto) (2.0-8.0) % Eos % (Auto) (1.0-3.0) % Baso % (Auto) (0.0-1.0) % Immature Gran # (Auto) (0.00-0.50) 10^3/uL Neut # (Auto) (2.50-7.00) 10^3/uL Lymph # (Auto) (1.00-4.00) 10^3/uL [place] # (Auto) (0.10-0.80) 10^3/uL Eos # (Auto) (0.10-0.30) 10^3/uL Baso # (Auto) (0.00-0.10) 10^3/uL ESR 37 H (0-20) mm/hr PT (8.9-11.4) SEC INR (0.9-1.1) APTT (23.1-31.9) SEC C-Reactive Protein (0.0-0.9) mg/dL Specimen Type Urincc Urine Color Yellow (YELLOW) Urine Appearance Clear (CLEAR) Urine pH 5.0 (5.0-9.0) Ur Specific [place] 1.020 (1.005-1.030) Urine Protein 30 H (NEGATIVE) mg/dL Urine Glucose (UA) Negative (NEGATIVE) mg/dL Urine Ketones Negative (NEGATIVE) mg/dL Urine Occult Blood Trace-intact H (NEGATIVE) Urine Nitrite Negative (NEGATIVE) Urine Bilirubin Negative (NEGATIVE) Urine Urobilinogen 0.2 (0.2-1.0) E.U./dL Ur Leukocyte Esterase Negative (NEGATIVE) Urine RBC 0-5 (0-5) /HPF Urine WBC 0-5 (0-5) /HPF Ur Epithelial Cells Many H /LPF Amorphous Sediment Moderate H (0/HPF) /HPF Urine Bacteria Rare (NONE TO FEW) /HPF Urine Mucus Few H (NEGATIVE) /LPF Meds: Medications Discontinued Medications Generic Name Dose Route Start Last Admin Trade Name Adrianna PRN Reason Stop Dose Admin Morphine Sulfate 2 mg 03/04/19 09:22 03/04/19 09:36 Morphine IVPUSH 03/04/19 09:23 2 mg ONETIME ONE Administration - Re-Assessments/Exams Free Text/Narrative Re-Assessment/Exam: 03/04/19 11:29 Patient has been calm and collected reports that her pain is been well controlled. She understands the findings that we've explained to her today. She did feel that the 2 mg of morphine she received was helpful. Departure - Departure Time of Disposition: 11:41 Disposition: DC/Tfer to [facility] Condition: Good Clinical Impression: Adequate anticoagulation on anticoagulant therapy, Anemia associated with acute blood loss Abdominal wall hematoma Qualifiers: Encounter type: subsequent encounter Qualified Code(s): S30.1XXD - Contusion of abdominal wall, subsequent encounter - Discharge Information Instructions: Abdominal Pain, Adult, [id number], Hematoma, [id number], Retroperitoneal Bleeding Referrals: Elvira Young MD [Primary Care Provider] - Forms: ED Department Discharge Additional Instructions: 1. Continue with observation at this time. Your hemoglobin is stable at 8.9. Would recheck H&H on Wednesday. 2. Urine anticoagulation therapy, your INR today is 1.1. Your scheduled to have 7.5 mg of Coumadin today and Wednesday. INR is to be checked on Wednesday. 3. You have a hematoma in your rectus abdominal which causes pain, bloating, discomfort. The hematoma shows ecchymosis over the side of your right quadrant. Your hemoglobin is been stable which indicates you're not currently bleeding. Would recommend continued observation at this time. 4. You have increase white blood cell count and CRP which could be reactive to your recent bleed. I would recommend repeating CBC on Wednesday. Your urine is negative for UTI. 5. I recommend rest over the weekend. Continue oral hydration. And stool softeners to prevent straining with bowel movements. 6. Follow-up appointment is scheduled with Joseph GUSTAFSON on Wednesday. - Assessment/Plan Assessment:: 1. Anemia secondary to rectus abdominal lobe bleed and hematoma. Hemoglobin is stable at 8.9. 2. Leukocytosis, possibly due to recent trauma and pain. Observation with repeat CBC on Wednesday along with an INR. 3. Anticoagulation therapy subtherapeutic. INR 1.1. Patient received 5 mg of Coumadin on Wednesday, 7.5 mg today, 7.5 mg scheduled for Wednesday. INR will be checked on Wednesday. 4. Abdominal pain. Patient has hydrocodone 5/[address] Recommend one hydrocodone for pain scale 1-5, patient may have to hydrocodone if this pain is from 6-10. Plan: 1. Continue with observation at this time. Your hemoglobin is stable at 8.9. Would recheck H&H on Wednesday. 2. Urine anticoagulation therapy, your INR today is 1.1. Your scheduled to have 7.5 mg of Coumadin today and Wednesday. INR is to be checked on Wednesday. 3. You have a hematoma in your rectus abdominal which causes pain, bloating, discomfort. The hematoma shows ecchymosis over the side of your right quadrant. Your hemoglobin is been stable which indicates you're not currently bleeding. Would recommend continued observation at this time. 4. You have increase white blood cell count and CRP which could be reactive to your recent bleed. I would recommend repeating CBC on Wednesday. Your urine is negative for UTI. 5. I recommend rest over the weekend. Continue oral hydration. And stool softeners to prevent straining with bowel movements. 6. Follow-up appointment is scheduled with Joseph GUSTAFSON on Wednesday.
== END 2019-03-04 11:45 ==
LOC: KA.ED 08:58
DX: R58 Hemorrhage, not elsewhere classified (principal); D62 Acute posthemorrhagic anemia; I48.91 Unspecified atrial fibrillation; E78.00 Pure hypercholesterolemia, unspecified; I10 Essential (primary) hypertension; F41.9 Anxiety disorder, unspecified; F32.9 Major depressive disorder, single episode, unspecified; Z88.0 Allergy status to penicillin; Z79.899 Other long term (current) drug therapy; Z79.01 Long term (current) use of anticoagulants
CPT/HCPCS: 81001; 85025; 85610; 85651; 85730; 86140; 96374; 99284-25; J2270

== ENCOUNTER 2019-04-09 05:08 | Emergency (ER) | payer MEDICARE, MEDICAID ==
[2019-04-09] MEDS: Morphine 4 MG/ML Syringe IVPUSH ONE (05:20)
--- NOTE | 2019-04-09 05:33 | EDM.PDOC ---
ED HPI GENERAL MEDICAL PROBLEM - General Chief Complaint: Abdominal Pain Stated Complaint: Abdominal pain Time Seen by Provider: 04/09/19 05:19 Source of Information: Reports: Patient History Limitations: Reports: No Limitations - History of Present Illness INITIAL COMMENTS - FREE TEXT/NARRATIVE: Patient is a 74-year-old female who presents to the emergency department this morning via EMS secondary to abdominal pain and bloody stool. Patient states this is a chronic condition however, it seemed to be worse this morning. Patient denies chest pain, shortness of breath, fever, nausea, vomiting, diarrhea, out of country travel, or change in medication. Onset: Gradual Duration: Chronic Location: Reports: Abdomen Quality: Reports: Ache, Pressure Severity: Moderate Improves with: Reports: None Worsens with: Reports: Movement Associated Symptoms: Reports: No Other Symptoms Abdomen Pain Score (Numeric/FACES): 10 - Related Data Allergies Allergy/AdvReac Type Severity Reaction Status Date / Time atorvastatin calcium Allergy Severe Nausea Verified 04/09/19 05:10 [From Lipitor] iodine Allergy Rash Verified 04/09/19 05:10 lisinopril Allergy Cough Verified 04/09/19 05:10 strawberry [Newman] Allergy Hives Verified 04/09/19 05:10 fish Allergy Severe Airway Uncoded 04/09/19 05:10 Tightness Home Meds: Home Meds Diltiazem HCl [Diltiazem 24Hr ER] 120 mg PO DAILY 11/10/13 [History] Escitalopram [Lexapro] 10 mg PO DAILY 11/10/13 [History] Esomeprazole [NexIUM] 40 mg PO BIDAC 04/21/17 [History] Iron Polysaccharide Complex [Ferric X-150] 150 mg PO DAILY 04/21/17 [History] Pramipexole Di-HCl [Pramipexole Dihydrochloride] 0.5 mg PO BEDTIME 04/21/17 [ History] Pravastatin [Pravachol] 40 mg PO BEDTIME 04/21/17 [History] Warfarin [Coumadin] 5 mg PO MOWEFR 09/30/17 [History] Cyanocobalamin (Vitamin B-12) [Cyanocobalamin Injection] 1,000 mcg IM Q30D 08/28 [History] Hydrocodone/Acetaminophen [Hydrocodon-Acetaminophen 5-325] 1 tab PO BID PRN [History] Melatonin/Pyridoxine HCl (B6) [Melatonin 3 mg Tablet] 3 mg PO BEDTIME 08/28/18 [ History] Metoprolol Succinate [Toprol XL] 25 mg PO DAILY 08/28/18 [History] glipiZIDE [Glipizide Xl] 5 mg PO WITHBREAKFAST 08/28/18 [History] hydroCHLOROthiazide [Hydrochlorothiazide] 25 mg PO DAILY 08/28/18 [History] Warfarin [Coumadin] 7.5 mg PO SUTUTHSA 08/29/18 [History] metFORMIN HCl [Metformin HCl] 500 mg PO BIDMEALS 08/29/18 [History] busPIRone [Buspar] 15 mg PO BID 10/14/18 [History] Cilostazol 100 mg PO BID 12/10/18 [History] Acetaminophen [Tylenol] 650 mg PO Q4H PRN 02/28/19 [History] Donepezil [Aricept] 5 mg PO BEDTIME 02/28/19 [History] Loratadine 10 mg PO DAILY PRN 02/28/19 [History] Phytonadione [Vitamin K] 100 mcg PO DAILY 02/28/19 [History] Vit A/Vit C/Vit E/Zinc/Copper [Preservision Areds Softgel] 1 cap PO BID [History] Ciprofloxacin HCl [Cipro] 500 mg PO BID #14 tablet 04/09/19 [Rx] metroNIDAZOLE [Flagyl] 500 mg PO Q12H #14 tab 04/09/19 [Rx] Past Medical History HEENT History: Reports: Cataract, Hard of Hearing, Impaired Vision Other HEENT History: hearing aids Cardiovascular History: Reports: Afib, High Cholesterol, Hypertension, Other ( See Below) Other Cardiovascular History: Varicose veins. Respiratory History: Reports: Other (See Below) Other Respiratory History: bronchitis Gastrointestinal History: Reports: Other (See Below) Other Gastrointestinal History: Dysphagia. Genitourinary History: Reports: STD LOG CUT OFF SAWYER History: Reports: None Musculoskeletal History: Reports: Other (See Below) Other Musculoskeletal History: Chronic shoulder pain. Rotator cuff tear and repair of both shoulders. Restless leg syndrome. Psychiatric History: Reports: Anxiety, Depression Endocrine/Metabolic History: Reports: Diabetes, Type II, Other (See Below) Other Endocrine/Metabolic History: rarely checks blood sugar Hematologic History: Reports: Anemia, Anticoagulation Therapy, B12 Deficiency, Iron Deficiency Oncologic (Cancer) History: Reports: None - Infectious Disease History Infectious Disease History: Reports: Chicken Pox, Influenza, Measles, Mumps, Pertussis (Whooping Cough) - Past Surgical History Head Surgeries/Procedures: Reports: None HEENT Surgical History: Reports: Cataract Surgery Respiratory Surgical History: Reports: None GI Surgical History: Reports: Bariatric Procedure, Cholecystectomy, Colonoscopy , EGD Other GI Surgeries/Procedures: Part of pancreas removed and spleenectomy. Female Surgical History: Reports: Breast Biopsy, Hysterectomy, Other (See Below) Other Female Surgeries/Procedures: Breast lumpectomy. Musculoskeletal Surgical History: Reports: Shoulder Surgery Oncologic Surgical History: Reports: Lumpectomy Social & Family History - Family History Family Medical History: Noncontributory : Reports: Cystic Kidney Disease Endocrine/Metabolic: Reports: Diabetes, type II Oncologic: Reports: Lung - Caffeine Use Caffeine Use: Reports: Coffee ED ROS GENERAL - Review of Systems Review Of Systems: ROS reveals no pertinent complaints other than HPI. Constitutional: Reports: No Symptoms HEENT: Reports: No Symptoms Respiratory: Reports: No Symptoms Cardiovascular: Reports: No Symptoms Endocrine: Reports: No Symptoms GI/Abdominal: Reports: Abdominal Pain, Bloody Stool, Mucous in Stool : Reports: No Symptoms Musculoskeletal: Reports: No Symptoms Skin: Reports: No Symptoms Neurological: Reports: No Symptoms Psychiatric: Reports: No Symptoms Hematologic/Lymphatic: Reports: No Symptoms Immunologic: Reports: No Symptoms ED EXAM, GI/ABD - Physical Exam Exam: See Below Exam Limited By: No Limitations General Appearance: Alert, WD/WN, No Apparent Distress Nose: Normal Inspection, Normal Mucosa, No Blood Throat/Mouth: Normal Inspection, Normal Oropharynx, No Airway Compromise Head: Atraumatic, Normocephalic Neck: Normal Inspection Respiratory/Chest: No Respiratory Distress, Lungs Clear, Normal Breath Sounds, No Accessory Muscle Use, Chest Non-Tender Cardiovascular: Regular Rate, Rhythm, No Murmur GI/Abdominal Exam: Normal Bowel Sounds, Soft, No Organomegaly, No Distention, No Abnormal Bruit, Tender (Suprapubic) Rectal (Female) Exam: Normal Rectal Tone, Heme - Stool, Hemorrhoids Back Exam: Normal Inspection. No: CVA Tenderness (L), CVA Tenderness (R) Extremities: Normal Inspection, No Pedal Edema Neurological: Alert, Oriented, Normal Cognition Psychiatric: Normal Affect, Normal Mood Skin Exam: Warm, Dry, Intact, Normal Color, No Rash Lymphatic: No Adenopathy Course - Vital Signs Last Recorded V/S: Last Vital Signs Temp 98.2 F 04/09/19 05:16 Pulse 78 04/09/19 05:16 Resp 18 04/09/19 05:16 BP 149/73 H 04/09/19 05:16 Pulse Ox 95 04/09/19 05:16 - Orders/Labs/Meds Orders: Active Orders 24 hr Category Date Time Status Peripheral IV Care [RC] . DIRECTED Care 04/09/19 05:18 Ordered Abdomen Pelvis wo Cont [CT] Stat Exams 04/09/19 05:17 Ordered CBC WITH AUTO DIFF [HEME] Stat Lab 04/09/19 05:17 Ordered COMPREHENSIVE METABOLIC PN,CMP [CHEM] Stat Lab 04/09/19 05:17 Ordered INR,PT,PROTHROMBIN TIME [COAG] Stat Lab 04/09/19 05:17 Ordered OCCULT BLOOD DIAGNOSTIC [OP] Stat Lab 04/09/19 05:17 Ordered PTT,PARTIAL THROMBOPLSTIN TIME [COAG] Stat Lab 04/09/19 05:17 Ordered Morphine Med 04/09/19 05:17 Once 4 mg IVPUSH ONETIME ONE Ondansetron [Zofran] Med 04/09/19 05:18 Once 4 mg IVPUSH ONETIME ONE Sodium Chloride 0.9% @ 999 MLS/HR (1000ml) Med 04/09/19 05:17 Ordered Sodium Chloride 0.9% [Normal Saline] 1,000 ml IV .BOLUS Sodium Chloride 0.9% [Saline Flush] Med 04/09/19 05:17 Ordered 10 ml FLUSH Q8HR PRN Peripheral IV Insertion Adult [OM.PC] Routine Oth 04/09/19 05:17 Ordered - Radiology Interpretation Free Text/Narrative:: CT abdomen and pelvis shows uncomplicated acute sigmoid diverticulitis, and thickened bladder suggestive of mild cystitis. - Re-Assessments/Exams Free Text/Narrative Re-Assessment/Exam: 04/09/19 07:32 Patient afebrile, vital signs stable, pain controlled, Hemoccult negative, patient given 500 mg Cipro and 500 mg Flagyl in ER. Prescription for Flagyl and Cipro to pharmacy. Patient will follow-up with PCP in 2 days Departure - Departure Time of Disposition: 07:33 Disposition: Home, Self-Care 01 Clinical Impression: Diverticulitis UTI (urinary tract infection) Qualifiers: Urinary tract infection type: acute cystitis Hematuria presence: without hematuria Qualified Code(s): N30.00 - Acute cystitis without hematuria - Discharge Information Instructions: Antibiotic Medicine, Adult, [id number], Urinary Tract Infection , Adult, [id number], Diverticulitis, [id number] Additional Instructions: Follow-up at [facility] tomorrow. Return to emergency department sooner if symptoms continue or worsen. Take medication as directed. - My Orders Last 24 Hours: My Active Orders 04/09/19 05:17 Abdomen Pelvis wo Cont [CT] Stat CBC WITH AUTO DIFF [HEME] Stat COMPREHENSIVE METABOLIC PN,CMP [CHEM] Stat INR,PT,PROTHROMBIN TIME [COAG] Stat OCCULT BLOOD DIAGNOSTIC [OP] Stat PTT,PARTIAL THROMBOPLSTIN TIME [COAG] Stat Morphine 4 mg IVPUSH ONETIME ONE Sodium Chloride 0.9% @ 999 MLS/HR (1000ml) Sodium Chloride 0.9% [Normal Saline] 1,000 ml IV .BOLUS Sodium Chloride 0.9% [Saline Flush] 10 ml FLUSH Q8HR PRN Peripheral IV Insertion Adult [OM.PC] Routine 04/09/19 05:18 Peripheral IV Care [RC] . DIRECTED Ondansetron [Zofran] 4 mg IVPUSH ONETIME ONE - Assessment/Plan Last 24 Hours: My Active Orders 04/09/19 05:17 Abdomen Pelvis wo Cont [CT] Stat CBC WITH AUTO DIFF [HEME] Stat COMPREHENSIVE METABOLIC PN,CMP [CHEM] Stat INR,PT,PROTHROMBIN TIME [COAG] Stat OCCULT BLOOD DIAGNOSTIC [OP] Stat PTT,PARTIAL THROMBOPLSTIN TIME [COAG] Stat Morphine 4 mg IVPUSH ONETIME ONE Sodium Chloride 0.9% @ 999 MLS/HR (1000ml) Sodium Chloride 0.9% [Normal Saline] 1,000 ml IV .BOLUS Sodium Chloride 0.9% [Saline Flush] 10 ml FLUSH Q8HR PRN Peripheral IV Insertion Adult [OM.PC] Routine 04/09/19 05:18 Peripheral IV Care [RC] . DIRECTED Ondansetron [Zofran] 4 mg IVPUSH ONETIME ONE Assessment:: Diverticulitis, UTI Plan: Follow-up with PCP
[2019-04-09 05:57] LABS: ANION GAP 17.7 mmol/L (5-15)
[2019-04-09] MEDS: Ondansetron 4 MG/2 ML SDV IVPUSH ONE (05:58)
[2019-04-09] MEDS: Sodium Chloride 0.9% 10 ML Syringe FLUSH PRN (05:58)
[2019-04-09] MEDS: Sodium Chloride 0.9% 1,000 ML IV ONE (05:59)
[2019-04-09 07:08] VITALS: BP 151/79
[2019-04-09] MEDS: metroNIDAZOLE 500 MG Tab PO ONE (07:31)
[2019-04-09] MEDS: Ciprofloxacin 500 MG Tab PO ONE (07:31)
[2019-04-09] MEDS: metroNIDAZOLE 500 MG Tab PO SCH (08:18)
[2019-04-09] MEDS: Ciprofloxacin 500 MG Tab PO SCH (08:18)
--- NOTE | 2019-04-09 08:33 | CT ---
[id number] CT/CT Abdomen Pelvis WO IV Exam: CT Abdomen Pelvis WO IV Clinical Data: ABDOMINAL PAIN COMPARISON: CORRELATION IS MADE WITH THE EXAM OF FEBRUARY 28, 2019. FINDINGS: There is uncomplicated colonic diverticular disease. There is no evidence of appendicitis. There is no hydronephrosis. There are no radiopaque calculi of either kidney or either ureter. A right-sided rectus sheath hematoma is resolving. The liver, adrenals, aorta, and pancreas show no acute abnormalities. The spleen is not seen. Multiple surgical changes are seen. The gallbladder is not seen. There is a small upper pole right renal cyst. Minimal prominence in the lateral border of the lower pole right kidney is stable. IMPRESSION: NO NEW FINDINGS. Reji Jensen MD 04/09/19 0832 Thank you for allowing us to participate in the care of your patient.
== END 2019-04-09 08:00 | disposition home or self-care (01) ==
LOC: KA.ED 05:08
DX: K57.32 Diverticulitis of large intestine without perforation or abscess without bleeding (principal); N30.00 Acute cystitis without hematuria; F41.9 Anxiety disorder, unspecified; F32.9 Major depressive disorder, single episode, unspecified; E11.9 Type 2 diabetes mellitus without complications; I10 Essential (primary) hypertension; Z79.01 Long term (current) use of anticoagulants; Z98.49 Cataract extraction status, unspecified eye; Z90.49 Acquired absence of other specified parts of digestive tract; Z90.710 Acquired absence of both cervix and uterus; Z79.899 Other long term (current) drug therapy; Z91.013 Allergy to seafood; Z91.018 Allergy to other foods; Z88.8 Allergy status to other drugs, medicaments and biological substances
CPT/HCPCS: 74176; 80053; 81001; 82272; 85025; 85610; 85730; 87086; 87088; 87186; 96361; 96374; 96375; 99284; 99285-25; A9270-GY; J2270; J2405; J7030

== ENCOUNTER 2020-07-02 11:20 | Inpatient (IN) | payer MEDICARE, MEDICAID ==
--- NOTE | 2020-07-02 11:46 | EDM.PDOC ---
ED HPI GENERAL MEDICAL PROBLEM - General Chief Complaint: Respiratory Problem Time Seen by Provider: 07/02/20 11:45 Source of Information: Reports: Patient History Limitations: Reports: No Limitations - History of Present Illness Onset: Today Onset Date: 07/02/20 Onset Time: 08:00 Duration: Hour(s): Location: Reports: Chest Quality: Reports: Burning Severity: Moderate Improves with: Reports: None Worsens with: Reports: Breathing Context: Reports: Other Associated Symptoms: Reports: No Other Symptoms Chest Pain Score (Numeric/FACES): 9 - Related Data Allergies Allergy/AdvReac Type Severity Reaction Status Date / Time atorvastatin calcium Allergy Severe Nausea Verified 07/02/20 13:33 [From Lipitor] iodine Allergy Rash Verified 07/02/20 13:33 lisinopril Allergy Cough Verified 07/02/20 13:33 strawberry [Driscoll] Allergy Hives Verified 07/02/20 13:33 fish Allergy Severe Airway Uncoded 12/27/19 09:44 Tightness Home Meds: Home Meds Escitalopram [Lexapro] 10 mg PO DAILY 11/10/13 [History] Esomeprazole [NexIUM] 40 mg PO BIDAC 04/21/17 [History] Pravastatin [Pravachol] 40 mg PO BEDTIME 04/21/17 [History] Warfarin [Coumadin] 5 mg PO ASDIRECTED 09/30/17 [History] Cyanocobalamin (Vitamin B-12) [Cyanocobalamin Injection] 1,000 mcg IM Q30D 08/28/18 [History] Hydrocodone/Acetaminophen [Hydrocodone-Acetamin 5-325 mg] 1 tab PO BID PRN 08/28/18 [History] Melatonin/Pyridoxine HCl (B6) [Melatonin 3 mg Tablet] 3 mg PO BEDTIME 08/28/18 [History] Metoprolol Succinate [Toprol XL] 25 mg PO DAILY 08/28/18 [History] hydroCHLOROthiazide [Hydrochlorothiazide] 25 mg PO DAILY 08/28/18 [History] Warfarin [Coumadin] 7.5 mg PO SUTUTHSA 08/29/18 [History] busPIRone [Buspar] 15 mg PO TID 10/14/18 [History] Acetaminophen [Tylenol] 650 mg PO Q4H PRN 02/28/19 [History] Loratadine 10 mg PO DAILY PRN 02/28/19 [History] Phytonadione [Vitamin K] 100 mcg PO DAILY 02/28/19 [History] Alum Hydroxide/Mag Carbonate [Acid Gone] 2 tab PO Q4H PRN 07/02/20 [History] Diltiazem [Tiazac] 240 mg PO DAILY 07/02/20 [History] Dulaglutide [Trulicity] 0.5 ml SQ Q7D 07/02/20 [History] Insulin Degludec [Tresiba] 10 unit SQ 0730 07/02/20 [History] Iron Polysaccharide Complex [Poly-Iron] 1 cap PO DAILY 07/02/20 [History] Magnesium Hydroxide [Milk of Magnesia] 30 ml PO BEDTIME PRN 07/02/20 [History] Sennosides/Docusate Sodium [Senna Plus 8.6-50 mg Tablet] 1 tab PO BID 07/02/20 [History] Vit A/Vit C/Vit E/Zinc/Copper [Preservision Areds Softgel] 1 cap PO BID 07/02/20 [History] metFORMIN [Glucophage] 1,000 mg PO 1645 07/02/20 [History] metFORMIN [Glucophage] 500 mg PO 0645 07/02/20 [History] rOPINIRole [Requip] 1 mg PO BEDTIME 07/02/20 [History] rOPINIRole [Requip] 1 mg PO DAILY 07/02/20 [History] Past Medical History HEENT History: Reports: Cataract, Hard of Hearing, Impaired Vision Other HEENT History: hearing aids Cardiovascular History: Reports: Afib, Blood Clots/VTE/DVT, High Cholesterol, Hypertension, Other (See Below) Other Cardiovascular History: Varicose veins. Respiratory History: Reports: Other (See Below) Other Respiratory History: bronchitis Gastrointestinal History: Reports: GERD Other Gastrointestinal History: Dysphagia. Genitourinary History: Reports: STD FAMILY PHYSICIAN History: Reports: None Musculoskeletal History: Reports: Other (See Below) Other Musculoskeletal History: Chronic shoulder pain. Rotator cuff tear and repair of both shoulders. Restless leg syndrome. Psychiatric History: Reports: Anxiety, Depression, Panic Attack Endocrine/Metabolic History: Reports: Diabetes, Type II Other Endocrine/Metabolic History: rarely checks blood sugar Hematologic History: Reports: Anemia, Anticoagulation Therapy, B12 Deficiency, Blood Transfusion(s), Iron Deficiency Oncologic (Cancer) History: Reports: None Dermatologic History: Reports: Other (See Below) (Fatty tumor removal posterior thorax x 2) - Infectious Disease History Infectious Disease History: Reports: Chicken Pox, Measles, Mumps, Pertussis (Whooping Cough) - Past Surgical History Head Surgeries/Procedures: Reports: None HEENT Surgical History: Reports: Cataract Surgery Cardiovascular Surgical History: Reports: None Respiratory Surgical History: Reports: None GI Surgical History: Reports: Bariatric Procedure, Cholecystectomy, Colonoscopy, EGD Other GI Surgeries/Procedures: Part of pancreas removed and spleenectomy. Female Surgical History: Reports: Breast Biopsy, Hysterectomy, Other (See Below) Other Female Surgeries/Procedures: Breast lumpectomy. Endocrine Surgical History: Reports: None Musculoskeletal Surgical History: Reports: Shoulder Surgery Oncologic Surgical History: Reports: Lumpectomy - Past Imaging History Past Imaging History: Reports: Cardiac Echo, Xray Social & Family History - Family History Family Medical History: Noncontributory : Reports: Cystic Kidney Disease Endocrine/Metabolic: Reports: Diabetes, type II Oncologic: Reports: Lung - Caffeine Use Caffeine Use: Reports: Coffee ED ROS GENERAL - Review of Systems Review Of Systems: See Below Constitutional: Reports: No Symptoms HEENT: Reports: No Symptoms Respiratory: Reports: Shortness of Breath, Cough Cardiovascular: Reports: Chest Pain (More pressure than pain, history atrial fibrillation) Endocrine: Reports: No Symptoms GI/Abdominal: Reports: No Symptoms : Reports: No Symptoms Musculoskeletal: Reports: Shoulder Pain Skin: Reports: No Symptoms Neurological: Reports: No Symptoms Psychiatric: Reports: No Symptoms Hematologic/Lymphatic: Reports: No Symptoms Immunologic: Reports: No Symptoms ED EXAM, GENERAL - Physical Exam Exam: See Below General Appearance: Alert, WD/WN, No Apparent Distress Ears: Normal External Exam, Normal Canal, Hearing Grossly Normal, Normal TMs Nose: Normal Inspection, Normal Mucosa, No Blood Throat/Mouth: Normal Inspection, Normal Lips, Normal Teeth, Normal Gums, Normal Oropharynx, Normal Voice, No Airway Compromise Head: Atraumatic, Normocephalic Neck: Normal Inspection, Supple, Non-Tender, Full Range of Motion Respiratory/Chest: No Respiratory Distress, No Accessory Muscle Use, Rhonchi. No: Normal Breath Sounds Cardiovascular: Regular Rate, Rhythm, No Murmur GI/Abdominal: Normal Bowel Sounds, Soft, Non-Tender, No Organomegaly, No Distention, No Abnormal Bruit, No Mass (Female) Exam: Deferred Rectal (Female) Exam: Deferred Back Exam: Normal Inspection, Full Range of Motion, NT Extremities: Normal Inspection, Normal Range of Motion, Non-Tender, Normal Capillary Refill Neurological: Alert Psychiatric: Normal Affect, Normal Mood Skin Exam: Warm, Dry, Intact, Normal Color, No Rash Lymphatic: No Adenopathy EKG INTERPRETATION EKG Date: 07/02/20 Time: 12:05 Rhythm: NSR Rate (Beats/Min): 72 [place]: Normal QRS: Normal ST-T: Normal QT: Normal Course - Vital Signs Text/Narrative:: Delay in the evaluation process and admission process secondary of COVID screening. Last Recorded V/S: Last Vital Signs Temp 36.8 C 07/02/20 12:34 Pulse 71 07/02/20 12:34 Resp 16 07/02/20 12:34 BP 136/65 07/02/20 12:34 Pulse Ox 94 L 07/02/20 12:34 - Orders/Labs/Meds Orders: Active Orders 24 hr Category Date Time Status Patient Status [ADT] Routine ADT 07/02/20 15:06 Ordered CULTURE BLOOD [BC] Stat Lab 07/02/20 14:35 Received CULTURE BLOOD [BC] Stat Lab 07/02/20 14:55 Received Blood Culture x2 Reflex Set [OM.PC] Stat Oth 07/02/20 14:22 Ordered EKG 12 Lead [EK] Urgent Ther 07/02/20 11:53 Stop Req Labs: Laboratory Tests 07/02/20 07/02/20 07/02/20 Range/Units 11:43 11:52 11:52 WBC 17.12 H (5.00-10.00) 10^3/uL RBC 3.86 (3.80-5.50) 10^6/uL Hgb 11.1 L D (12.0-16.0) g/dL Hct 34.2 L (37.0-47.0) % MCV 88.6 D (82.0-92.0) fL MCH 28.8 (27.0-31.0) pg MCHC 32.5 (32.0-36.0) g/dL RDW 15.3 H (11.5-14.5) % Plt Count 359 D (150-400) 10^3/uL MPV 9.6 (7.4-10.4) fL Immature Gran % (Auto) 0.2 (0.0-5.0) % Neut % (Auto) 74.9 H (50.0-70.0) % Lymph % (Auto) 14.4 L (20.0-40.0) % Robeson % (Auto) 9.3 H (2.0-8.0) % Eos % (Auto) 0.8 L (1.0-3.0) % Baso % (Auto) 0.4 (0.0-1.0) % Neut # (Auto) 12.82 H (2.50-7.00) 10^3/uL Lymph # (Auto) 2.46 (1.00-4.00) 10^3/uL Robeson # (Auto) 1.60 H (0.10-0.80) 10^3/uL Eos # (Auto) 0.14 (0.10-0.30) 10^3/uL Baso # (Auto) 0.06 (0.00-0.10) 10^3/uL Immature Gran # (Auto) 0.04 (0.00-0.50) 10^3/uL PT (9.2-11.2) SEC INR (0.9-1.1) D-Dimer, Quantitative (<400) ng/mL Sodium 142 (136-145) mmol/L Potassium 4.5 (3.3-5.3) mmol/L Chloride 105 (98-115) mmol/L Carbon Dioxide 24.9 (21.0-32.0) mmol/L Anion Gap 16.6 H (5-15) mmol/L BUN 25 (6-25) mg/dL Creatinine 1.09 (0.51-1.17) mg/dL Est Cr Clr Drug Dosing 40.46 mL/min Estimated GFR (MDRD) 49 mL/min Glucose 131 H (75 - 99) mg/dL Calcium 8.4 L (8.7-10.3) mg/dL Total Bilirubin 0.3 (0.2-1.0) mg/dL AST 24 (15-37) U/L ALT 33 (12-78) U/L Alkaline Phosphatase 82 (46-116) IU/L Creatine Kinase 50 (26-276) U/L CK-MB (CK-2) 0.60 (0.00-4.30) ng/mL Troponin I < 0.04 (0.00-0.070) ng/mL B-Natriuretic Peptide 59 (0-100) pg/mL Total Protein 7.1 (6.4-8.2) g/dL Albumin 3.31 (3.00-4.80) g/dL COVID-19 (JEZ) Negative (NEGATIVE) 07/02/20 07/02/20 Range/Units 11:53 11:55 WBC (5.00-10.00) 10^3/uL RBC (3.80-5.50) 10^6/uL Hgb (12.0-16.0) g/dL Hct (37.0-47.0) % MCV (82.0-92.0) fL MCH (27.0-31.0) pg MCHC (32.0-36.0) g/dL RDW (11.5-14.5) % Plt Count (150-400) 10^3/uL MPV (7.4-10.4) fL Immature Gran % (Auto) (0.0-5.0) % Neut % (Auto) (50.0-70.0) % Lymph % (Auto) (20.0-40.0) % Robeson % (Auto) (2.0-8.0) % Eos % (Auto) (1.0-3.0) % Baso % (Auto) (0.0-1.0) % Neut # (Auto) (2.50-7.00) 10^3/uL Lymph # (Auto) (1.00-4.00) 10^3/uL Robeson # (Auto) (0.10-0.80) 10^3/uL Eos # (Auto) (0.10-0.30) 10^3/uL Baso # (Auto) (0.00-0.10) 10^3/uL Immature Gran # (Auto) (0.00-0.50) 10^3/uL PT 18.3 H (9.2-11.2) SEC INR 1.8 H (0.9-1.1) D-Dimer, Quantitative < 100 (<400) ng/mL Sodium (136-145) mmol/L Potassium (3.3-5.3) mmol/L Chloride (98-115) mmol/L Carbon Dioxide (21.0-32.0) mmol/L Anion Gap (5-15) mmol/L BUN (6-25) mg/dL Creatinine (0.51-1.17) mg/dL Est Cr Clr Drug Dosing mL/min Estimated GFR (MDRD) mL/min Glucose (75 - 99) mg/dL Calcium (8.7-10.3) mg/dL Total Bilirubin (0.2-1.0) mg/dL AST (15-37) U/L ALT (12-78) U/L Alkaline Phosphatase (46-116) IU/L Creatine Kinase (26-276) U/L CK-MB (CK-2) (0.00-4.30) ng/mL Troponin I (0.00-0.070) ng/mL B-Natriuretic Peptide (0-100) pg/mL Total Protein (6.4-8.2) g/dL Albumin (3.00-4.80) g/dL COVID-19 (JEZ) (NEGATIVE) Meds: Medications Discontinued Medications Generic Name Dose Route Start Last Admin Trade Name Freq PRN Reason Stop Dose Admin Ceftriaxone Sodium 1 gm 07/02/20 14:00 07/02/20 14:53 Rocephin IVPUSH 07/02/20 14:01 1 gm ONETIME ONE Administration - Re-Assessments/Exams Free Text/Narrative Re-Assessment/Exam: 07/02/20 15:09 Contacted Yannick Summers to discuss admission for right middle lobe pneumonia with elevated white count. He is to admission. Advised of elevated white count as well as subtherapeutic INR. Departure - Departure Time of Disposition: 15:10 Disposition: Admitted As Inpatient 64 Condition: Good Clinical Impression: SOB (shortness of breath), Pneumonia - Discharge Information *PRESCRIPTION DRUG MONITORING PROGRAM REVIEWED*: Not Applicable *COPY OF PRESCRIPTION DRUG MONITORING REPORT IN PATIENT MU: Not Applicable Referrals: PCP,Unknown [Ordering Only Provider] - Forms: ED Department Discharge Additional Instructions: Admission for pneumonia, Mark Ramsay Sepsis Event Note (ED) - Focused Exam Vital Signs: Vital Signs Temp Pulse Resp BP Pulse Ox 07/02/20 12:34 36.8 C 71 16 136/65 94 L 07/02/20 11:30 37.7 C 79 16 156/84 H 94 L - Problem List & Annotations (1) SOB (shortness of breath) SNOMED Code(s): 238875194 Code(s): R06.02 - SHORTNESS OF BREATH Status: Acute Current Visit: No (2) Pneumonia SNOMED Code(s): 664503292 Code(s): J18.9 - PNEUMONIA, UNSPECIFIED ORGANISM Status: Acute Current Visit: Yes Qualifiers: Pneumonia type: due to unspecified organism Laterality: right (3) Leukocytosis SNOMED Code(s): 948883282, 495561462 Code(s): D72.829 - ELEVATED WHITE BLOOD CELL COUNT, UNSPECIFIED Status: Acute Current Visit: No (4) Inadequate anticoagulation SNOMED Code(s): 92921179 Code(s): Z51.81 - ENCOUNTER FOR THERAPEUTIC DRUG LEVEL MONITORING; Z79.01 - USP (CURRENT) USE OF ANTICOAGULANTS Status: Acute Priority: Medium Current Visit: Yes - Problem List Review Problem List Initiated/Reviewed/Updated: Yes - My Orders Last 24 Hours: My Active Orders 07/02/20 11:53 EKG 12 Lead [EK] Urgent 07/02/20 14:22 Blood Culture x2 Reflex Set [OM.PC] Stat 07/02/20 14:35 CULTURE BLOOD [BC] Stat 07/02/20 14:55 CULTURE BLOOD [BC] Stat 07/02/20 15:06 Patient Status [ADT] Routine - Assessment/Plan Last 24 Hours: My Active Orders 07/02/20 11:53 EKG 12 Lead [EK] Urgent 07/02/20 14:22 Blood Culture x2 Reflex Set [OM.PC] Stat 07/02/20 14:35 CULTURE BLOOD [BC] Stat 07/02/20 14:55 CULTURE BLOOD [BC] Stat 07/02/20 15:06 Patient Status [ADT] Routine
[2020-07-02 12:50] LABS: ANION GAP 16.6 mmol/L (5-15); CHLORIDE,CL 105 mmol/L (98-115); SODIUM,NA 142 mmol/L (136-145)
--- NOTE | 2020-07-02 13:48 | CR ---
[id number] RAD/RAD Chest PA And Lateral EXAM: RAD Chest PA And Lateral INDICATION: SHORT OF BREATH. COMPARISON: October 2018. DISCUSSION: Cardiomediastinal silhouette is normal in size and contour. Opacity projecting over the right lung base, correlating with the middle lobe on lateral view. Correlate for infection, as this could represent pneumonia. Differential diagnosis includes atelectasis. Finding was not seen in 2018. Left lung is clear. IMPRESSION: As above. Maxi Petty MD 07/02/20 0952 Thank you for allowing us to participate in the care of your patient.
[2020-07-02] MEDS: cefTRIAXone 1 GM Vial IVPUSH ONE ×2 (14:20→14:53)
[2020-07-02] MEDS: Menthol 7.6 MG Sugar Free Lozenge PO PRN ×2 (16:12→20:38)
[2020-07-02] MEDS ORDERED: Magnesium Hydroxide 400 MG/5 ML Susp 30 ML Cup PO PRN (17:29)
[2020-07-02] MEDS ORDERED: MAGNESIUM CARBONATE PO PRN (17:29)
[2020-07-02] MEDS ORDERED: Acetaminophen 325 MG Tab PO PRN (17:29)
[2020-07-02] MEDS ORDERED: ALUMINUM HYDROXIDE PO PRN (17:29)
--- NOTE | 2020-07-02 17:44 | PCM.HP.2 ---
H&P History of Present Illness - General Date of Service: 07/02/20 Admit Problem/Dx: Admission Diagnosis/Problem Admission Diagnosis/Problem Pneumonia Source of Information: Patient, Old Records, Provider, RN Chest Pain Score (Numeric/FACES): 9 - Related Data Allergies/Adverse Reactions: Allergies Allergy/AdvReac Type Severity Reaction Status Date / Time atorvastatin calcium Allergy Severe Nausea Verified 07/02/20 13:33 [From Lipitor] iodine Allergy Rash Verified 07/02/20 13:33 lisinopril Allergy Cough Verified 07/02/20 13:33 strawberry [[place]] Allergy Hives Verified 07/02/20 13:33 fish Allergy Severe Airway Uncoded 12/27/19 09:44 Tightness Home Medications: Home Meds Escitalopram [Lexapro] 10 mg PO DAILY 11/10/13 [History] Esomeprazole [NexIUM] 40 mg PO BIDAC 04/21/17 [History] Pravastatin [Pravachol] 40 mg PO BEDTIME 04/21/17 [History] Warfarin [Coumadin] 5 mg PO SUTUWETHSA 09/30/17 [History] Cyanocobalamin (Vitamin B-12) [Cyanocobalamin Injection] 1,000 mcg IM Q30D 08/28/18 [History] Hydrocodone/Acetaminophen [Hydrocodone-Acetamin 5-325 mg] 1 tab PO BID PRN 08/28/18 [History] Metoprolol Succinate [Toprol XL] 25 mg PO DAILY 08/28/18 [History] hydroCHLOROthiazide [Hydrochlorothiazide] 25 mg PO DAILY 08/28/18 [History] Warfarin [Coumadin] 7.5 mg PO MOFR 08/29/18 [History] busPIRone [Buspar] 15 mg PO TID 10/14/18 [History] Acetaminophen [Tylenol] 650 mg PO Q4H PRN 02/28/19 [History] Loratadine 10 mg PO DAILY PRN 02/28/19 [History] Phytonadione [Vitamin K] 100 mcg PO DAILY 02/28/19 [History] Alum Hydroxide/Mag Carbonate [Acid Gone] 2 tab PO Q4H PRN 07/02/20 [History] Diltiazem [Tiazac] 240 mg PO DAILY 07/02/20 [History] Dulaglutide [Trulicity] 0.5 ml SQ TU 07/02/20 [History] Insulin Degludec [Tresiba] 10 unit SQ 0730 07/02/20 [History] Iron Polysaccharide Complex [Poly-Iron] 1 cap PO DAILY 07/02/20 [History] Magnesium Hydroxide [Milk of Magnesia] 30 ml PO BEDTIME PRN 07/02/20 [History] Melatonin 3 mg PO BEDTIME 07/02/20 [History] Sennosides/Docusate Sodium [Senna Plus 8.6-50 mg Tablet] 1 tab PO BID 07/02/20 [History] Vit A/Vit C/Vit E/Zinc/Copper [Preservision Areds Softgel] 1 cap PO BID 07/02/20 [History] metFORMIN [Glucophage] 1,000 mg PO 1645 07/02/20 [History] metFORMIN [Glucophage] 500 mg PO 0645 07/02/20 [History] rOPINIRole [Requip] 1 mg PO BEDTIME 07/02/20 [History] rOPINIRole [Requip] 1 mg PO DAILY 07/02/20 [History] Doxycycline [Vibra-Tabs] 100 mg PO Q12HR #12 tab 07/03/20 [Rx] Past Medical History HEENT History: Reports: Cataract, Hard of Hearing, Impaired Vision Other HEENT History: hearing aids Cardiovascular History: Reports: Afib, Blood Clots/VTE/DVT, High Cholesterol, Hypertension, Other (See Below) Other Cardiovascular History: Varicose veins. Respiratory History: Reports: Other (See Below) Other Respiratory History: bronchitis Gastrointestinal History: Reports: GERD Other Gastrointestinal History: Dysphagia. Genitourinary History: Reports: [employer] History: Reports: None Musculoskeletal History: Reports: Other (See Below) Other Musculoskeletal History: Chronic shoulder pain. Rotator cuff tear and repair of both shoulders. Restless leg syndrome. Psychiatric History: Reports: Anxiety, Depression, Panic Attack Endocrine/Metabolic History: Reports: Diabetes, Type II Other Endocrine/Metabolic History: rarely checks blood sugar Hematologic History: Reports: Anemia, Anticoagulation Therapy, B12 Deficiency, Blood Transfusion(s), Iron Deficiency Oncologic (Cancer) History: Reports: None Dermatologic History: Reports: Other (See Below) - Infectious Disease History Infectious Disease History: Reports: Chicken Pox, Measles, Mumps, Pertussis (Whooping Cough) - Past Surgical History Head Surgeries/Procedures: Reports: None HEENT Surgical History: Reports: Cataract Surgery Cardiovascular Surgical History: Reports: None Respiratory Surgical History: Reports: None GI Surgical History: Reports: Bariatric Procedure, Cholecystectomy, Colonoscopy, EGD Other GI Surgeries/Procedures: Part of pancreas removed and spleenectomy. Female Surgical History: Reports: Breast Biopsy, Hysterectomy, Other (See Below) Other Female Surgeries/Procedures: Breast lumpectomy. Endocrine Surgical History: Reports: None Musculoskeletal Surgical History: Reports: Shoulder Surgery Oncologic Surgical History: Reports: Lumpectomy - Past Imaging History Past Imaging History: Reports: Cardiac Echo, Xray Social & Family History - Family History Family Medical History: Noncontributory : Reports: Cystic Kidney Disease Endocrine/Metabolic: Reports: Diabetes, type II Oncologic: Reports: Lung - Tobacco Use Smoking Status *Q: Former Smoker Used Tobacco, but Quit: Yes Month/Year Tobacco Last Used: 1979 - Caffeine Use Caffeine Use: Reports: Coffee - Recreational Drug Use Recreational Drug Use: No H&P Review of Systems - Review of Systems: Review Of Systems: See Below General: Reports: Fever. Denies: Chills, Malaise, Weakness HEENT: Reports: No Symptoms Pulmonary: Reports: Cough, Sputum Cardiovascular: Reports: No Symptoms Gastrointestinal: Reports: No Symptoms Genitourinary: Reports: No Symptoms Musculoskeletal: Reports: No Symptoms Skin: Reports: No Symptoms Psychiatric: Reports: No Symptoms Neurological: Reports: No Symptoms Hematologic/Lymphatic: Reports: No Symptoms Immunologic: Reports: No Symptoms Exam - Exam Exam: See Below - Vital Signs Vital Signs: Last Vital Signs Temp 97.2 F 07/02/20 15:52 Pulse 91 07/02/20 15:52 Resp 17 07/02/20 15:52 BP 142/75 H 07/02/20 15:52 Pulse Ox 95 07/02/20 15:52 Weight: 181 lb 8 oz - Exam Quality Assessment: Supplemental Oxygen General: Alert, Oriented, 4 HEENT: Conjunctiva Clear, Hearing Intact Lungs: Clear to Auscultation, Normal Respiratory Effort, Decreased Breath Sounds. No: Crackles, Rhonchi, Wheezing Cardiovascular: Irregular Rhythm GI/Abdominal Exam: Non-Tender, No Mass (Female) Exam: Deferred Back Exam: No: CVA Tenderness (L), CVA Tenderness (R) Extremities: Normal Capillary Refill, Pedal Edema Skin: Warm, Dry, Intact Neurological: Cranial Nerves Intact Neuro Extensive - Mental Status: Alert, Oriented x3, Normal Mood/Affect, Normal Cognition Neuro Extensive - Motor, Sensory, Reflexes: CN II-XII Intact, Normal Gait, Normal Reflexes Psychiatric: Alert, Normal Affect, Normal Mood - Patient Data Lab Results Last 24 hrs: Laboratory Results - last 24 hr 07/02/20 07/02/20 07/02/20 Range/Units 11:43 11:52 11:52 WBC 17.12 H (5.00-10.00) 10^3/uL RBC 3.86 (3.80-5.50) 10^6/uL Hgb 11.1 L D (12.0-16.0) g/dL Hct 34.2 L (37.0-47.0) % MCV 88.6 D (82.0-92.0) fL MCH 28.8 (27.0-31.0) pg MCHC 32.5 (32.0-36.0) g/dL RDW 15.3 H (11.5-14.5) % Plt Count 359 D (150-400) 10^3/uL MPV 9.6 (7.4-10.4) fL Immature Gran % (Auto) 0.2 (0.0-5.0) % Neut % (Auto) 74.9 H (50.0-70.0) % Lymph % (Auto) 14.4 L (20.0-40.0) % Phelps % (Auto) 9.3 H (2.0-8.0) % Eos % (Auto) 0.8 L (1.0-3.0) % Baso % (Auto) 0.4 (0.0-1.0) % Neut # (Auto) 12.82 H (2.50-7.00) 10^3/uL Lymph # (Auto) 2.46 (1.00-4.00) 10^3/uL Phelps # (Auto) 1.60 H (0.10-0.80) 10^3/uL Eos # (Auto) 0.14 (0.10-0.30) 10^3/uL Baso # (Auto) 0.06 (0.00-0.10) 10^3/uL Immature Gran # (Auto) 0.04 (0.00-0.50) 10^3/uL PT (9.2-11.2) SEC INR (0.9-1.1) D-Dimer, Quantitative (<400) ng/mL Sodium 142 (136-145) mmol/L Potassium 4.5 (3.3-5.3) mmol/L Chloride 105 (98-115) mmol/L Carbon Dioxide 24.9 (21.0-32.0) mmol/L Anion Gap 16.6 H (5-15) mmol/L BUN 25 (6-25) mg/dL Creatinine 1.09 (0.51-1.17) mg/dL Est Cr Clr Drug Dosing 40.46 mL/min Estimated GFR (MDRD) 49 mL/min Glucose 131 H (75 - 99) mg/dL Calcium 8.4 L (8.7-10.3) mg/dL Total Bilirubin 0.3 (0.2-1.0) mg/dL AST 24 (15-37) U/L ALT 33 (12-78) U/L Alkaline Phosphatase 82 (46-116) IU/L Creatine Kinase 50 (26-276) U/L CK-MB (CK-2) 0.60 (0.00-4.30) ng/mL Troponin I < 0.04 (0.00-0.070) ng/mL B-Natriuretic Peptide 59 (0-100) pg/mL Total Protein 7.1 (6.4-8.2) g/dL Albumin 3.31 (3.00-4.80) g/dL COVID-19 (JEZ) Negative (NEGATIVE) 07/02/20 07/02/20 Range/Units 11:53 11:55 WBC (5.00-10.00) 10^3/uL RBC (3.80-5.50) 10^6/uL Hgb (12.0-16.0) g/dL Hct (37.0-47.0) % MCV (82.0-92.0) fL MCH (27.0-31.0) pg MCHC (32.0-36.0) g/dL RDW (11.5-14.5) % Plt Count (150-400) 10^3/uL MPV (7.4-10.4) fL Immature Gran % (Auto) (0.0-5.0) % Neut % (Auto) (50.0-70.0) % Lymph % (Auto) (20.0-40.0) % Phelps % (Auto) (2.0-8.0) % Eos % (Auto) (1.0-3.0) % Baso % (Auto) (0.0-1.0) % Neut # (Auto) (2.50-7.00) 10^3/uL Lymph # (Auto) (1.00-4.00) 10^3/uL Phelps # (Auto) (0.10-0.80) 10^3/uL Eos # (Auto) (0.10-0.30) 10^3/uL Baso # (Auto) (0.00-0.10) 10^3/uL Immature Gran # (Auto) (0.00-0.50) 10^3/uL PT 18.3 H (9.2-11.2) SEC INR 1.8 H (0.9-1.1) D-Dimer, Quantitative < 100 (<400) ng/mL Sodium (136-145) mmol/L Potassium (3.3-5.3) mmol/L Chloride (98-115) mmol/L Carbon Dioxide (21.0-32.0) mmol/L Anion Gap (5-15) mmol/L BUN (6-25) mg/dL Creatinine (0.51-1.17) mg/dL Est Cr Clr Drug Dosing mL/min Estimated GFR (MDRD) mL/min Glucose (75 - 99) mg/dL Calcium (8.7-10.3) mg/dL Total Bilirubin (0.2-1.0) mg/dL AST (15-37) U/L ALT (12-78) U/L Alkaline Phosphatase (46-116) IU/L Creatine Kinase (26-276) U/L CK-MB (CK-2) (0.00-4.30) ng/mL Troponin I (0.00-0.070) ng/mL B-Natriuretic Peptide (0-100) pg/mL Total Protein (6.4-8.2) g/dL Albumin (3.00-4.80) g/dL COVID-19 (JEZ) (NEGATIVE) Result Diagrams: 07/03/20 07:15 07/02/20 11:52 Sepsis Event Note - Evaluation Sepsis Screening Result: No Definite Risk - Focused Exam Vital Signs: Vital Signs Temp Pulse Resp BP Pulse Ox 07/02/20 15:52 97.2 F 91 17 142/75 H 95 07/02/20 15:08 78 15 118/69 95 07/02/20 12:34 98.2 F 71 16 136/65 94 L 07/02/20 11:30 99.9 F 79 16 156/84 H 94 L Problem List Initiated/Reviewed/Updated: Yes Orders Last 24hrs: Active Orders 24 hr Category Date Time Status Patient Status [ADT] Routine ADT 07/02/20 15:06 Active CULTURE BLOOD [BC] Stat Lab 07/02/20 14:35 Received CULTURE BLOOD [BC] Stat Lab 07/02/20 14:55 Received Menthol [[place] Sugar Free] Med 07/02/20 16:05 Active 1 cora PO ASDIRECTED PRN Blood Culture x2 Reflex Set [OM.PC] Stat Oth 07/02/20 14:22 Ordered EKG 12 Lead [EK] Urgent Ther 07/02/20 11:53 Stop Req Medication Orders Menthol ([place] Sugar Free) 1 cora PO ASDIRECTED PRN PRN Reason: dry mouth Last Admin: 07/02/20 16:12 Dose: 1 cora Documented by: CHERI Assessment/Plan Comment:: History of present illness 75-year-old female is admitted into [facility] acute care status due to pneumonia. Patient was in her normal state of relatively good health until last night when she woke up coughing quite a bit with significant sore throat and so me shortness of breath. Pertinent ED findings/work-up CXR: Lung base opacity with RML no involvement WBCs, 17,000, neutrophilia Covid 19-Neg Primary hospital problems Pneumonia, POA, CAP, RML Disposition/overall plan --Inpatient admission for IV antibiotics, add Azithromycin, Likely short stay qSOFA 0/3. Monitor her resp status and hydration status, No iv fluids needed as no dehydration and taking orals well. Encourage PO Fluids. blood cultures pending, monitor inflammatory markers, labs in am. Pharmacy for coumadin/INR management. HOLD metformin. - Mortality Measure Prognosis:: Good
[2020-07-02] MEDS ORDERED: Warfarin 5 MG Tab PO SCH (18:00)
[2020-07-02] MEDS ORDERED: Azithromycin 500 MG in Sodium Chloride 0.9% 250 ML IV SCH (18:00)
[2020-07-02] MEDS ORDERED: Loratadine 10 MG Tab PO PRN (18:14)
[2020-07-02] MEDS ORDERED: Sodium Chloride 0.9% 50 ML IV SCH (18:15)
[2020-07-02] MEDS: Omeprazole 20 MG Cap.CR PO SCH (18:41)
[2020-07-02] MEDS ORDERED: Calcium Carbonate 500 MG Tab.Chew PO PRN (19:56)
[2020-07-02] MEDS: busPIRone 10 MG Tab PO SCH (20:23)
[2020-07-02] MEDS ORDERED: Non-Formulary Medication 1 Each (Pravastatin Sodium 40 MG) PO SCH (21:00)
[2020-07-02] MEDS ORDERED: Melatonin 3 MG Tab PO SCH (21:00)
[2020-07-02] MEDS ORDERED: rOPINIRole 1 MG Tab PO SCH (21:00)
[2020-07-03] MEDS: Omeprazole 20 MG Cap.CR PO SCH (07:21)
[2020-07-03] MEDS ORDERED: Insulin Glargine,Human Rec. Analog 100 Units/ML 3 ML Pen SUBCUT SCH (07:30)
[2020-07-03] MEDS: busPIRone 10 MG Tab PO SCH (08:11)
[2020-07-03 08:12] VITALS: BP 158/74; PULSE 74
[2020-07-03] MEDS ORDERED: cefTRIAXone 1 GM Vial IVPUSH ONE (08:47)
[2020-07-03] MEDS ORDERED: Escitalopram 10 MG Tab PO SCH (09:00)
[2020-07-03] MEDS ORDERED: Metoprolol Succinate 25 MG Tab.ER PO SCH (09:00)
[2020-07-03] MEDS ORDERED: Diltiazem 240 MG Cap.ER PO SCH (09:00)
[2020-07-03] MEDS ORDERED: rOPINIRole 1 MG Tab PO SCH (09:00)
[2020-07-03] MEDS ORDERED: Phytonadione 100 MCG Tab PO SCH (09:00)
[2020-07-03] MEDS ORDERED: Hydrochlorothiazide 25 MG Tab PO SCH (09:00)
--- NOTE | 2020-07-03 09:39 | PCM.DCSUM1 ---
Discharge Summary - Hospital Course Diagnosis: Stroke: No - Discharge Data Discharge Date: 07/03/20 Discharge Disposition: Home, Self-Care 01 Condition: Good - Referral to Home Health Primary Care Physician: Mark Ramsay NP - Patient Instructions Diet: Usual Diet as Tolerated Activity: As Tolerated, Cough & Deep Breathe Showering/Bathing: May Shower Notify Provider of: Fever Other/Special Instructions: Report any shortness of breath, fever. Cough may linger for a month after pneumonia. Cover your cough. Good hand washing. Wear mask if coughing - Discharge Plan *PRESCRIPTION DRUG MONITORING PROGRAM REVIEWED*: Yes (in [facility]) *COPY OF PRESCRIPTION DRUG MONITORING REPORT IN PATIENT MU: Yes Prescriptions/Med Rec: Doxycycline [Vibra-Tabs] 100 mg PO Q12HR #12 tab Home Medications: Home Meds Escitalopram [Lexapro] 10 mg PO DAILY 11/10/13 [History] Esomeprazole [NexIUM] 40 mg PO BIDAC 04/21/17 [History] Pravastatin [Pravachol] 40 mg PO BEDTIME 04/21/17 [History] Warfarin [Coumadin] 5 mg PO SUTUWETHSA 09/30/17 [History] Cyanocobalamin (Vitamin B-12) [Cyanocobalamin Injection] 1,000 mcg IM Q30D 08/28/18 [History] Hydrocodone/Acetaminophen [Hydrocodone-Acetamin 5-325 mg] 1 tab PO BID PRN 08/28/18 [History] Metoprolol Succinate [Toprol XL] 25 mg PO DAILY 08/28/18 [History] hydroCHLOROthiazide [Hydrochlorothiazide] 25 mg PO DAILY 08/28/18 [History] Warfarin [Coumadin] 7.5 mg PO MOFR 08/29/18 [History] busPIRone [Buspar] 15 mg PO TID 10/14/18 [History] Acetaminophen [Tylenol] 650 mg PO Q4H PRN 02/28/19 [History] Loratadine 10 mg PO DAILY PRN 02/28/19 [History] Phytonadione [Vitamin K] 100 mcg PO DAILY 02/28/19 [History] Alum Hydroxide/Mag Carbonate [Acid Gone] 2 tab PO Q4H PRN 07/02/20 [History] Diltiazem [Tiazac] 240 mg PO DAILY 07/02/20 [History] Dulaglutide [Trulicity] 0.5 ml SQ TU 07/02/20 [History] Insulin Degludec [Tresiba] 10 unit SQ 0730 07/02/20 [History] Iron Polysaccharide Complex [Poly-Iron] 1 cap PO DAILY 07/02/20 [History] Magnesium Hydroxide [Milk of Magnesia] 30 ml PO BEDTIME PRN 07/02/20 [History] Melatonin 3 mg PO BEDTIME 07/02/20 [History] Sennosides/Docusate Sodium [Senna Plus 8.6-50 mg Tablet] 1 tab PO BID 07/02/20 [History] Vit A/Vit C/Vit E/Zinc/Copper [Preservision Areds Softgel] 1 cap PO BID 07/02/20 [History] metFORMIN [Glucophage] 1,000 mg PO 1645 07/02/20 [History] metFORMIN [Glucophage] 500 mg PO 0645 07/02/20 [History] rOPINIRole [Requip] 1 mg PO BEDTIME 07/02/20 [History] rOPINIRole [Requip] 1 mg PO DAILY 07/02/20 [History] Doxycycline [Vibra-Tabs] 100 mg PO Q12HR #12 tab 07/03/20 [Rx] Forms: ED Department Discharge Referrals: Radha Pepe, RETAIL SUPERVISOR [Nurse Practitioner] - - Discharge Summary/Plan Comment DC Time >30 min.: No Discharge Summary/Plan Comment: Final diagnosis Pneumonia, POA, CAP, RML History summary 75-year-old female was admitted overnight to [facility] acute care status due to pneumonia. Patient was in her normal relatively good health state of health until the night before admission when she woke up with a considerable cough and scant mucus production and some shortness of breath and sore throat. Pertinent ED findings/work-up CXR: Lung base opacity with RML involvement WBCs, 17,000, neutrophilia T: 100, MAP 108, O2 94% Covid 19-Neg Hospital course Patient's hospital overnight course went well. I rounded on the patient the evening of admission and she was walking around in her room, afebrile, felt much better with good oxygen saturations. Temperature was coming down. She was tolerating fluids and had minimal scant sputum cough. Ceftriaxone was given in the ED and prior to discharge, added Macrolid, qSOFA 0/3. Overnight her respiratory status and hydration status were monitored she needed no IV fluids as she had no vomiting and was drinking orals. blood cultures pending, inflammatory indices markedly improved. Her metformin was held. She was deemed ready for discharged back to her community with self-care in close follow-up instructions. Medication changes/adjustments/additions on discharge Doxycycline 100 mg by mouth 6 days (newly added) Discharge instructions Report any shortness of breath, fever Cough may linger for a month after pneumonia Cover your cough Good hand washing Wear mask if coughing - General Info Functional Status: Reports: Pain Controlled - Review of Systems General: Reports: No Symptoms HEENT: Reports: No Symptoms Pulmonary: Reports: Cough. Denies: Sputum, Wheezing Cardiovascular: Denies: Chest Pain, Palpitations Gastrointestinal: Reports: No Symptoms Genitourinary: Reports: No Symptoms Musculoskeletal: Reports: No Symptoms Skin: Reports: Bruising Neurological: Denies: Confusion Psychiatric: Denies: Confusion - Patient Data Vitals - Most Recent: Last Vital Signs Temp 97.8 F 07/03/20 06:05 Pulse 74 07/03/20 08:11 Resp 18 07/03/20 06:05 BP 158/74 H 07/03/20 08:11 Pulse Ox 95 07/03/20 06:05 Weight - Most Recent: 181 lb 8 oz I&O - Last 24 hours: Intake & Output 07/02/20 07/03/20 07/03/20 22:59 06:59 14:59 Intake Total 100 300 Balance 100 300 Lab Results - Last 24 hrs: Laboratory Results - last 24 hr 07/02/20 07/02/20 07/02/20 Range/Units 11:43 11:52 11:52 WBC 17.12 H (5.00-10.00) 10^3/uL RBC 3.86 (3.80-5.50) 10^6/uL Hgb 11.1 L D (12.0-16.0) g/dL Hct 34.2 L (37.0-47.0) % MCV 88.6 D (82.0-92.0) fL MCH 28.8 (27.0-31.0) pg MCHC 32.5 (32.0-36.0) g/dL RDW 15.3 H (11.5-14.5) % Plt Count 359 D (150-400) 10^3/uL MPV 9.6 (7.4-10.4) fL Immature Gran % (Auto) 0.2 (0.0-5.0) % Neut % (Auto) 74.9 H (50.0-70.0) % Lymph % (Auto) 14.4 L (20.0-40.0) % [place] % (Auto) 9.3 H (2.0-8.0) % Eos % (Auto) 0.8 L (1.0-3.0) % Baso % (Auto) 0.4 (0.0-1.0) % Neut # (Auto) 12.82 H (2.50-7.00) 10^3/uL Lymph # (Auto) 2.46 (1.00-4.00) 10^3/uL [place] # (Auto) 1.60 H (0.10-0.80) 10^3/uL Eos # (Auto) 0.14 (0.10-0.30) 10^3/uL Baso # (Auto) 0.06 (0.00-0.10) 10^3/uL Immature Gran # (Auto) 0.04 (0.00-0.50) 10^3/uL ESR (0-20) mm/hr PT (9.2-11.2) SEC INR (0.9-1.1) D-Dimer, Quantitative (<400) ng/mL Sodium 142 (136-145) mmol/L Potassium 4.5 (3.3-5.3) mmol/L Chloride 105 (98-115) mmol/L Carbon Dioxide 24.9 (21.0-32.0) mmol/L Anion Gap 16.6 H (5-15) mmol/L BUN 25 (6-25) mg/dL Creatinine 1.09 (0.51-1.17) mg/dL Est Cr Clr Drug Dosing 40.46 mL/min Estimated GFR (MDRD) 49 mL/min Glucose 131 H (75 - 99) mg/dL POC Glucose (74-106) mg/dl Calcium 8.4 L (8.7-10.3) mg/dL Total Bilirubin 0.3 (0.2-1.0) mg/dL AST 24 (15-37) U/L ALT 33 (12-78) U/L Alkaline Phosphatase 82 (46-116) IU/L Creatine Kinase 50 (26-276) U/L CK-MB (CK-2) 0.60 (0.00-4.30) ng/mL Troponin I < 0.04 (0.00-0.070) ng/mL B-Natriuretic Peptide 59 (0-100) pg/mL Total Protein 7.1 (6.4-8.2) g/dL Albumin 3.31 (3.00-4.80) g/dL COVID-19 (JEZ) Negative (NEGATIVE) 07/02/20 07/02/20 07/02/20 Range/Units 11:53 11:55 18:54 WBC (5.00-10.00) 10^3/uL RBC (3.80-5.50) 10^6/uL Hgb (12.0-16.0) g/dL Hct (37.0-47.0) % MCV (82.0-92.0) fL MCH (27.0-31.0) pg MCHC (32.0-36.0) g/dL RDW (11.5-14.5) % Plt Count (150-400) 10^3/uL MPV (7.4-10.4) fL Immature Gran % (Auto) (0.0-5.0) % Neut % (Auto) (50.0-70.0) % Lymph % (Auto) (20.0-40.0) % [place] % (Auto) (2.0-8.0) % Eos % (Auto) (1.0-3.0) % Baso % (Auto) (0.0-1.0) % Neut # (Auto) (2.50-7.00) 10^3/uL Lymph # (Auto) (1.00-4.00) 10^3/uL [place] # (Auto) (0.10-0.80) 10^3/uL Eos # (Auto) (0.10-0.30) 10^3/uL Baso # (Auto) (0.00-0.10) 10^3/uL Immature Gran # (Auto) (0.00-0.50) 10^3/uL ESR 19 (0-20) mm/hr PT 18.3 H (9.2-11.2) SEC INR 1.8 H (0.9-1.1) D-Dimer, Quantitative < 100 (<400) ng/mL Sodium (136-145) mmol/L Potassium (3.3-5.3) mmol/L Chloride (98-115) mmol/L Carbon Dioxide (21.0-32.0) mmol/L Anion Gap (5-15) mmol/L BUN (6-25) mg/dL Creatinine (0.51-1.17) mg/dL Est Cr Clr Drug Dosing mL/min Estimated GFR (MDRD) mL/min Glucose (75 - 99) mg/dL POC Glucose (74-106) mg/dl Calcium (8.7-10.3) mg/dL Total Bilirubin (0.2-1.0) mg/dL AST (15-37) U/L ALT (12-78) U/L Alkaline Phosphatase (46-116) IU/L Creatine Kinase (26-276) U/L CK-MB (CK-2) (0.00-4.30) ng/mL Troponin I (0.00-0.070) ng/mL B-Natriuretic Peptide (0-100) pg/mL Total Protein (6.4-8.2) g/dL Albumin (3.00-4.80) g/dL COVID-19 (JEZ) (NEGATIVE) 07/03/20 07/03/20 07/03/20 Range/Units 06:11 07:15 07:15 WBC 12.30 H (5.00-10.00) 10^3/uL RBC 3.82 (3.80-5.50) 10^6/uL Hgb 11.0 L (12.0-16.0) g/dL Hct 34.1 L (37.0-47.0) % MCV 89.3 (82.0-92.0) fL MCH 28.8 (27.0-31.0) pg MCHC 32.3 (32.0-36.0) g/dL RDW 15.3 H (11.5-14.5) % Plt Count 379 (150-400) 10^3/uL MPV 10.1 (7.4-10.4) fL Immature Gran % (Auto) 0.3 (0.0-5.0) % Neut % (Auto) 64.0 (50.0-70.0) % Lymph % (Auto) 18.6 L (20.0-40.0) % [place] % (Auto) 11.1 H (2.0-8.0) % Eos % (Auto) 5.3 H (1.0-3.0) % Baso % (Auto) 0.7 (0.0-1.0) % Neut # (Auto) 7.87 H (2.50-7.00) 10^3/uL Lymph # (Auto) 2.29 (1.00-4.00) 10^3/uL [place] # (Auto) 1.37 H (0.10-0.80) 10^3/uL Eos # (Auto) 0.65 H (0.10-0.30) 10^3/uL Baso # (Auto) 0.08 (0.00-0.10) 10^3/uL Immature Gran # (Auto) 0.04 (0.00-0.50) 10^3/uL ESR (0-20) mm/hr PT 19.8 H (9.2-11.2) SEC INR 2.0 H (0.9-1.1) D-Dimer, Quantitative (<400) ng/mL Sodium (136-145) mmol/L Potassium (3.3-5.3) mmol/L Chloride (98-115) mmol/L Carbon Dioxide (21.0-32.0) mmol/L Anion Gap (5-15) mmol/L BUN (6-25) mg/dL Creatinine (0.51-1.17) mg/dL Est Cr Clr Drug Dosing mL/min Estimated GFR (MDRD) mL/min Glucose (75 - 99) mg/dL POC Glucose 123 H (74-106) mg/dl Calcium (8.7-10.3) mg/dL Total Bilirubin (0.2-1.0) mg/dL AST (15-37) U/L ALT (12-78) U/L Alkaline Phosphatase (46-116) IU/L Creatine Kinase (26-276) U/L CK-MB (CK-2) (0.00-4.30) ng/mL Troponin I (0.00-0.070) ng/mL B-Natriuretic Peptide (0-100) pg/mL Total Protein (6.4-8.2) g/dL Albumin (3.00-4.80) g/dL COVID-19 (JEZ) (NEGATIVE) Med Orders - Current: Current Medications Acetaminophen (Tylenol) 650 mg PO Q4H PRN PRN Reason: Pain Buspirone HCl (Buspar) 15 mg PO TID [facility] Last Admin: 07/03/20 08:11 Dose: 15 mg Documented by: Calcium Carbonate/Glycine (Tums) 1,000 mg PO Q4H PRN PRN Reason: Indigestion Diltiazem HCl (Dilacor Xr) 240 mg PO DAILY [facility] Last Admin: 07/03/20 08:11 Dose: 240 mg Documented by: Escitalopram Oxalate (Lexapro) 10 mg PO DAILY [facility] Last Admin: 07/03/20 08:11 Dose: 10 mg Documented by: Hydrochlorothiazide (Hydrochlorothiazide) 25 mg PO DAILY [facility] Last Admin: 07/03/20 08:10 Dose: 25 mg Documented by: Azithromycin 500 mg/ Sodium (Chloride) 250 mls @ 250 mls/hr IV Q24H [facility] Last Admin: 07/02/20 19:00 Dose: 250 mls/hr Documented by: Sodium Chloride (Normal Saline) 50 mls @ 100 mls/hr IV ASDIRECTED [facility] Last Admin: 07/02/20 20:24 Dose: 100 mls/hr Documented by: Insulin Glargine (Lantus Solostar) 10 units SUBCUT 0730 [facility] Last Admin: 07/03/20 07:22 Dose: 10 injection Documented by: Loratadine (Claritin) 10 mg PO DAILY PRN PRN Reason: seasonal allergic rhinitis Magnesium Hydroxide (Milk Of Magnesia) 30 ml PO BEDTIME PRN PRN Reason: Constipation Melatonin (Melatonin) 3 mg PO BEDTIME [facility] Last Admin: 07/02/20 20:23 Dose: 3 mg Documented by: Menthol (Kendall Sugar Free) 1 cora PO ASDIRECTED PRN PRN Reason: dry mouth Last Admin: 07/02/20 20:38 Dose: 1 cora Documented by: Metoprolol Succinate (Toprol Xl) 25 mg PO DAILY [facility] Last Admin: 07/03/20 08:11 Dose: 25 mg Documented by: Non-Formulary Medication (Pravastatin Sodium) 40 mg PO BEDTIME [facility] Omeprazole (Omeprazole) 20 mg PO BIDAC [facility] Last Admin: 07/03/20 07:21 Dose: 20 mg Documented by: Phytonadione (Vitamin K) 100 mcg PO DAILY [facility] Ropinirole HCl (Requip) 1 mg PO BEDTIME [facility] Last Admin: 07/02/20 20:24 Dose: 1 mg Documented by: Ropinirole HCl (Requip) 1 mg PO DAILY [facility] Last Admin: 07/03/20 08:11 Dose: 1 mg Documented by: Senna/Docusate Sodium (Senna Plus) 1 tab PO BID [facility] Last Admin: 07/03/20 08:11 Dose: 1 tab Documented by: Warfarin Sodium (Coumadin) 5 mg PO SUTUWETHSA [facility] Last Admin: 07/02/20 18:41 Dose: 5 mg Documented by: Warfarin Sodium (Coumadin) 7.5 mg PO MOFR [facility] Warfarin Sodium (Pharmacy To Dose - Warfarin) 1 dose .XX ASDIRECTED [facility] Discontinued Medications Ceftriaxone Sodium (Rocephin) 1 gm IVPUSH ONETIME ONE Stop: 07/02/20 14:01 Last Admin: 07/02/20 14:53 Dose: 1 gm Documented by: Ceftriaxone Sodium (Rocephin) 1 gm IVPUSH ONETIME ONE Stop: 07/03/20 08:48 Last Admin: 07/03/20 09:07 Dose: 1 gm Documented by: Non-Formulary Medication (Alum Hydroxide/Mag Carbonate) 2 tab PO Q4H PRN PRN Reason: indigestion or heartburn - Exam Quality Assessment: Denies: Supplemental Oxygen Neck: Reports: Supple Lungs: Reports: Clear to Auscultation, Normal Respiratory Effort. Denies: Crackles, Rales, Rhonchi, Wheezing Cardiovascular: Reports: Irregular Rhythm GI/Abdominal Exam: Soft Skin: Reports: Dry Neurological: Reports: Normal Gait Psy/Mental Status: Reports: Alert, Normal Affect, Normal Mood
[2020-07-05] MEDS ORDERED: Warfarin 5 MG Tab PO SCH (18:00)
== END 2020-07-03 12:30 | disposition home or self-care (01) | DRG 195 ==
LOC: KA.ED 11:20 → KA.MS 15:06
PROVIDERS: ADMIT Nurse Practitioner Family; ATTEND Nurse Practitioner Family
DX: J18.9 Pneumonia, unspecified organism (principal); H54.7 Unspecified visual loss; H91.93 Unspecified hearing loss, bilateral; K21.9 Gastro-esophageal reflux disease without esophagitis; F32.9 Major depressive disorder, single episode, unspecified; F41.0 Panic disorder [episodic paroxysmal anxiety]; Z86.718 Personal history of other venous thrombosis and embolism; E11.9 Type 2 diabetes mellitus without complications; R13.10 Dysphagia, unspecified; D64.9 Anemia, unspecified; M25.519 Pain in unspecified shoulder; G25.81 Restless legs syndrome; E78.00 Pure hypercholesterolemia, unspecified; Z20.828 Contact with and (suspected) exposure to other viral communicable diseases; E53.8 Deficiency of other specified B group vitamins; E61.1 Iron deficiency; Z98.49 Cataract extraction status, unspecified eye; I48.91 Unspecified atrial fibrillation; I10 Essential (primary) hypertension; Z98.890 Other specified postprocedural states; G89.29 Other chronic pain; Z91.018 Allergy to other foods; Z88.8 Allergy status to other drugs, medicaments and biological substances; Z91.013 Allergy to seafood; Z79.01 Long term (current) use of anticoagulants; Z79.899 Other long term (current) drug therapy; Z79.4 Long term (current) use of insulin; Z87.891 Personal history of nicotine dependence; Z90.49 Acquired absence of other specified parts of digestive tract; Z90.710 Acquired absence of both cervix and uterus
CPT/HCPCS: 36415; 71046; 80053; 82550; 82553; 83880; 84484; 85025; 85379; 85610; 87040 ×2; J0696; U0002; 82962; 85651; 93005; 96374; 99284; 99285-25; A9270-GY; J0456; J1815-GY; J7050

== ENCOUNTER 2021-09-10 06:52 | Day surgery (SDC) | payer MEDICARE, MEDICAID ==
[2021-09-10] MEDS ORDERED: Sodium Chloride 0.9% 10 ML Syringe FLUSH PRN (07:00)
[2021-09-10] MEDS ORDERED: Sodium Chloride 0.9% 1,000 ML IV SCH (07:00)
[2021-09-10] MEDS ORDERED: Propofol 200 MG/20 ML SDV ONE (08:15)
--- NOTE | 2021-09-10 09:19 | PCM.OPNOTE ---
- General Post-Op/Procedure Note Date of Surgery/Procedure: 09/10/21 Operative Procedure(s): Colonoscopy and polypectomy at 30 cm. Anesthesia Technique: MAC, Moderate Sedation Primary Surgeon: Augustina Young Complications: None Condition: Good Free Text/Narrative:: INFORMED CONSENT: Patient is here today for elective colonoscopy. All aspects of this procedure have been discussed with the patient. All possible complications also, including possibility of perforation, infection, pain, bleeding and unknown complications. In the event of perforation patient may need to have abdominal exploration, colon resection, colostomy and even was discussed. Anesthetic complications were handled by anesthesia department. The patient understands fully well. Patient did not have any further questions for me at the end of my interview. The patient wishes for me to proceed. PREOPERATIVE DIAGNOSIS/INDICATIONS: [Constipation and rectal bleeding] POSTOPERATIVE DIAGNOSIS: [Multiple diverticulosis of the sigmoid colon, prominent internal hemorrhoids, polyp at 30 cm.] INSTRUMENT USED: Olympus videocolonoscope. ASA CLASSIFICATION: [2] ANESTHESIA: Continuous EKG, oximetry and intermittent blood pressure and respiratory monitoring were performed throughout the procedure. IV Versed and Fentanyl were administered. PROCEDURE PERFORMED: Colonoscopy POSITIONS OF PATIENT: Left lateral. RECTUM: Normal. SIGMOID COLON: Multiple diverticuli were seen. A small polyp was noted at centimeters. This was removed using the cold biopsy forceps. A resolution clip was placed to prevent post polypectomy bleeding as the patient will be started on anticoagulants.. DESCENDING COLON: Normal. SPLENIC FLEXURE: Normal. TRANSVERSE COLON: Normal. HEPATIC FLEXURE: Normal. ASCENDING COLON: Normal. CECUM: Normal. ILEOCECAL VALVE: Normal. BIOPSY: None. TOLERANCE: Excellent. COMPLICATIONS: None. Final diagnosis: Small polyp at 30 cm, multiple sigmoid colon diverticulosis, otherwise negative.
[2021-09-10 10:19] VITALS: BP 149/80; PULSE 73
== END 2021-09-10 10:30 | disposition home or self-care (01) ==
LOC: KA.SDS 06:52
PROVIDERS: ATTEND Family Medicine
DX: D12.5 Benign neoplasm of sigmoid colon (principal); K57.31 Diverticulosis of large intestine without perforation or abscess with bleeding; K59.00 Constipation, unspecified; K64.8 Other hemorrhoids; G25.81 Restless legs syndrome; D50.9 Iron deficiency anemia, unspecified; D64.9 Anemia, unspecified; F41.9 Anxiety disorder, unspecified; G89.4 Chronic pain syndrome; I48.91 Unspecified atrial fibrillation; E53.8 Deficiency of other specified B group vitamins; N18.30 Chronic kidney disease, stage 3 unspecified; E11.22 Type 2 diabetes mellitus with diabetic chronic kidney disease; I13.0 Hypertensive heart and chronic kidney disease with heart failure and stage 1 through stage 4 chronic kidney disease, or unspecified chronic kidney disease; I50.9 Heart failure, unspecified; E78.5 Hyperlipidemia, unspecified; E66.9 Obesity, unspecified; Z90.49 Acquired absence of other specified parts of digestive tract; Z79.899 Other long term (current) drug therapy; Z91.013 Allergy to seafood; Z88.8 Allergy status to other drugs, medicaments and biological substances; Z91.018 Allergy to other foods; Z98.890 Other specified postprocedural states; Z87.891 Personal history of nicotine dependence; Z68.28 Body mass index [BMI] 28.0-28.9, adult
CPT/HCPCS: 00811; 36415; 82947; 85610; 88305; J2704; J7030

== ENCOUNTER 2022-03-14 11:34 | Emergency (ER) | payer OTHER, MEDICARE, MEDICAID ==
[2022-03-14 11:51] VITALS: BP 152/80; PULSE 78
== END 2022-03-14 12:55 | disposition home or self-care (01) ==
LOC: KA.ED 11:34
DX: S63.501A Unspecified sprain of right wrist, initial encounter (principal); S60.211A Contusion of right wrist, initial encounter; I48.91 Unspecified atrial fibrillation; E78.00 Pure hypercholesterolemia, unspecified; I10 Essential (primary) hypertension; E11.9 Type 2 diabetes mellitus without complications; K21.9 Gastro-esophageal reflux disease without esophagitis; Z91.018 Allergy to other foods; Z91.013 Allergy to seafood; Z88.8 Allergy status to other drugs, medicaments and biological substances; Z91.041 Radiographic dye allergy status; Z79.01 Long term (current) use of anticoagulants; Z79.4 Long term (current) use of insulin; Z79.899 Other long term (current) drug therapy; W01.0XXA Fall on same level from slipping, tripping and stumbling without subsequent striking against object, initial encounter
CPT/HCPCS: 71101-RT; 73090-RT; 73100-RT; 99283

== ENCOUNTER 2022-08-17 14:03 | Emergency (ER) | payer MEDICARE, MEDICAID | END 2022-08-17 16:30 | LOC: KA.ED 14:03 | DX: R04.0 Epistaxis (principal) | CPT/HCPCS: 85610; 99283 ==

== ENCOUNTER 2022-08-19 10:11 | Emergency (ER) | payer MEDICARE, MEDICAID ==
[2022-08-19] MEDS ORDERED: Acetaminophen/HYDROcodone 325-5 MG Tab PO ONE (10:15)
== END 2022-08-19 12:03 ==
LOC: KA.ED 10:11
DX: M25.461 Effusion, right knee (principal); Z79.01 Long term (current) use of anticoagulants; W18.39XA Other fall on same level, initial encounter
CPT/HCPCS: 72100; 73502; 73560; 99283; A9270

== ENCOUNTER 2022-09-20 20:35 | Inpatient (IN) | payer MEDICARE, MEDICAID ==
[2022-09-20] MEDS ORDERED: Ketorolac 30 MG/ML SDV IVPUSH ONE (21:47)
[2022-09-20] MEDS ORDERED: HYDROmorphone 1 MG/ML Syringe IVPUSH ONE (21:47)
[2022-09-20 23:38] LABS: ANION GAP 18.6 mmol/L (5-15)
[2022-09-20] MEDS ORDERED: busPIRone 10 MG Tab PO SCH (23:55)
[2022-09-20] MEDS ORDERED: Melatonin 3 MG Tab PO STA (23:55)
[2022-09-20] MEDS ORDERED: busPIRone 10 MG Tab PO ONE (23:56)
[2022-09-21] MEDS: HYDROmorphone 1 MG/ML Syringe IVPUSH PRN ×2 (04:32→09:16)
[2022-09-21] MEDS ORDERED: Albuterol 8 GM Inhaler INH PRN (09:52)
[2022-09-21] MEDS ORDERED: Acetaminophen 325 MG Tab PO PRN (09:52)
[2022-09-21] MEDS ORDERED: Acetaminophen/HYDROcodone 325-5 MG Tab PO PRN (09:55)
[2022-09-21] MEDS ORDERED: Magnesium Hydroxide 400 MG/5 ML Susp 30 ML Cup PO PRN (09:55)
[2022-09-21] MEDS ORDERED: PROMETHAZINE 25 MG PO PRN (09:55)
[2022-09-21] MEDS ORDERED: Loratadine 10 MG Tab PO PRN (10:00)
[2022-09-21] MEDS ORDERED: Calcium Carbonate 500 MG Tab.Chew PO PRN (10:27)
[2022-09-21] MEDS: metFORMIN 500 MG Tab PO SCH ×2 (10:32→20:26)
[2022-09-21] MEDS: Pantoprazole 40 MG Tab.CR PO SCH ×2 (10:33→17:33)
[2022-09-21] MEDS: Phytonadione 100 MCG Tab PO SCH (10:33)
[2022-09-21] MEDS: Escitalopram 10 MG Tab PO SCH (10:33)
[2022-09-21] MEDS: Diltiazem 240 MG Cap.ER PO SCH (10:33)
[2022-09-21] MEDS: Iron Polysaccharides Complex 150 MG Cap PO SCH (10:33)
[2022-09-21] MEDS: rOPINIRole 1 MG Tab PO SCH (10:33)
[2022-09-21] MEDS: Metoprolol Succinate 25 MG Tab.ER PO SCH (10:33)
[2022-09-21] MEDS: busPIRone 10 MG Tab PO SCH ×3 (10:33→20:25)
[2022-09-21] MEDS ORDERED: Warfarin 5 MG Tab PO SCH (11:00)
[2022-09-21] MEDS ORDERED: Polyethylene Glycol 3350 Powder 17 GM Packet PO PRN (11:45)
[2022-09-21] MEDS: Acetaminophen 325 MG Tab PO SCH ×2 (13:59→20:27)
[2022-09-21] MEDS ORDERED: Ondansetron 4 MG/2 ML SDV IVPUSH PRN (17:11)
[2022-09-21] MEDS: Insulin Glargine,Hum.Rec.Anlog 100 UNIT/ML 3 ML Pen SUBCUT SCH (20:25)
[2022-09-21] MEDS: Pravastatin 20 MG Tab PO SCH (20:25)
[2022-09-21] MEDS: Melatonin 3 MG Tab PO SCH (20:26)
[2022-09-21] MEDS: Acetaminophen/HYDROcodone 325-5 MG Tab PO PRN (20:26)
[2022-09-22] MEDS: Acetaminophen/HYDROcodone 325-5 MG Tab PO PRN ×2 (05:29→17:25)
[2022-09-22] MEDS: Pantoprazole 40 MG Tab.CR PO SCH ×3 (05:49→17:25)
[2022-09-22 07:19] LABS: ANION GAP 11.9 mmol/L (5-15)
[2022-09-22] MEDS: Acetaminophen 325 MG Tab PO SCH ×3 (08:36→20:17)
[2022-09-22] MEDS: Cholecalciferol (Vitamin D3) 25 MCG Tab PO SCH (08:38)
[2022-09-22] MEDS: rOPINIRole 1 MG Tab PO SCH (08:39)
[2022-09-22] MEDS: Metoprolol Succinate 25 MG Tab.ER PO SCH (08:40)
[2022-09-22] MEDS: Diltiazem 240 MG Cap.ER PO SCH (08:40)
[2022-09-22] MEDS: metFORMIN 500 MG Tab PO SCH ×2 (08:40→20:18)
[2022-09-22] MEDS: Phytonadione 100 MCG Tab PO SCH (08:41)
[2022-09-22] MEDS: Escitalopram 10 MG Tab PO SCH (08:41)
[2022-09-22] MEDS: Hydrochlorothiazide 25 MG Tab PO SCH (08:41)
[2022-09-22] MEDS: Iron Polysaccharides Complex 150 MG Cap PO SCH (08:41)
[2022-09-22] MEDS: busPIRone 10 MG Tab PO SCH ×3 (08:42→20:16)
[2022-09-22] MEDS: Docusate Sodium 100 MG Cap PO PRN (13:57)
[2022-09-22] MEDS: Insulin Glargine,Hum.Rec.Anlog 100 UNIT/ML 3 ML Pen SUBCUT SCH (20:14)
[2022-09-22] MEDS: Melatonin 3 MG Tab PO SCH (20:18)
[2022-09-22] MEDS: Pravastatin 20 MG Tab PO SCH (20:19)
[2022-09-23] MEDS: Pantoprazole 40 MG Tab.CR PO SCH (07:12)
[2022-09-23 07:33] LABS: ANION GAP 11.8 mmol/L (5-15)
[2022-09-23] MEDS: metFORMIN 500 MG Tab PO SCH (08:45)
[2022-09-23] MEDS: Cholecalciferol (Vitamin D3) 25 MCG Tab PO SCH (08:45)
[2022-09-23] MEDS: Phytonadione 100 MCG Tab PO SCH (08:45)
[2022-09-23] MEDS: busPIRone 10 MG Tab PO SCH (08:46)
[2022-09-23] MEDS: Iron Polysaccharides Complex 150 MG Cap PO SCH (08:47)
[2022-09-23] MEDS: rOPINIRole 1 MG Tab PO SCH (08:47)
[2022-09-23] MEDS: Escitalopram 10 MG Tab PO SCH (08:47)
[2022-09-23] MEDS: Acetaminophen 325 MG Tab PO SCH (08:48)
[2022-09-23] MEDS: Diltiazem 240 MG Cap.ER PO SCH (08:49)
[2022-09-23] MEDS: Metoprolol Succinate 25 MG Tab.ER PO SCH (08:50)
[2022-09-23] MEDS: Docusate Sodium 100 MG Cap PO PRN (08:57)
[2022-09-23 08:58] VITALS: BP 137/58; PULSE 79
[2022-09-23] MEDS: Hydrochlorothiazide 25 MG Tab PO SCH (08:58)
[2022-09-23] MEDS ORDERED: Bisacodyl 5 MG Tab PO PRN (09:50)
[2022-09-23] MEDS ORDERED: Polyethylene Glycol 3350 Powder 17 GM Packet PO SCH (10:00)
[2022-09-23] MEDS ORDERED: Docusate Sodium 100 MG Cap PO SCH (21:00)
== END 2022-09-23 10:44 | disposition swing bed (61) | DRG 563 ==
LOC: KA.ED 20:35 → KA.MS 22:59 → UNDOADMIN 23:00
PROVIDERS: ADMIT Student in an Organized Health Care Education/Training Program; ATTEND Student in an Organized Health Care Education/Training Program
DX: S82.035A Nondisplaced transverse fracture of left patella, initial encounter for closed fracture (principal); I50.32 Chronic diastolic (congestive) heart failure; I13.0 Hypertensive heart and chronic kidney disease with heart failure and stage 1 through stage 4 chronic kidney disease, or unspecified chronic kidney disease; N18.30 Chronic kidney disease, stage 3 unspecified; E11.22 Type 2 diabetes mellitus with diabetic chronic kidney disease; I10 Essential (primary) hypertension; E87.5 Hyperkalemia; E11.9 Type 2 diabetes mellitus without complications; E88.09 Other disorders of plasma-protein metabolism, not elsewhere classified; D50.9 Iron deficiency anemia, unspecified; Z66 Do not resuscitate; I48.91 Unspecified atrial fibrillation; E78.5 Hyperlipidemia, unspecified; K21.9 Gastro-esophageal reflux disease without esophagitis; G47.00 Insomnia, unspecified; G25.81 Restless legs syndrome; M81.0 Age-related osteoporosis without current pathological fracture; E53.9 Vitamin B deficiency, unspecified; J30.9 Allergic rhinitis, unspecified; M25.462 Effusion, left knee; Z79.01 Long term (current) use of anticoagulants; E78.00 Pure hypercholesterolemia, unspecified; Z86.718 Personal history of other venous thrombosis and embolism; Z79.84 Long term (current) use of oral hypoglycemic drugs; Z79.899 Other long term (current) drug therapy; Z90.49 Acquired absence of other specified parts of digestive tract; Z90.710 Acquired absence of both cervix and uterus; Z87.891 Personal history of nicotine dependence; Z88.8 Allergy status to other drugs, medicaments and biological substances; W18.30XA Fall on same level, unspecified, initial encounter
CPT/HCPCS: 36415; 36416; 73562-LT; 80053; 81001; 82550; 82947; 85025; 85610; 96374; 96375; 97161-GP; 99284-25; A9270-GY; J1170; J1885; J2405

== ENCOUNTER 2022-09-23 10:25 | Inpatient (IN) | payer MEDICARE, MEDICAID ==
[~2022-09-23 10:25] MED LIST changes: +Albuterol 8 GM Inhaler INH PRN; +Bisacodyl 5 MG Tab PO PRN; +Calcium Carbonate 500 MG Tab.Chew PO PRN; -EPINEPHrine 1:10,000 1 MG/10 ML Syringe ONE; +Loratadine 10 MG Tab PO PRN; +Ondansetron 4 MG/2 ML SDV IVPUSH PRN; -Propofol 200 MG/20 ML SDV ONE
[2022-09-23] MEDS: Acetaminophen 500 MG Tab PO SCH ×2 (13:37→20:37)
[2022-09-23] MEDS: busPIRone 10 MG Tab PO SCH ×2 (13:38→20:38)
[2022-09-23] MEDS: Pantoprazole 40 MG Tab.CR PO SCH (17:29)
[2022-09-23] MEDS ORDERED: Warfarin 5 MG Tab PO ONE (18:00)
[2022-09-23] MEDS: Insulin Glargine,Hum.Rec.Anlog 100 UNIT/ML 3 ML Pen SUBCUT SCH (20:35)
[2022-09-23] MEDS: Docusate Sodium 100 MG Cap PO SCH (20:38)
[2022-09-23] MEDS: Pravastatin 20 MG Tab PO SCH (20:38)
[2022-09-23] MEDS: metFORMIN 500 MG Tab PO SCH (20:38)
[2022-09-23] MEDS: Melatonin 3 MG Tab PO SCH (20:38)
[2022-09-24] MEDS: Pantoprazole 40 MG Tab.CR PO SCH ×2 (06:34→18:09)
[2022-09-24] MEDS: Acetaminophen 500 MG Tab PO SCH ×4 (06:35→20:51)
[2022-09-24] MEDS: Cholecalciferol (Vitamin D3) 25 MCG Tab PO SCH (08:04)
[2022-09-24] MEDS: Polyethylene Glycol 3350 Powder 17 GM Packet PO SCH (08:04)
[2022-09-24] MEDS: Docusate Sodium 100 MG Cap PO SCH ×2 (08:05→20:54)
[2022-09-24] MEDS: Hydrochlorothiazide 25 MG Tab PO SCH (08:05)
[2022-09-24] MEDS: Diltiazem 240 MG Cap.ER PO SCH (08:05)
[2022-09-24] MEDS: busPIRone 10 MG Tab PO SCH ×3 (08:05→20:52)
[2022-09-24] MEDS: rOPINIRole 1 MG Tab PO SCH (08:05)
[2022-09-24] MEDS: Escitalopram 10 MG Tab PO SCH (08:05)
[2022-09-24] MEDS: metFORMIN 500 MG Tab PO SCH ×2 (08:05→20:52)
[2022-09-24] MEDS: Phytonadione 100 MCG Tab PO SCH (08:06)
[2022-09-24] MEDS: Iron Polysaccharides Complex 150 MG Cap PO SCH (08:06)
[2022-09-24] MEDS: Metoprolol Succinate 25 MG Tab.ER PO SCH (08:06)
[2022-09-24] MEDS: Melatonin 3 MG Tab PO SCH (20:52)
[2022-09-24] MEDS: Pravastatin 20 MG Tab PO SCH (20:54)
[2022-09-24] MEDS: Insulin Glargine,Hum.Rec.Anlog 100 UNIT/ML 3 ML Pen SUBCUT SCH (20:55)
[2022-09-25 07:35] LABS: ANION GAP 11.8 mmol/L (5-15)
[2022-09-25] MEDS: Pantoprazole 40 MG Tab.CR PO SCH ×2 (07:40→16:54)
[2022-09-25] MEDS: Iron Polysaccharides Complex 150 MG Cap PO SCH (09:22)
[2022-09-25] MEDS: Polyethylene Glycol 3350 Powder 17 GM Packet PO SCH (09:22)
[2022-09-25] MEDS: metFORMIN 500 MG Tab PO SCH ×2 (09:22→20:45)
[2022-09-25] MEDS: rOPINIRole 1 MG Tab PO SCH (09:22)
[2022-09-25] MEDS: Cholecalciferol (Vitamin D3) 25 MCG Tab PO SCH (09:22)
[2022-09-25] MEDS: Docusate Sodium 100 MG Cap PO SCH ×2 (09:22→20:47)
[2022-09-25] MEDS: Escitalopram 10 MG Tab PO SCH (09:23)
[2022-09-25] MEDS: Diltiazem 240 MG Cap.ER PO SCH (09:23)
[2022-09-25] MEDS: Phytonadione 100 MCG Tab PO SCH (09:23)
[2022-09-25] MEDS: busPIRone 10 MG Tab PO SCH ×3 (09:23→20:46)
[2022-09-25] MEDS: Hydrochlorothiazide 25 MG Tab PO SCH (09:23)
[2022-09-25] MEDS: Acetaminophen 500 MG Tab PO SCH ×3 (09:23→20:47)
[2022-09-25] MEDS: Metoprolol Succinate 25 MG Tab.ER PO SCH (09:24)
[2022-09-25] MEDS ORDERED: Warfarin 2.5 MG Tab PO SCH (12:30)
[2022-09-25] MEDS: Pravastatin 20 MG Tab PO SCH (20:45)
[2022-09-25] MEDS: Melatonin 3 MG Tab PO SCH (20:47)
[2022-09-25] MEDS: Insulin Glargine,Hum.Rec.Anlog 100 UNIT/ML 3 ML Pen SUBCUT SCH (20:47)
[2022-09-26] MEDS: Pantoprazole 40 MG Tab.CR PO SCH ×3 (06:05→17:52)
[2022-09-26] MEDS: Polyethylene Glycol 3350 Powder 17 GM Packet PO SCH (08:45)
[2022-09-26] MEDS: Hydrochlorothiazide 25 MG Tab PO SCH (08:46)
[2022-09-26] MEDS: Escitalopram 10 MG Tab PO SCH (08:46)
[2022-09-26] MEDS: busPIRone 10 MG Tab PO SCH ×3 (08:46→20:08)
[2022-09-26] MEDS: Iron Polysaccharides Complex 150 MG Cap PO SCH (08:46)
[2022-09-26] MEDS: metFORMIN 500 MG Tab PO SCH ×2 (08:46→20:07)
[2022-09-26] MEDS: Cholecalciferol (Vitamin D3) 25 MCG Tab PO SCH (08:46)
[2022-09-26] MEDS: Phytonadione 100 MCG Tab PO SCH (08:46)
[2022-09-26] MEDS: rOPINIRole 1 MG Tab PO SCH (08:46)
[2022-09-26] MEDS: Acetaminophen 500 MG Tab PO SCH ×3 (08:49→20:08)
[2022-09-26] MEDS: Docusate Sodium 100 MG Cap PO SCH ×2 (08:49→20:08)
[2022-09-26] MEDS: Diltiazem 240 MG Cap.ER PO SCH (08:49)
[2022-09-26] MEDS: Metoprolol Succinate 25 MG Tab.ER PO SCH (08:49)
[2022-09-26] MEDS ORDERED: Warfarin 5 MG Tab PO ONE (18:00)
[2022-09-26] MEDS: Pravastatin 20 MG Tab PO SCH (20:08)
[2022-09-26] MEDS: Melatonin 3 MG Tab PO SCH (20:08)
[2022-09-26] MEDS: Insulin Glargine,Hum.Rec.Anlog 100 UNIT/ML 3 ML Pen SUBCUT SCH (20:09)
[2022-09-27] MEDS: oxyCODONE 5 MG Tab PO PRN ×2 (02:13→21:34)
[2022-09-27] MEDS: Pantoprazole 40 MG Tab.CR PO SCH ×3 (05:54→19:14)
[2022-09-27] MEDS: Acetaminophen 500 MG Tab PO SCH ×3 (09:53→20:28)
[2022-09-27] MEDS: busPIRone 10 MG Tab PO SCH ×3 (09:53→20:22)
[2022-09-27] MEDS: Iron Polysaccharides Complex 150 MG Cap PO SCH (09:53)
[2022-09-27] MEDS: Escitalopram 10 MG Tab PO SCH (09:54)
[2022-09-27] MEDS: Cholecalciferol (Vitamin D3) 25 MCG Tab PO SCH (09:54)
[2022-09-27] MEDS: Polyethylene Glycol 3350 Powder 17 GM Packet PO SCH (09:54)
[2022-09-27] MEDS: metFORMIN 500 MG Tab PO SCH ×2 (09:54→20:26)
[2022-09-27] MEDS: Diltiazem 240 MG Cap.ER PO SCH (09:54)
[2022-09-27] MEDS: Hydrochlorothiazide 25 MG Tab PO SCH (09:55)
[2022-09-27] MEDS: rOPINIRole 1 MG Tab PO SCH (09:55)
[2022-09-27] MEDS: Phytonadione 100 MCG Tab PO SCH (09:55)
[2022-09-27] MEDS: Metoprolol Succinate 25 MG Tab.ER PO SCH (09:55)
[2022-09-27] MEDS: Docusate Sodium 100 MG Cap PO SCH ×2 (09:56→20:23)
[2022-09-27] MEDS ORDERED: Warfarin 2 MG Tab PO ONE (18:00)
[2022-09-27] MEDS: Melatonin 3 MG Tab PO SCH (20:23)
[2022-09-27] MEDS: Pravastatin 20 MG Tab PO SCH (20:24)
[2022-09-27] MEDS: Insulin Glargine,Hum.Rec.Anlog 100 UNIT/ML 3 ML Pen SUBCUT SCH (20:29)
[2022-09-28] MEDS: Pantoprazole 40 MG Tab.CR PO SCH ×2 (05:41→06:32)
[2022-09-28 07:53] LABS: ANION GAP 11.7 mmol/L (5-15)
[2022-09-28] MEDS: busPIRone 10 MG Tab PO SCH (08:24)
[2022-09-28] MEDS: Phytonadione 100 MCG Tab PO SCH (08:25)
[2022-09-28] MEDS: Iron Polysaccharides Complex 150 MG Cap PO SCH (08:25)
[2022-09-28] MEDS: Escitalopram 10 MG Tab PO SCH (08:26)
[2022-09-28] MEDS: Acetaminophen 500 MG Tab PO SCH (08:26)
[2022-09-28] MEDS: Cholecalciferol (Vitamin D3) 25 MCG Tab PO SCH (08:27)
[2022-09-28] MEDS: Metoprolol Succinate 25 MG Tab.ER PO SCH (08:28)
[2022-09-28] MEDS: metFORMIN 500 MG Tab PO SCH (08:28)
[2022-09-28] MEDS: rOPINIRole 1 MG Tab PO SCH (08:28)
[2022-09-28] MEDS: Hydrochlorothiazide 25 MG Tab PO SCH (08:29)
[2022-09-28] MEDS: Diltiazem 240 MG Cap.ER PO SCH (08:29)
[2022-09-28 08:30] VITALS: BP 134/63; PULSE 70
[2022-09-28] MEDS: Polyethylene Glycol 3350 Powder 17 GM Packet PO SCH (09:44)
[2022-09-28] MEDS: Docusate Sodium 100 MG Cap PO SCH (09:44)
[2022-09-28] MEDS ORDERED: Warfarin 5 MG Tab PO ONE (10:15)
== END 2022-09-28 10:55 | disposition home health service (06) | DRG 560 ==
LOC: KA.MS 10:25
PROVIDERS: ADMIT Nurse Practitioner Family; ATTEND Family Medicine
DX: S82.002D Unspecified fracture of left patella, subsequent encounter for closed fracture with routine healing (principal); I13.0 Hypertensive heart and chronic kidney disease with heart failure and stage 1 through stage 4 chronic kidney disease, or unspecified chronic kidney disease; I50.32 Chronic diastolic (congestive) heart failure; W19.XXXD Unspecified fall, subsequent encounter; E87.5 Hyperkalemia; E88.09 Other disorders of plasma-protein metabolism, not elsewhere classified; Z66 Do not resuscitate; I48.91 Unspecified atrial fibrillation; N18.30 Chronic kidney disease, stage 3 unspecified; D50.9 Iron deficiency anemia, unspecified; K21.9 Gastro-esophageal reflux disease without esophagitis; E11.22 Type 2 diabetes mellitus with diabetic chronic kidney disease; E78.5 Hyperlipidemia, unspecified; E53.9 Vitamin B deficiency, unspecified; M81.0 Age-related osteoporosis without current pathological fracture; F41.9 Anxiety disorder, unspecified; G47.00 Insomnia, unspecified; G25.81 Restless legs syndrome; J30.9 Allergic rhinitis, unspecified; H91.90 Unspecified hearing loss, unspecified ear; M17.12 Unilateral primary osteoarthritis, left knee; H54.7 Unspecified visual loss; E78.00 Pure hypercholesterolemia, unspecified; R13.10 Dysphagia, unspecified; G89.29 Other chronic pain; F32.A Depression, unspecified; Z86.19 Personal history of other infectious and parasitic diseases; Z79.01 Long term (current) use of anticoagulants; Z79.899 Other long term (current) drug therapy; Z88.8 Allergy status to other drugs, medicaments and biological substances; Z91.018 Allergy to other foods; Z90.49 Acquired absence of other specified parts of digestive tract; Z98.49 Cataract extraction status, unspecified eye
CPT/HCPCS: 36415; 36416; 80048; 80053; 82947; 85025; 85610; 97110-GP; 97161-GP; 97535-GO; A9270-GY

== ENCOUNTER 2023-01-28 11:44 | Emergency (ER) | payer MEDICARE, MEDICAID ==
[2023-01-28 12:31] LABS: CHLORIDE,CL 101 mmol/L (98-107); SODIUM,NA 137 mmol/L (136-145)
[2023-01-28 12:38] LABS: ESTIMATED GFR 41 mL/min (>=60)
[2023-01-28 13:25] VITALS: BP 169/77; PULSE 66
== END 2023-01-28 14:40 | disposition home or self-care (01) ==
LOC: KA.ED 11:44
DX: S82.002A Unspecified fracture of left patella, initial encounter for closed fracture (principal); I12.9 Hypertensive chronic kidney disease with stage 1 through stage 4 chronic kidney disease, or unspecified chronic kidney disease; N18.30 Chronic kidney disease, stage 3 unspecified; E78.00 Pure hypercholesterolemia, unspecified; K21.9 Gastro-esophageal reflux disease without esophagitis; Z88.8 Allergy status to other drugs, medicaments and biological substances; Z91.013 Allergy to seafood; Z91.041 Radiographic dye allergy status; Z91.018 Allergy to other foods; Z79.899 Other long term (current) drug therapy; Z79.01 Long term (current) use of anticoagulants; W00.0XXA Fall on same level due to ice and snow, initial encounter
CPT/HCPCS: 36415; 73560-LT; 80053; 85025; 85610; 99284

== ENCOUNTER 2023-01-28 17:04 | Inpatient (IN) | payer MEDICARE, MEDICAID ==
[2023-01-28] MEDS ORDERED: PROMETHAZINE 25 MG PO PRN (19:06)
[2023-01-28] MEDS: oxyCODONE 5 MG Tab PO PRN (20:01)
[2023-01-28] MEDS: BUSPIRONE 15 MG PO SCH (20:58)
[2023-01-28] MEDS: metFORMIN 500 MG Tab **OWN MED PO SCH (20:58)
[2023-01-28] MEDS: [UNRECOGNIZED DRUG - OTHER] PO SCH (20:59)
[2023-01-28] MEDS: Acetaminophen 325 MG Tab PO PRN (20:59)
[2023-01-28] MEDS: Melatonin 3 MG Tab **OWN MED PO SCH (21:00)
[2023-01-29] MEDS: Acetaminophen 325 MG Tab PO PRN ×2 (05:19→15:22)
[2023-01-29] MEDS: metFORMIN 500 MG Tab **OWN MED PO SCH ×2 (08:16→20:38)
[2023-01-29] MEDS: BUSPIRONE 15 MG PO SCH ×3 (08:16→20:37)
[2023-01-29] MEDS: [UNRECOGNIZED DRUG - OTHER] PO SCH ×2 (08:17→20:36)
[2023-01-29] MEDS ORDERED: Levofloxacin 500 MG Tab PO SCH (09:30)
[2023-01-29] MEDS ORDERED: Ofloxacin 0.3% Ophth Soln 5 ML Bottle EARLF SCH (09:30)
[2023-01-29] MEDS: CHOLECALCIFEROL PO SCH (09:55)
[2023-01-29] MEDS: DILTIAZEM HCL 240 MG PO SCH (09:55)
[2023-01-29] MEDS: HYDROCHLOROTHIAZIDE 25 MG PO SCH (09:56)
[2023-01-29] MEDS: FERREX PO SCH (09:56)
[2023-01-29] MEDS: ESCITALOPRAM 10 MG PO SCH (09:58)
[2023-01-29] MEDS: PRAVASTATIN SODIUM 40 MG PO SCH (09:58)
[2023-01-29] MEDS: Metoprolol Succinate 25 MG Tab.ER - PTOM PO SCH (09:59)
[2023-01-29] MEDS ORDERED: WARFARIN 5 MG PO SCH (10:00)
[2023-01-29] MEDS: [UNRECOGNIZED DRUG - OTHER] PO SCH ×2 (10:02→18:03)
[2023-01-29] MEDS: PHYTONADIONE 100 MCG PO SCH (10:02)
[2023-01-29] MEDS: CALCIUM CITRATE PO SCH ×2 (10:02→18:03)
[2023-01-29] MEDS: ESOMEPRAZOLE 40 MG PO SCH ×2 (10:03→18:03)
[2023-01-29] MEDS: Acetaminophen 650 MG Tab.ER PO SCH ×2 (11:47→20:24)
[2023-01-29] MEDS: OFLOXACIN 0.3% EARLF SCH (13:03)
[2023-01-29] MEDS ORDERED: WARFARIN 5 MG PO ONE (18:00)
[2023-01-29] MEDS: oxyCODONE 5 MG Tab PO PRN (20:25)
[2023-01-29] MEDS: Melatonin 3 MG Tab **OWN MED PO SCH (20:38)
[2023-01-30] MEDS: ESOMEPRAZOLE 40 MG PO SCH ×3 (05:59→17:07)
[2023-01-30] MEDS: Acetaminophen 325 MG Tab PO PRN ×2 (06:07→18:57)
[2023-01-30] MEDS: oxyCODONE 5 MG Tab PO PRN ×3 (06:09→21:59)
[2023-01-30] MEDS: CALCIUM CITRATE PO SCH ×2 (08:05→17:07)
[2023-01-30] MEDS: [UNRECOGNIZED DRUG - OTHER] PO SCH ×2 (08:05→17:07)
[2023-01-30] MEDS: BUSPIRONE 15 MG PO SCH ×3 (08:06→22:02)
[2023-01-30] MEDS: CHOLECALCIFEROL PO SCH (08:06)
[2023-01-30] MEDS: DILTIAZEM HCL 240 MG PO SCH (08:07)
[2023-01-30] MEDS: FERREX PO SCH (08:07)
[2023-01-30] MEDS: metFORMIN 500 MG Tab **OWN MED PO SCH ×2 (08:08→22:01)
[2023-01-30] MEDS: ESCITALOPRAM 10 MG PO SCH (08:08)
[2023-01-30] MEDS: HYDROCHLOROTHIAZIDE 25 MG PO SCH (08:08)
[2023-01-30] MEDS: LEVOFLOXACIN 250 MG PO SCH (08:09)
[2023-01-30] MEDS: OFLOXACIN 0.3% EARLF SCH (08:09)
[2023-01-30] MEDS: PRAVASTATIN SODIUM 40 MG PO SCH (08:09)
[2023-01-30] MEDS: Metoprolol Succinate 25 MG Tab.ER - PTOM PO SCH (08:10)
[2023-01-30] MEDS: PHYTONADIONE 100 MCG PO SCH (08:11)
[2023-01-30] MEDS: [UNRECOGNIZED DRUG - OTHER] PO SCH ×2 (08:11→22:01)
[2023-01-30] MEDS: Acetaminophen 650 MG Tab.ER PO SCH ×2 (08:14→22:00)
[2023-01-30] MEDS ORDERED: WARFARIN 5 MG PO SCH (09:00)
[2023-01-30] MEDS ORDERED: Non-Formulary Medication 1 Each PO SCH (12:30)
[2023-01-30] MEDS ORDERED: WARFARIN 5 MG PO ONE (18:00)
[2023-01-30] MEDS: Melatonin 3 MG Tab **OWN MED PO SCH (22:00)
[2023-01-31] MEDS: oxyCODONE 5 MG Tab PO PRN ×2 (03:06→09:54)
[2023-01-31] MEDS: [UNRECOGNIZED DRUG - OTHER] PO SCH ×2 (08:05→17:37)
[2023-01-31] MEDS: ESOMEPRAZOLE 40 MG PO SCH ×2 (08:05→17:37)
[2023-01-31] MEDS: BUSPIRONE 15 MG PO SCH ×3 (08:05→21:14)
[2023-01-31] MEDS: CALCIUM CITRATE PO SCH ×2 (08:05→17:37)
[2023-01-31] MEDS: CHOLECALCIFEROL PO SCH (08:06)
[2023-01-31] MEDS: DILTIAZEM HCL 240 MG PO SCH (08:06)
[2023-01-31] MEDS: FERREX PO SCH (08:07)
[2023-01-31] MEDS: HYDROCHLOROTHIAZIDE 25 MG PO SCH (08:07)
[2023-01-31] MEDS: metFORMIN 500 MG Tab **OWN MED PO SCH ×2 (08:07→21:14)
[2023-01-31] MEDS: LEVOFLOXACIN 250 MG PO SCH (08:08)
[2023-01-31] MEDS: ESCITALOPRAM 10 MG PO SCH (08:08)
[2023-01-31] MEDS: PRAVASTATIN SODIUM 40 MG PO SCH (08:09)
[2023-01-31] MEDS: PHYTONADIONE 100 MCG PO SCH (08:10)
[2023-01-31] MEDS: [UNRECOGNIZED DRUG - OTHER] PO SCH ×2 (08:10→21:12)
[2023-01-31] MEDS: Acetaminophen 650 MG Tab.ER PO SCH ×2 (08:11→21:10)
[2023-01-31] MEDS: Metoprolol Succinate 25 MG Tab.ER - PTOM PO SCH (08:12)
[2023-01-31] MEDS: OFLOXACIN 0.3% EARLF SCH (10:00)
[2023-01-31] MEDS ORDERED: Ondansetron 4 MG Tab.DIS PO PRN (13:09)
[2023-01-31] MEDS: Acetaminophen 325 MG Tab PO PRN (16:49)
[2023-01-31] MEDS: Melatonin 3 MG Tab **OWN MED PO SCH (21:11)
[2023-01-31] MEDS: Bisacodyl 5 MG Tab PO PRN (21:36)
[2023-02-01] MEDS: Acetaminophen 650 MG Tab.ER PO SCH ×4 (02:45→21:19)
[2023-02-01] MEDS: Bisacodyl 5 MG Tab PO PRN (09:10)
[2023-02-01] MEDS: BUSPIRONE 15 MG PO SCH ×3 (09:12→21:14)
[2023-02-01] MEDS: [UNRECOGNIZED DRUG - OTHER] PO SCH ×2 (09:13→21:20)
[2023-02-01] MEDS: PRAVASTATIN SODIUM 40 MG PO SCH (09:13)
[2023-02-01] MEDS: ESOMEPRAZOLE 40 MG PO SCH ×2 (09:14→17:16)
[2023-02-01] MEDS: CALCIUM CITRATE PO SCH ×2 (09:14→17:17)
[2023-02-01] MEDS: [UNRECOGNIZED DRUG - OTHER] PO SCH ×2 (09:14→17:17)
[2023-02-01] MEDS: CHOLECALCIFEROL PO SCH (09:15)
[2023-02-01] MEDS: DILTIAZEM HCL 240 MG PO SCH (09:15)
[2023-02-01] MEDS: FERREX PO SCH (09:15)
[2023-02-01] MEDS: ESCITALOPRAM 10 MG PO SCH (09:16)
[2023-02-01] MEDS: PHYTONADIONE 100 MCG PO SCH (09:16)
[2023-02-01] MEDS: Metoprolol Succinate 25 MG Tab.ER - PTOM PO SCH (09:17)
[2023-02-01] MEDS: HYDROCHLOROTHIAZIDE 25 MG PO SCH (09:20)
[2023-02-01] MEDS: metFORMIN 500 MG Tab **OWN MED PO SCH ×2 (09:27→21:15)
[2023-02-01] MEDS ORDERED: Warfarin 2 MG Tab PO ONE (18:00)
[2023-02-01] MEDS: Melatonin 3 MG Tab **OWN MED PO SCH (21:15)
[2023-02-02] MEDS: traMADol 50 MG Tab PO PRN ×2 (00:50→21:07)
[2023-02-02] MEDS: Acetaminophen 650 MG Tab.ER PO SCH ×4 (03:26→21:06)
[2023-02-02] MEDS: ESOMEPRAZOLE 40 MG PO SCH ×2 (07:14→17:31)
[2023-02-02] MEDS: FERREX PO SCH (09:10)
[2023-02-02] MEDS: metFORMIN 500 MG Tab **OWN MED PO SCH ×2 (09:10→20:49)
[2023-02-02] MEDS: [UNRECOGNIZED DRUG - OTHER] PO SCH (09:11)
[2023-02-02] MEDS: BUSPIRONE 15 MG PO SCH ×3 (09:11→20:49)
[2023-02-02] MEDS: PRAVASTATIN SODIUM 40 MG PO SCH (09:12)
[2023-02-02] MEDS: CHOLECALCIFEROL PO SCH (09:12)
[2023-02-02] MEDS: CALCIUM CITRATE PO SCH (09:13)
[2023-02-02] MEDS: PHYTONADIONE 100 MCG PO SCH (09:13)
[2023-02-02] MEDS: [UNRECOGNIZED DRUG - OTHER] PO SCH (09:13)
[2023-02-02] MEDS: ESCITALOPRAM 10 MG PO SCH (09:14)
[2023-02-02] MEDS: DILTIAZEM HCL 240 MG PO SCH (09:17)
[2023-02-02] MEDS: HYDROCHLOROTHIAZIDE 25 MG PO SCH (09:17)
[2023-02-02] MEDS: Metoprolol Succinate 25 MG Tab.ER - PTOM PO SCH (09:18)
[2023-02-02] MEDS ORDERED: Warfarin 2.5 MG Tab PO ONE (18:00)
[2023-02-03] MEDS: Acetaminophen 650 MG Tab.ER PO SCH ×4 (05:16→20:32)
[2023-02-03] MEDS: ESOMEPRAZOLE 40 MG PO SCH ×2 (06:29→17:14)
[2023-02-03] MEDS: metFORMIN 500 MG Tab **OWN MED PO SCH ×2 (08:36→20:31)
[2023-02-03] MEDS: PRAVASTATIN SODIUM 40 MG PO SCH (08:37)
[2023-02-03] MEDS: PHYTONADIONE 100 MCG PO SCH (08:37)
[2023-02-03] MEDS: BUSPIRONE 15 MG PO SCH ×3 (08:38→20:30)
[2023-02-03] MEDS: HYDROCHLOROTHIAZIDE 25 MG PO SCH (08:39)
[2023-02-03] MEDS: DILTIAZEM HCL 240 MG PO SCH (08:39)
[2023-02-03] MEDS: ESCITALOPRAM 10 MG PO SCH (08:39)
[2023-02-03] MEDS: Metoprolol Succinate 25 MG Tab.ER - PTOM PO SCH (08:40)
[2023-02-03] MEDS: traMADol 50 MG Tab PO PRN (14:46)
[2023-02-04] MEDS: Acetaminophen 650 MG Tab.ER PO SCH ×4 (02:56→20:11)
[2023-02-04] MEDS: traMADol 50 MG Tab PO PRN ×2 (02:58→20:13)
[2023-02-04] MEDS: ESOMEPRAZOLE 40 MG PO SCH ×3 (06:13→18:22)
[2023-02-04] MEDS: PRAVASTATIN SODIUM 40 MG PO SCH (09:21)
[2023-02-04] MEDS: Metoprolol Succinate 25 MG Tab.ER - PTOM PO SCH (09:22)
[2023-02-04] MEDS: BUSPIRONE 15 MG PO SCH ×3 (09:22→20:15)
[2023-02-04] MEDS: HYDROCHLOROTHIAZIDE 25 MG PO SCH (09:24)
[2023-02-04] MEDS: DILTIAZEM HCL 240 MG PO SCH (09:24)
[2023-02-04] MEDS: ESCITALOPRAM 10 MG PO SCH (09:24)
[2023-02-04] MEDS: metFORMIN 500 MG Tab **OWN MED PO SCH ×2 (09:25→20:15)
[2023-02-04] MEDS ORDERED: Acetaminophen/HYDROcodone 325-5 MG Tab PO ONE (21:37)
[2023-02-05] MEDS: Acetaminophen 650 MG Tab.ER PO SCH ×4 (02:47→21:12)
[2023-02-05] MEDS: ESOMEPRAZOLE 40 MG PO SCH ×2 (06:36→17:17)
[2023-02-05] MEDS: PRAVASTATIN SODIUM 40 MG PO SCH (09:19)
[2023-02-05] MEDS: Metoprolol Succinate 25 MG Tab.ER - PTOM PO SCH (09:19)
[2023-02-05] MEDS: ESCITALOPRAM 10 MG PO SCH (09:20)
[2023-02-05] MEDS: BUSPIRONE 15 MG PO SCH ×3 (09:20→21:13)
[2023-02-05] MEDS: HYDROCHLOROTHIAZIDE 25 MG PO SCH (09:22)
[2023-02-05] MEDS: traMADol 50 MG Tab PO PRN ×2 (09:23→17:25)
[2023-02-05] MEDS: DILTIAZEM HCL 240 MG PO SCH (09:23)
[2023-02-05] MEDS: metFORMIN 500 MG Tab **OWN MED PO SCH ×2 (09:23→21:13)
[2023-02-06] MEDS: Acetaminophen 650 MG Tab.ER PO SCH ×5 (01:38→20:43)
[2023-02-06] MEDS: traMADol 50 MG Tab PO PRN ×3 (01:38→17:04)
[2023-02-06] MEDS: ESOMEPRAZOLE 40 MG PO SCH ×2 (07:10→17:03)
[2023-02-06] MEDS: BUSPIRONE 15 MG PO SCH ×3 (08:17→20:45)
[2023-02-06] MEDS: PRAVASTATIN SODIUM 40 MG PO SCH (08:17)
[2023-02-06] MEDS: metFORMIN 500 MG Tab **OWN MED PO SCH ×2 (08:18→20:44)
[2023-02-06] MEDS: HYDROCHLOROTHIAZIDE 25 MG PO SCH (08:18)
[2023-02-06] MEDS: ESCITALOPRAM 10 MG PO SCH (08:19)
[2023-02-06] MEDS: Metoprolol Succinate 25 MG Tab.ER - PTOM PO SCH (08:21)
[2023-02-06] MEDS: DILTIAZEM HCL 240 MG PO SCH (08:22)
[2023-02-07] MEDS: Acetaminophen 650 MG Tab.ER PO SCH ×4 (02:14→20:34)
[2023-02-07] MEDS: traMADol 50 MG Tab PO PRN ×3 (02:15→19:09)
[2023-02-07] MEDS: ESOMEPRAZOLE 40 MG PO SCH ×2 (07:25→17:27)
[2023-02-07] MEDS: metFORMIN 500 MG Tab **OWN MED PO SCH ×2 (08:31→20:35)
[2023-02-07] MEDS: DILTIAZEM HCL 240 MG PO SCH (08:31)
[2023-02-07] MEDS: BUSPIRONE 15 MG PO SCH ×3 (08:32→20:35)
[2023-02-07] MEDS: HYDROCHLOROTHIAZIDE 25 MG PO SCH (08:32)
[2023-02-07] MEDS: ESCITALOPRAM 10 MG PO SCH (08:32)
[2023-02-07] MEDS: Metoprolol Succinate 25 MG Tab.ER - PTOM PO SCH (08:33)
[2023-02-07] MEDS: PRAVASTATIN SODIUM 40 MG PO SCH (08:33)
[2023-02-08] MEDS: traMADol 50 MG Tab PO PRN (02:48)
[2023-02-08] MEDS: Acetaminophen 650 MG Tab.ER PO SCH ×2 (02:51→08:28)
[2023-02-08] MEDS: ESOMEPRAZOLE 40 MG PO SCH ×2 (06:25→06:30)
[2023-02-08 07:30] LABS: ANION GAP 8.9 mmol/L (5-15)
[2023-02-08] MEDS: BUSPIRONE 15 MG PO SCH (08:24)
[2023-02-08] MEDS: metFORMIN 500 MG Tab **OWN MED PO SCH (08:25)
[2023-02-08] MEDS: DILTIAZEM HCL 240 MG PO SCH (08:25)
[2023-02-08] MEDS: ESCITALOPRAM 10 MG PO SCH (08:26)
[2023-02-08] MEDS: HYDROCHLOROTHIAZIDE 25 MG PO SCH (08:26)
[2023-02-08] MEDS: PRAVASTATIN SODIUM 40 MG PO SCH (08:26)
[2023-02-08] MEDS: Metoprolol Succinate 25 MG Tab.ER - PTOM PO SCH (08:27)
[2023-02-08] MEDS ORDERED: traMADol 50 MG Tab PO ONE (09:18)
[2023-02-08 09:29] VITALS: BP 145/70; PULSE 72
== END 2023-02-08 09:55 | disposition home or self-care (01) | DRG 560 ==
LOC: UNDOADMIN 17:04 → KA.MS 17:04
PROVIDERS: ADMIT Student in an Organized Health Care Education/Training Program; ATTEND Family Medicine
DX: S82.032D Displaced transverse fracture of left patella, subsequent encounter for closed fracture with routine healing (principal); I13.0 Hypertensive heart and chronic kidney disease with heart failure and stage 1 through stage 4 chronic kidney disease, or unspecified chronic kidney disease; I48.20 Chronic atrial fibrillation, unspecified; I50.32 Chronic diastolic (congestive) heart failure; E78.5 Hyperlipidemia, unspecified; K21.9 Gastro-esophageal reflux disease without esophagitis; N18.32 Chronic kidney disease, stage 3b; F41.9 Anxiety disorder, unspecified; E11.51 Type 2 diabetes mellitus with diabetic peripheral angiopathy without gangrene; F51.04 Psychophysiologic insomnia; G25.81 Restless legs syndrome; D50.9 Iron deficiency anemia, unspecified; E11.22 Type 2 diabetes mellitus with diabetic chronic kidney disease; E53.8 Deficiency of other specified B group vitamins; E66.3 Overweight; Z98.890 Other specified postprocedural states; Z79.899 Other long term (current) drug therapy; Z90.81 Acquired absence of spleen; Z79.01 Long term (current) use of anticoagulants; Z91.041 Radiographic dye allergy status; Z91.013 Allergy to seafood; Z88.8 Allergy status to other drugs, medicaments and biological substances; Z91.018 Allergy to other foods; Z90.49 Acquired absence of other specified parts of digestive tract; Z98.49 Cataract extraction status, unspecified eye; Z98.84 Bariatric surgery status; Z90.710 Acquired absence of both cervix and uterus; Z83.3 Family history of diabetes mellitus; Z68.26 Body mass index [BMI] 26.0-26.9, adult
CPT/HCPCS: 36415; 36416; 80048; 80053; 85025; 85027; 85610; A9270-GY

== ENCOUNTER 2023-02-12 08:53 | Inpatient (IN) | payer MEDICARE, MEDICAID ==
[2023-02-12] MEDS ORDERED: Acetaminophen 325 MG Tab PO PRN ×2 (14:59→17:14)
[2023-02-12] MEDS ORDERED: oxyCODONE 5 MG Tab PO PRN (17:14)
[2023-02-12] MEDS ORDERED: Loratadine 10 MG Tab PO PRN (17:14)
[2023-02-12] MEDS ORDERED: Warfarin 5 MG Tab PO ONE (18:16)
[2023-02-12] MEDS: Iron Polysaccharides Complex 150 MG Cap PO SCH (18:40)
[2023-02-12] MEDS: oxyCODONE 5 MG Tab PO PRN (19:49)
[2023-02-12] MEDS: Melatonin 3 MG Tab PO SCH (20:48)
[2023-02-12] MEDS: Calcium Citrate/Vitamin D3 315 MG-250 Unit Tab PO SCH (20:48)
[2023-02-12] MEDS: BUSPIRONE 15 MG PO SCH (20:48)
[2023-02-12] MEDS: [UNRECOGNIZED DRUG - OTHER] PO SCH (20:48)
[2023-02-12] MEDS: Magnesium Oxide 500 MG Tab PO SCH (21:02)
[2023-02-12] MEDS: Enoxaparin 30 MG/0.3 ML Syringe SUBCUT SCH (21:03)
[2023-02-13] MEDS: Calcium Citrate/Vitamin D3 315 MG-250 Unit Tab PO SCH ×2 (08:54→18:03)
[2023-02-13] MEDS: metFORMIN 500 MG Tab PO SCH ×2 (08:54→18:03)
[2023-02-13] MEDS: BUSPIRONE 15 MG PO SCH ×3 (08:56→20:55)
[2023-02-13] MEDS: Diltiazem 240 MG Cap.ER PO SCH (08:56)
[2023-02-13] MEDS: Escitalopram 10 MG Tab PO SCH (08:57)
[2023-02-13] MEDS: Hydrochlorothiazide 25 MG Tab PO SCH (08:57)
[2023-02-13] MEDS: CHOLECALCIFEROL 50 MCG PO SCH (08:59)
[2023-02-13] MEDS: PRAVASTATIN 40 MG PO SCH (09:00)
[2023-02-13] MEDS ORDERED: Phytonadione 100 MCG Tab PO SCH (09:00)
[2023-02-13] MEDS: [UNRECOGNIZED DRUG - OTHER] PO SCH ×2 (09:00→20:55)
[2023-02-13] MEDS: Metoprolol Succinate 25 MG Tab.ER PO SCH (09:01)
[2023-02-13] MEDS: ESOMEPRAZOLE 40 MG PO SCH ×2 (09:02→18:03)
[2023-02-13] MEDS: ROPINIROLE 1 MG PO SCH (09:03)
[2023-02-13] MEDS: Enoxaparin 30 MG/0.3 ML Syringe SUBCUT SCH ×2 (09:11→20:55)
[2023-02-13] MEDS: Magnesium Oxide 500 MG Tab PO SCH ×2 (09:14→20:55)
[2023-02-13] MEDS: Polyethylene Glycol 3350 Powder 17 GM Packet PO SCH (10:13)
[2023-02-13] MEDS: Acetaminophen 500 MG Tab PO SCH ×3 (10:13→20:50)
[2023-02-13] MEDS ORDERED: Warfarin 5 MG Tab PO ONE (18:00)
[2023-02-13] MEDS: Melatonin 3 MG Tab PO SCH (20:55)
[2023-02-13] MEDS ORDERED: Simethicone 80 MG Tab.Chew PO PRN (21:34)
[2023-02-13] MEDS: oxyCODONE 5 MG Tab PO PRN (22:49)
[2023-02-14] MEDS: oxyCODONE 5 MG Tab PO PRN ×4 (03:03→20:41)
[2023-02-14] MEDS: ESOMEPRAZOLE 40 MG PO SCH ×2 (07:44→17:17)
[2023-02-14] MEDS: metFORMIN 500 MG Tab PO SCH ×2 (08:20→18:06)
[2023-02-14] MEDS: ROPINIROLE 1 MG PO SCH (08:20)
[2023-02-14] MEDS: Magnesium Oxide 500 MG Tab PO SCH ×2 (08:20→20:40)
[2023-02-14] MEDS: Hydrochlorothiazide 25 MG Tab PO SCH (08:20)
[2023-02-14] MEDS: Escitalopram 10 MG Tab PO SCH (08:21)
[2023-02-14] MEDS: Calcium Citrate/Vitamin D3 315 MG-250 Unit Tab PO SCH ×2 (08:21→18:06)
[2023-02-14] MEDS: Acetaminophen 500 MG Tab PO SCH ×3 (08:21→20:40)
[2023-02-14] MEDS: Polyethylene Glycol 3350 Powder 17 GM Packet PO SCH (08:21)
[2023-02-14] MEDS: Diltiazem 240 MG Cap.ER PO SCH (08:21)
[2023-02-14] MEDS: Metoprolol Succinate 25 MG Tab.ER PO SCH (08:21)
[2023-02-14] MEDS: BUSPIRONE 15 MG PO SCH ×3 (08:22→20:40)
[2023-02-14] MEDS: PRAVASTATIN 40 MG PO SCH (08:22)
[2023-02-14] MEDS: [UNRECOGNIZED DRUG - OTHER] PO SCH ×2 (08:23→20:42)
[2023-02-14] MEDS: CHOLECALCIFEROL 50 MCG PO SCH (08:23)
[2023-02-14] MEDS ORDERED: Warfarin 5 MG Tab PO ONE (18:00)
[2023-02-14] MEDS: Iron Polysaccharides Complex 150 MG Cap PO SCH (18:06)
[2023-02-14] MEDS: Melatonin 3 MG Tab PO SCH (20:41)
[2023-02-15] MEDS: oxyCODONE 5 MG Tab PO PRN (03:27)
[2023-02-15 07:41] LABS: ANION GAP 9.4 mmol/L (5-15)
[2023-02-15] MEDS: ROPINIROLE 1 MG PO SCH (08:29)
[2023-02-15] MEDS: Hydrochlorothiazide 25 MG Tab PO SCH (08:29)
[2023-02-15] MEDS: Diltiazem 240 MG Cap.ER PO SCH (08:29)
[2023-02-15] MEDS: metFORMIN 500 MG Tab PO SCH ×2 (08:29→18:55)
[2023-02-15] MEDS: Calcium Citrate/Vitamin D3 315 MG-250 Unit Tab PO SCH ×2 (08:29→17:39)
[2023-02-15] MEDS: ESOMEPRAZOLE 40 MG PO SCH ×2 (08:29→17:41)
[2023-02-15] MEDS: Escitalopram 10 MG Tab PO SCH (08:30)
[2023-02-15] MEDS: Acetaminophen 500 MG Tab PO SCH ×3 (08:30→20:01)
[2023-02-15] MEDS: Magnesium Oxide 500 MG Tab PO SCH ×2 (08:30→14:27)
[2023-02-15] MEDS: Polyethylene Glycol 3350 Powder 17 GM Packet PO SCH (08:31)
[2023-02-15] MEDS: PRAVASTATIN 40 MG PO SCH (08:39)
[2023-02-15] MEDS: BUSPIRONE 15 MG PO SCH ×3 (08:40→20:00)
[2023-02-15] MEDS: CHOLECALCIFEROL 50 MCG PO SCH (08:40)
[2023-02-15] MEDS: [UNRECOGNIZED DRUG - OTHER] PO SCH ×2 (08:42→20:00)
[2023-02-15] MEDS: Metoprolol Succinate 25 MG Tab.ER PO SCH (08:43)
[2023-02-15] MEDS ORDERED: Warfarin 2 MG Tab PO ONE (18:00)
[2023-02-15] MEDS: traMADol 50 MG Tab PO PRN (19:50)
[2023-02-15] MEDS: Melatonin 3 MG Tab PO SCH (20:00)
[2023-02-15] MEDS ORDERED: oxyCODONE 5 MG Tab PO ONE (22:58)
[2023-02-16] MEDS: traMADol 50 MG Tab PO PRN ×3 (01:46→22:20)
[2023-02-16] MEDS: ESOMEPRAZOLE 40 MG PO SCH ×3 (06:27→17:59)
[2023-02-16] MEDS: Escitalopram 10 MG Tab PO SCH (08:27)
[2023-02-16] MEDS: Diltiazem 240 MG Cap.ER PO SCH (08:28)
[2023-02-16] MEDS: Metoprolol Succinate 25 MG Tab.ER PO SCH (08:28)
[2023-02-16] MEDS: metFORMIN 500 MG Tab PO SCH ×2 (08:30→17:59)
[2023-02-16] MEDS: BUSPIRONE 15 MG PO SCH ×2 (08:30→14:24)
[2023-02-16] MEDS: Calcium Citrate/Vitamin D3 315 MG-250 Unit Tab PO SCH ×2 (08:31→17:59)
[2023-02-16] MEDS: Hydrochlorothiazide 25 MG Tab PO SCH (08:31)
[2023-02-16] MEDS: PRAVASTATIN 40 MG PO SCH (08:32)
[2023-02-16] MEDS: CHOLECALCIFEROL 50 MCG PO SCH (08:32)
[2023-02-16] MEDS: [UNRECOGNIZED DRUG - OTHER] PO SCH ×2 (08:33→20:09)
[2023-02-16] MEDS: ROPINIROLE 1 MG PO SCH (08:33)
[2023-02-16] MEDS: Polyethylene Glycol 3350 Powder 17 GM Packet PO SCH (08:34)
[2023-02-16] MEDS: Acetaminophen 500 MG Tab PO SCH ×3 (08:38→21:24)
[2023-02-16] MEDS: Magnesium Oxide 500 MG Tab PO SCH (08:38)
[2023-02-16] MEDS: Iron Polysaccharides Complex 150 MG Cap PO SCH (18:00)
[2023-02-16] MEDS ORDERED: Warfarin 5 MG Tab PO ONE (18:00)
[2023-02-16] MEDS: busPIRone 10 MG Tab PO SCH (20:05)
[2023-02-16] MEDS: Melatonin 3 MG Tab PO SCH (20:06)
[2023-02-16] MEDS ORDERED: oxyCODONE 5 MG Tab PO PRN (23:59)
[2023-02-17] MEDS: traMADol 50 MG Tab PO PRN (03:22)
[2023-02-17] MEDS: ESOMEPRAZOLE 40 MG PO SCH ×3 (06:28→17:47)
[2023-02-17] MEDS: rOPINIRole 1 MG Tab PO SCH (08:34)
[2023-02-17] MEDS: [UNRECOGNIZED DRUG - OTHER] PO SCH ×2 (08:34→21:11)
[2023-02-17] MEDS: Escitalopram 10 MG Tab PO SCH (08:35)
[2023-02-17] MEDS: busPIRone 10 MG Tab PO SCH ×3 (08:35→21:10)
[2023-02-17] MEDS: metFORMIN 500 MG Tab PO SCH ×2 (08:35→17:48)
[2023-02-17] MEDS: Cholecalciferol (Vitamin D3) 25 MCG Tab PO SCH (08:35)
[2023-02-17] MEDS: Magnesium Oxide 500 MG Tab PO SCH (08:35)
[2023-02-17] MEDS: Pravastatin 20 MG Tab PO SCH (08:35)
[2023-02-17] MEDS: Hydrochlorothiazide 25 MG Tab PO SCH (08:35)
[2023-02-17] MEDS: Acetaminophen 500 MG Tab PO SCH ×3 (08:36→21:09)
[2023-02-17] MEDS: Phytonadione 100 MCG Tab PO SCH (08:36)
[2023-02-17] MEDS: Metoprolol Succinate 25 MG Tab.ER PO SCH (08:36)
[2023-02-17] MEDS: Calcium Citrate/Vitamin D3 315 MG-250 Unit Tab PO SCH ×2 (08:36→17:48)
[2023-02-17] MEDS: Diltiazem 240 MG Cap.ER PO SCH (08:36)
[2023-02-17] MEDS: Polyethylene Glycol 3350 Powder 17 GM Packet PO SCH (08:41)
[2023-02-17] MEDS ORDERED: Warfarin 2 MG Tab PO ONE (18:00)
[2023-02-17] MEDS: Melatonin 3 MG Tab PO SCH (21:10)
[2023-02-18] MEDS: ESOMEPRAZOLE 40 MG PO SCH ×3 (05:58→17:52)
[2023-02-18] MEDS: Hydrochlorothiazide 25 MG Tab PO SCH (08:06)
[2023-02-18] MEDS: Pravastatin 20 MG Tab PO SCH (08:06)
[2023-02-18] MEDS: busPIRone 10 MG Tab PO SCH ×3 (08:06→20:27)
[2023-02-18] MEDS: Phytonadione 100 MCG Tab PO SCH (08:06)
[2023-02-18] MEDS: Cholecalciferol (Vitamin D3) 25 MCG Tab PO SCH (08:06)
[2023-02-18] MEDS: rOPINIRole 1 MG Tab PO SCH (08:06)
[2023-02-18] MEDS: Diltiazem 240 MG Cap.ER PO SCH (08:06)
[2023-02-18] MEDS: Metoprolol Succinate 25 MG Tab.ER PO SCH (08:07)
[2023-02-18] MEDS: metFORMIN 500 MG Tab PO SCH ×2 (08:07→18:09)
[2023-02-18] MEDS: Calcium Citrate/Vitamin D3 315 MG-250 Unit Tab PO SCH ×2 (08:07→18:09)
[2023-02-18] MEDS: Acetaminophen 500 MG Tab PO SCH ×3 (08:07→20:28)
[2023-02-18] MEDS: Magnesium Oxide 500 MG Tab PO SCH (08:07)
[2023-02-18] MEDS: Escitalopram 10 MG Tab PO SCH (08:07)
[2023-02-18] MEDS: [UNRECOGNIZED DRUG - OTHER] PO SCH ×2 (08:08→20:29)
[2023-02-18] MEDS: Polyethylene Glycol 3350 Powder 17 GM Packet PO SCH (08:18)
[2023-02-18] MEDS: traMADol 50 MG Tab PO PRN (11:56)
[2023-02-18] MEDS ORDERED: Warfarin 5 MG Tab PO ONE (18:00)
[2023-02-18] MEDS: Iron Polysaccharides Complex 150 MG Cap PO SCH (18:08)
[2023-02-18] MEDS: Melatonin 3 MG Tab PO SCH (20:28)
[2023-02-19] MEDS: traMADol 50 MG Tab PO PRN ×2 (05:05→20:48)
[2023-02-19] MEDS: ESOMEPRAZOLE 40 MG PO SCH ×3 (06:10→17:39)
[2023-02-19] MEDS: Phytonadione 100 MCG Tab PO SCH (08:17)
[2023-02-19] MEDS: Cholecalciferol (Vitamin D3) 25 MCG Tab PO SCH (08:18)
[2023-02-19] MEDS: metFORMIN 500 MG Tab PO SCH ×2 (08:19→18:12)
[2023-02-19] MEDS: Acetaminophen 500 MG Tab PO SCH ×3 (08:19→20:48)
[2023-02-19] MEDS: Magnesium Oxide 500 MG Tab PO SCH (08:19)
[2023-02-19] MEDS: Polyethylene Glycol 3350 Powder 17 GM Packet PO SCH (08:21)
[2023-02-19] MEDS: Hydrochlorothiazide 25 MG Tab PO SCH (08:21)
[2023-02-19] MEDS: rOPINIRole 1 MG Tab PO SCH (08:23)
[2023-02-19] MEDS: Calcium Citrate/Vitamin D3 315 MG-250 Unit Tab PO SCH ×2 (08:24→18:12)
[2023-02-19] MEDS: Diltiazem 240 MG Cap.ER PO SCH (08:24)
[2023-02-19] MEDS: Escitalopram 10 MG Tab PO SCH (08:24)
[2023-02-19] MEDS: Pravastatin 20 MG Tab PO SCH (08:25)
[2023-02-19] MEDS: busPIRone 10 MG Tab PO SCH ×3 (08:25→20:49)
[2023-02-19] MEDS: Metoprolol Succinate 25 MG Tab.ER PO SCH (08:27)
[2023-02-19] MEDS: [UNRECOGNIZED DRUG - OTHER] PO SCH ×2 (08:28→20:50)
[2023-02-19] MEDS ORDERED: Warfarin 2.5 MG Tab PO ONE (18:00)
[2023-02-19] MEDS: Melatonin 3 MG Tab PO SCH (20:49)
[2023-02-20] MEDS: ESOMEPRAZOLE 40 MG PO SCH ×3 (05:43→18:08)
[2023-02-20] MEDS: traMADol 50 MG Tab PO PRN (07:15)
[2023-02-20] MEDS: Acetaminophen 500 MG Tab PO SCH ×3 (08:17→20:45)
[2023-02-20] MEDS: Phytonadione 100 MCG Tab PO SCH (08:18)
[2023-02-20] MEDS: Pravastatin 20 MG Tab PO SCH (08:19)
[2023-02-20] MEDS: rOPINIRole 1 MG Tab PO SCH (08:19)
[2023-02-20] MEDS: [UNRECOGNIZED DRUG - OTHER] PO SCH ×2 (08:20→20:45)
[2023-02-20] MEDS: metFORMIN 500 MG Tab PO SCH ×2 (08:20→17:58)
[2023-02-20] MEDS: Polyethylene Glycol 3350 Powder 17 GM Packet PO SCH (08:21)
[2023-02-20] MEDS: Escitalopram 10 MG Tab PO SCH (08:21)
[2023-02-20] MEDS: Magnesium Oxide 500 MG Tab PO SCH (08:22)
[2023-02-20] MEDS: busPIRone 10 MG Tab PO SCH ×3 (08:23→20:45)
[2023-02-20] MEDS: Calcium Citrate/Vitamin D3 315 MG-250 Unit Tab PO SCH ×2 (08:25→17:59)
[2023-02-20] MEDS: Cholecalciferol (Vitamin D3) 25 MCG Tab PO SCH (08:26)
[2023-02-20] MEDS: Hydrochlorothiazide 25 MG Tab PO SCH (08:34)
[2023-02-20] MEDS: Diltiazem 240 MG Cap.ER PO SCH (08:34)
[2023-02-20] MEDS: Metoprolol Succinate 25 MG Tab.ER PO SCH (08:35)
[2023-02-20] MEDS: Iron Polysaccharides Complex 150 MG Cap PO SCH (17:59)
[2023-02-20] MEDS ORDERED: Warfarin 5 MG Tab PO ONE (18:00)
[2023-02-20] MEDS: Melatonin 3 MG Tab PO SCH (20:45)
[2023-02-21] MEDS: Polyethylene Glycol 3350 Powder 17 GM Packet PO SCH (08:24)
[2023-02-21] MEDS: Hydrochlorothiazide 25 MG Tab PO SCH (08:25)
[2023-02-21] MEDS: Pravastatin 20 MG Tab PO SCH (08:25)
[2023-02-21] MEDS: rOPINIRole 1 MG Tab PO SCH (08:26)
[2023-02-21] MEDS: Calcium Citrate/Vitamin D3 315 MG-250 Unit Tab PO SCH ×2 (08:26→17:55)
[2023-02-21] MEDS: Phytonadione 100 MCG Tab PO SCH (08:26)
[2023-02-21] MEDS: busPIRone 10 MG Tab PO SCH ×3 (08:26→20:12)
[2023-02-21] MEDS: Magnesium Oxide 500 MG Tab PO SCH (08:27)
[2023-02-21] MEDS: Acetaminophen 500 MG Tab PO SCH ×3 (08:27→20:12)
[2023-02-21] MEDS: metFORMIN 500 MG Tab PO SCH ×2 (08:27→17:55)
[2023-02-21] MEDS: Escitalopram 10 MG Tab PO SCH (08:28)
[2023-02-21] MEDS: ESOMEPRAZOLE 40 MG PO SCH ×2 (08:28→18:01)
[2023-02-21] MEDS: Cholecalciferol (Vitamin D3) 25 MCG Tab PO SCH (08:30)
[2023-02-21] MEDS: Metoprolol Succinate 25 MG Tab.ER PO SCH (08:31)
[2023-02-21] MEDS: Diltiazem 240 MG Cap.ER PO SCH (08:31)
[2023-02-21] MEDS: [UNRECOGNIZED DRUG - OTHER] PO SCH ×2 (08:33→20:13)
[2023-02-21] MEDS: traMADol 50 MG Tab PO PRN ×2 (15:53→22:05)
[2023-02-21] MEDS ORDERED: Warfarin 5 MG Tab PO ONE (18:00)
[2023-02-21] MEDS: Melatonin 3 MG Tab PO SCH (20:12)
[2023-02-22] MEDS: traMADol 50 MG Tab PO PRN (04:36)
[2023-02-22] MEDS: ESOMEPRAZOLE 40 MG PO SCH ×3 (07:29→17:19)
[2023-02-22] MEDS: rOPINIRole 1 MG Tab PO SCH (08:07)
[2023-02-22] MEDS: Calcium Citrate/Vitamin D3 315 MG-250 Unit Tab PO SCH ×3 (08:07→17:55)
[2023-02-22] MEDS: Phytonadione 100 MCG Tab PO SCH (08:07)
[2023-02-22] MEDS: Pravastatin 20 MG Tab PO SCH (08:07)
[2023-02-22] MEDS: Polyethylene Glycol 3350 Powder 17 GM Packet PO SCH (08:07)
[2023-02-22] MEDS: Escitalopram 10 MG Tab PO SCH (08:08)
[2023-02-22] MEDS: metFORMIN 500 MG Tab PO SCH ×2 (08:08→17:20)
[2023-02-22] MEDS: Hydrochlorothiazide 25 MG Tab PO SCH (08:08)
[2023-02-22] MEDS: busPIRone 10 MG Tab PO SCH ×3 (08:09→20:39)
[2023-02-22] MEDS: Magnesium Oxide 500 MG Tab PO SCH (08:09)
[2023-02-22] MEDS: Diltiazem 240 MG Cap.ER PO SCH (08:09)
[2023-02-22] MEDS: Acetaminophen 500 MG Tab PO SCH ×3 (08:10→20:39)
[2023-02-22] MEDS: [UNRECOGNIZED DRUG - OTHER] PO SCH ×3 (08:10→20:39)
[2023-02-22] MEDS: Cholecalciferol (Vitamin D3) 25 MCG Tab PO SCH (08:15)
[2023-02-22] MEDS: Metoprolol Succinate 25 MG Tab.ER PO SCH (08:16)
[2023-02-22] MEDS ORDERED: Warfarin 2.5 MG Tab PO ONE (18:00)
[2023-02-22] MEDS: Iron Polysaccharides Complex 150 MG Cap PO SCH (18:07)
[2023-02-22] MEDS: Melatonin 3 MG Tab PO SCH (20:39)
[2023-02-23] MEDS: ESOMEPRAZOLE 40 MG PO SCH ×3 (06:07→18:00)
[2023-02-23] MEDS: traMADol 50 MG Tab PO PRN (06:08)
[2023-02-23] MEDS: metFORMIN 500 MG Tab PO SCH ×2 (08:49→17:59)
[2023-02-23] MEDS: rOPINIRole 1 MG Tab PO SCH (08:49)
[2023-02-23] MEDS: Hydrochlorothiazide 25 MG Tab PO SCH (08:49)
[2023-02-23] MEDS: Metoprolol Succinate 25 MG Tab.ER PO SCH (08:50)
[2023-02-23] MEDS: Escitalopram 10 MG Tab PO SCH (08:50)
[2023-02-23] MEDS: busPIRone 10 MG Tab PO SCH ×4 (08:50→20:42)
[2023-02-23] MEDS: Phytonadione 100 MCG Tab PO SCH (08:50)
[2023-02-23] MEDS: Calcium Citrate/Vitamin D3 315 MG-250 Unit Tab PO SCH ×2 (08:50→17:59)
[2023-02-23] MEDS: Acetaminophen 500 MG Tab PO SCH ×4 (08:51→20:44)
[2023-02-23] MEDS: Magnesium Oxide 500 MG Tab PO SCH (08:52)
[2023-02-23] MEDS: Diltiazem 240 MG Cap.ER PO SCH (08:52)
[2023-02-23] MEDS: Cholecalciferol (Vitamin D3) 25 MCG Tab PO SCH (08:52)
[2023-02-23] MEDS: Pravastatin 20 MG Tab PO SCH (08:53)
[2023-02-23] MEDS: Polyethylene Glycol 3350 Powder 17 GM Packet PO SCH (08:53)
[2023-02-23] MEDS: [UNRECOGNIZED DRUG - OTHER] PO SCH ×2 (08:54→20:45)
[2023-02-23] MEDS ORDERED: Warfarin 5 MG Tab PO ONE (18:00)
[2023-02-23] MEDS: Melatonin 3 MG Tab PO SCH (20:44)
[2023-02-24] MEDS: ESOMEPRAZOLE 40 MG PO SCH (06:34)
[2023-02-24] MEDS: Polyethylene Glycol 3350 Powder 17 GM Packet PO SCH (08:12)
[2023-02-24] MEDS: busPIRone 10 MG Tab PO SCH (08:13)
[2023-02-24] MEDS: Calcium Citrate/Vitamin D3 315 MG-250 Unit Tab PO SCH (08:13)
[2023-02-24] MEDS: Cholecalciferol (Vitamin D3) 25 MCG Tab PO SCH (08:13)
[2023-02-24] MEDS: metFORMIN 500 MG Tab PO SCH (08:13)
[2023-02-24] MEDS: Phytonadione 100 MCG Tab PO SCH (08:13)
[2023-02-24] MEDS: Magnesium Oxide 500 MG Tab PO SCH (08:14)
[2023-02-24] MEDS: Acetaminophen 500 MG Tab PO SCH (08:14)
[2023-02-24] MEDS: rOPINIRole 1 MG Tab PO SCH (08:14)
[2023-02-24] MEDS: Hydrochlorothiazide 25 MG Tab PO SCH (08:14)
[2023-02-24] MEDS: Metoprolol Succinate 25 MG Tab.ER PO SCH (08:14)
[2023-02-24] MEDS: Escitalopram 10 MG Tab PO SCH (08:14)
[2023-02-24] MEDS: Pravastatin 20 MG Tab PO SCH (08:15)
[2023-02-24] MEDS: [UNRECOGNIZED DRUG - OTHER] PO SCH (08:16)
[2023-02-24] MEDS: Diltiazem 240 MG Cap.ER PO SCH (08:16)
[2023-02-24 08:20] VITALS: BP 169/82; PULSE 79
[2023-02-24] MEDS ORDERED: Warfarin 2.5 MG Tab PO ONE (18:00)
== END 2023-02-24 12:07 | disposition home health service (06) | DRG 948 ==
LOC: KA.MS 13:00
PROVIDERS: ADMIT Family Medicine; ATTEND Family Medicine
DX: R53.81 Other malaise (principal); S82.002A Unspecified fracture of left patella, initial encounter for closed fracture; I13.0 Hypertensive heart and chronic kidney disease with heart failure and stage 1 through stage 4 chronic kidney disease, or unspecified chronic kidney disease; I50.32 Chronic diastolic (congestive) heart failure; I48.91 Unspecified atrial fibrillation; H91.90 Unspecified hearing loss, unspecified ear; E78.00 Pure hypercholesterolemia, unspecified; K21.9 Gastro-esophageal reflux disease without esophagitis; G89.29 Other chronic pain; E11.51 Type 2 diabetes mellitus with diabetic peripheral angiopathy without gangrene; K59.09 Other constipation; Z66 Do not resuscitate; G47.00 Insomnia, unspecified; F41.1 Generalized anxiety disorder; D75.839 Thrombocytosis, unspecified; M81.0 Age-related osteoporosis without current pathological fracture; E78.5 Hyperlipidemia, unspecified; N18.32 Chronic kidney disease, stage 3b; E11.22 Type 2 diabetes mellitus with diabetic chronic kidney disease; I34.0 Nonrheumatic mitral (valve) insufficiency; F32.A Depression, unspecified; M54.9 Dorsalgia, unspecified; E53.8 Deficiency of other specified B group vitamins; D50.9 Iron deficiency anemia, unspecified; G25.81 Restless legs syndrome; Z90.710 Acquired absence of both cervix and uterus; Z98.890 Other specified postprocedural states; Z91.041 Radiographic dye allergy status; Z98.84 Bariatric surgery status; Z91.013 Allergy to seafood; Z88.8 Allergy status to other drugs, medicaments and biological substances; Z91.018 Allergy to other foods; Z79.01 Long term (current) use of anticoagulants; Z79.84 Long term (current) use of oral hypoglycemic drugs; Z79.899 Other long term (current) drug therapy; Z98.49 Cataract extraction status, unspecified eye; Z90.81 Acquired absence of spleen
CPT/HCPCS: 36415; 36416; 80048; 81001; 83735; 85018; 85025; 85610; 97110-GP; 97535-GO; A9270-GY; J1650

== ENCOUNTER 2023-09-02 02:38 | Inpatient (IN) | payer MEDICARE, MEDICAID ==
[2023-09-02] MEDS ORDERED: Ondansetron 4 MG/2 ML SDV IVPUSH ONE (03:52)
[2023-09-02] MEDS ORDERED: Morphine 2 MG/ML SYRINGE IVPUSH ONE ×2 (03:52→06:01)
[2023-09-02 05:19] LABS: BASOPHILS ABSOLUTE AUTO 0.06 10^3/uL (0.00-0.10); BASOPHILS PERCENT AUTO 0.5 % (0.0-1.0); EOSINOPHILS ABSOLUTE AUTO 0.06 10^3/uL (0.10-0.30); EOSINOPHILS PERCENT AUTO 0.5 % (1.0-3.0); HEMATOCRIT 33.3 % (37.0-47.0); HEMOGLOBIN 10.5 g/dL (12.0-16.0); IMMATURE GRAN ABSOLUTE AUTO 0.05 10^3/uL (0.00-0.50); IMMATURE GRAN PERCENT AUTO 0.4 % (0.0-5.0); LYMPHOCYTES ABSOLUTE AUTO 1.39 10^3/uL (1.00-4.00); LYMPHOCYTES PERCENT AUTO 10.8 % (20.0-40.0); MEAN CORPUSCULAR HEMOGLOBIN 26.7 pg (27.0-31.0); MEAN CORPUSCULAR HGB CONC 31.5 g/dL (32.0-36.0); MEAN CORPUSCULAR VOLUME 84.7 fL (82.0-92.0); MEAN PLATELET VOLUME 10.3 fL (7.4-10.4); MONOCYTES ABSOLUTE AUTO 1.14 10^3/uL (0.10-0.80); MONOCYTES PERCENT AUTO 8.8 % (2.0-8.0); NEUTROPHILS ABSOLUTE AUTO 10.19 10^3/uL (2.50-7.00); PLATELET COUNT,PLT 409 10^3/uL (150-400); RED BLOOD CELL COUNT 3.93 10^6/uL (3.80-5.50); RED CELL DISTRIBUTION WIDTH 18.1 % (11.5-14.5); WHITE BLOOD CELL COUNT,WBC 12.89 10^3/uL (5.00-10.00)
[2023-09-02] MEDS ORDERED: Naloxone 0.4 MG/ML SDV IVPUSH PRN (06:02)
[2023-09-02] MEDS ORDERED: Polyethylene Glycol 3350 Powder 17 GM Packet PO PRN (06:11)
[2023-09-02] MEDS ORDERED: Ondansetron 4 MG/2 ML SDV IV PRN (06:11)
[2023-09-02] MEDS ORDERED: Loratadine 10 MG Tab PO PRN (06:18)
[2023-09-02] MEDS ORDERED: traMADol 50 MG Tab PO PRN (06:18)
[2023-09-02] MEDS ORDERED: 50% Dextrose in Water 50 ML Syringe IVPUSH PRN (07:05)
[2023-09-02] MEDS ORDERED: Glucagon,Human Recombinant 1 MG Vial IM PRN (07:05)
[2023-09-02 07:11] LABS: ALBUMIN 2.75 g/dL (3.40-5.00); ANION GAP 17.3 mmol/L (5-15); BILIRUBIN TOTAL 0.3 mg/dL (0.2-1.0); CALCIUM 9.5 mg/dL (8.7-10.3); CARBON DIOXIDE,CO2 23.7 mmol/L (21.0-32.0); CREATININE 1.17 mg/dL (0.51-1.17); EST CRCL DRUG DOSING (CG) 35.9 mL/min; PROTEIN TOTAL,TP 6.2 g/dL (6.4-8.2)
[2023-09-02] MEDS ORDERED: Non-Formulary Medication 1 Each (Esomeprazole [Nexium] 40 MG Cap) PO SCH (07:30)
[2023-09-02] MEDS ORDERED: [UNRECOGNIZED DRUG - OTHER] PO SCH (08:00)
[2023-09-02] MEDS ORDERED: CALCIUM CITRATE PO SCH (08:00)
[2023-09-02] MEDS ORDERED: VITAMIN D2 PO SCH (08:00)
[2023-09-02] MEDS: Insulin Lispro 100 Unit/ML 3 ML KwikPen SUBCUT SCH ×3 (08:02→17:57)
[2023-09-02] MEDS: Diltiazem 240 MG Cap.ER PO SCH (08:44)
[2023-09-02] MEDS: Multivitamins with Minerals/Iron/Folic Acid/Lycopene Tab PO SCH ×2 (08:44→21:55)
[2023-09-02] MEDS: Calcium Citrate/Vitamin D3 315 MG-250 Unit Tab PO SCH ×2 (08:45→17:35)
[2023-09-02] MEDS: Metoprolol Succinate 25 MG Tab.ER PO SCH (08:45)
[2023-09-02] MEDS: Pravastatin 20 MG Tab PO SCH (08:45)
[2023-09-02] MEDS: Furosemide 40 MG Tab PO SCH (08:46)
[2023-09-02] MEDS: Escitalopram 10 MG Tab PO SCH (08:46)
[2023-09-02] MEDS: Pantoprazole 40 MG Tab.CR PO SCH ×2 (08:46→17:35)
[2023-09-02] MEDS: Cholecalciferol (Vitamin D3) 25 MCG Tab PO SCH (08:46)
[2023-09-02] MEDS: rOPINIRole 1 MG Tab PO SCH (08:46)
[2023-09-02] MEDS: busPIRone 10 MG Tab PO SCH ×3 (08:46→21:56)
[2023-09-02] MEDS ORDERED: Phytonadione 100 MCG Tab PO SCH (09:00)
[2023-09-02] MEDS ORDERED: Potassium Chloride 20 MEQ Tab.ER PO SCH (09:00)
[2023-09-02 09:48] LABS: INR 3.3 (0.9-1.1)
[2023-09-02] MEDS ORDERED: Acetaminophen/HYDROcodone 325-10 MG Tab PO PRN (12:09)
[2023-09-02] MEDS: oxyCODONE 5 MG Tab PO PRN ×2 (12:09→17:35)
[2023-09-02] MEDS: Melatonin 3 MG Tab PO SCH (21:56)
[2023-09-03] MEDS ORDERED: Sodium Chloride 0.9% 1,000 ML IV SCH (06:15)
[2023-09-03 07:28] LABS: HEMATOCRIT 28.7 % (37.0-47.0); HEMOGLOBIN 8.8 g/dL (12.0-16.0); MEAN CORPUSCULAR HEMOGLOBIN 26.6 pg (27.0-31.0); MEAN CORPUSCULAR HGB CONC 30.7 g/dL (32.0-36.0); MEAN CORPUSCULAR VOLUME 86.7 fL (82.0-92.0); MEAN PLATELET VOLUME 9.7 fL (7.4-10.4); PLATELET COUNT,PLT 375 10^3/uL (150-400); RED BLOOD CELL COUNT 3.31 10^6/uL (3.80-5.50); RED CELL DISTRIBUTION WIDTH 18.4 % (11.5-14.5)
[2023-09-03] MEDS: Pantoprazole 40 MG Tab.CR PO SCH ×2 (07:28→17:35)
[2023-09-03 07:42] LABS: ALBUMIN 2.37 g/dL (3.40-5.00); ANION GAP 10.1 mmol/L (5-15); BILIRUBIN TOTAL 0.3 mg/dL (0.2-1.0); CALCIUM 9.1 mg/dL (8.7-10.3); CARBON DIOXIDE,CO2 30.1 mmol/L (21.0-32.0); CREATININE 1.65 mg/dL (0.51-1.17); EST CRCL DRUG DOSING (CG) 25.46 mL/min; POTASSIUM,K 5.2 mmol/L (3.5-5.1); PROTEIN TOTAL,TP 5.5 g/dL (6.4-8.2)
[2023-09-03 07:53] LABS: INR 2.1 (0.9-1.1); PROTHROMBIN TIME 20.5 SEC (9.2-11.2)
[2023-09-03] MEDS: Insulin Lispro 100 Unit/ML 3 ML KwikPen SUBCUT SCH ×3 (08:37→17:56)
[2023-09-03] MEDS: Metoprolol Succinate 25 MG Tab.ER PO SCH (08:46)
[2023-09-03] MEDS: Pravastatin 20 MG Tab PO SCH (08:46)
[2023-09-03] MEDS: Cholecalciferol (Vitamin D3) 25 MCG Tab PO SCH (08:46)
[2023-09-03] MEDS: Calcium Citrate/Vitamin D3 315 MG-250 Unit Tab PO SCH ×2 (08:47→17:35)
[2023-09-03] MEDS: busPIRone 10 MG Tab PO SCH ×3 (08:47→21:15)
[2023-09-03] MEDS: Diltiazem 240 MG Cap.ER PO SCH (08:47)
[2023-09-03] MEDS: Multivitamins with Minerals/Iron/Folic Acid/Lycopene Tab PO SCH ×2 (08:47→21:16)
[2023-09-03] MEDS: rOPINIRole 1 MG Tab PO SCH (08:47)
[2023-09-03] MEDS: Escitalopram 10 MG Tab PO SCH (08:47)
[2023-09-03] MEDS: Furosemide 40 MG Tab PO SCH (08:47)
[2023-09-03] MEDS: oxyCODONE 5 MG Tab PO PRN ×3 (08:53→17:56)
[2023-09-03] MEDS ORDERED: Warfarin 5 MG Tab PO SCH (18:00)
[2023-09-03] MEDS: Melatonin 3 MG Tab PO SCH (21:32)
[2023-09-04] MEDS: oxyCODONE 5 MG Tab PO PRN ×3 (01:22→19:03)
[2023-09-04] MEDS: Pantoprazole 40 MG Tab.CR PO SCH ×2 (07:08→17:07)
[2023-09-04 07:28] LABS: INR 1.5 (0.9-1.1)
[2023-09-04] MEDS: Insulin Lispro 100 Unit/ML 3 ML KwikPen SUBCUT SCH ×3 (08:01→17:14)
[2023-09-04] MEDS: busPIRone 10 MG Tab PO SCH ×3 (08:01→20:05)
[2023-09-04] MEDS: rOPINIRole 1 MG Tab PO SCH (08:01)
[2023-09-04] MEDS: Pravastatin 20 MG Tab PO SCH (08:01)
[2023-09-04] MEDS: Cholecalciferol (Vitamin D3) 25 MCG Tab PO SCH (08:01)
[2023-09-04] MEDS: Diltiazem 240 MG Cap.ER PO SCH (08:02)
[2023-09-04] MEDS: Calcium Citrate/Vitamin D3 315 MG-250 Unit Tab PO SCH ×2 (08:02→17:06)
[2023-09-04] MEDS: Furosemide 40 MG Tab PO SCH (08:02)
[2023-09-04] MEDS: Multivitamins with Minerals/Iron/Folic Acid/Lycopene Tab PO SCH ×2 (08:02→20:05)
[2023-09-04] MEDS: Escitalopram 10 MG Tab PO SCH (08:02)
[2023-09-04] MEDS: Metoprolol Succinate 25 MG Tab.ER PO SCH (08:03)
[2023-09-04] MEDS ORDERED: Warfarin 2 MG Tab PO SCH (18:00)
[2023-09-04] MEDS: Melatonin 3 MG Tab PO SCH (20:05)
[2023-09-04] MEDS: Nystatin Topical Powder 15 GM Bottle TOP PRN (20:28)
[2023-09-05] MEDS: Pantoprazole 40 MG Tab.CR PO SCH ×3 (06:24→18:01)
[2023-09-05] MEDS: oxyCODONE 5 MG Tab PO PRN ×3 (06:24→20:55)
[2023-09-05 07:26] LABS: INR 1.6 (0.9-1.1)
[2023-09-05] MEDS: Insulin Lispro 100 Unit/ML 3 ML KwikPen SUBCUT SCH ×3 (08:13→18:01)
[2023-09-05] MEDS: Pravastatin 20 MG Tab PO SCH (08:35)
[2023-09-05] MEDS: rOPINIRole 1 MG Tab PO SCH (08:35)
[2023-09-05] MEDS: Metoprolol Succinate 25 MG Tab.ER PO SCH (08:35)
[2023-09-05] MEDS: busPIRone 10 MG Tab PO SCH ×3 (08:35→20:54)
[2023-09-05] MEDS: Cholecalciferol (Vitamin D3) 25 MCG Tab PO SCH (08:35)
[2023-09-05] MEDS: Furosemide 40 MG Tab PO SCH (08:35)
[2023-09-05] MEDS: Calcium Citrate/Vitamin D3 315 MG-250 Unit Tab PO SCH ×2 (08:35→18:01)
[2023-09-05] MEDS: Multivitamins with Minerals/Iron/Folic Acid/Lycopene Tab PO SCH ×2 (08:36→20:54)
[2023-09-05] MEDS: Escitalopram 10 MG Tab PO SCH (08:36)
[2023-09-05] MEDS: Diltiazem 240 MG Cap.ER PO SCH (08:36)
[2023-09-05] MEDS: Bisacodyl 5 MG Tab PO PRN (11:11)
[2023-09-05] MEDS ORDERED: Warfarin 2 MG Tab PO SCH (18:00)
[2023-09-05] MEDS: Warfarin 2 MG Tab PO SCH (18:01)
[2023-09-05] MEDS: Melatonin 3 MG Tab PO SCH (20:54)
[2023-09-05] MEDS: Polyethylene Glycol 3350 Powder 17 GM Packet PO SCH (20:54)
[2023-09-05] MEDS: Nystatin Topical Powder 15 GM Bottle TOP PRN (20:55)
[2023-09-05] MEDS ORDERED: Insulin Regular, Human 100 Units/ML 10 ML Vial SUBCUT ONE (22:24)
[2023-09-05] MEDS ORDERED: Insulin Lispro 100 Unit/ML 3 ML KwikPen SUBCUT ONE (22:43)
[2023-09-06] MEDS: Pantoprazole 40 MG Tab.CR PO SCH ×3 (06:15→17:58)
[2023-09-06] MEDS: Insulin Lispro 100 Unit/ML 3 ML KwikPen SUBCUT SCH ×3 (08:14→17:59)
[2023-09-06] MEDS: Multivitamins with Minerals/Iron/Folic Acid/Lycopene Tab PO SCH ×2 (08:15→20:08)
[2023-09-06] MEDS: Escitalopram 10 MG Tab PO SCH (08:16)
[2023-09-06] MEDS: Metoprolol Succinate 25 MG Tab.ER PO SCH (08:16)
[2023-09-06] MEDS: Pravastatin 20 MG Tab PO SCH (08:16)
[2023-09-06] MEDS: Calcium Citrate/Vitamin D3 315 MG-250 Unit Tab PO SCH ×2 (08:16→17:58)
[2023-09-06] MEDS: Cholecalciferol (Vitamin D3) 25 MCG Tab PO SCH (08:16)
[2023-09-06] MEDS: rOPINIRole 1 MG Tab PO SCH (08:16)
[2023-09-06] MEDS: Furosemide 40 MG Tab PO SCH (08:17)
[2023-09-06] MEDS: Diltiazem 240 MG Cap.ER PO SCH (08:17)
[2023-09-06] MEDS: busPIRone 10 MG Tab PO SCH ×3 (08:17→20:08)
[2023-09-06] MEDS: Polyethylene Glycol 3350 Powder 17 GM Packet PO SCH ×3 (08:21→20:08)
[2023-09-06] MEDS: Bisacodyl 5 MG Tab PO PRN (08:21)
[2023-09-06] MEDS: oxyCODONE 5 MG Tab PO PRN ×2 (12:09→18:04)
[2023-09-06] MEDS: Nystatin Topical Powder 15 GM Bottle TOP PRN (16:47)
[2023-09-06] MEDS: Warfarin 2 MG Tab PO SCH (17:59)
[2023-09-06] MEDS: Acetaminophen 325 MG Tab PO PRN (20:08)
[2023-09-06] MEDS: Melatonin 3 MG Tab PO SCH (20:08)
[2023-09-07] MEDS: oxyCODONE 5 MG Tab PO PRN (03:47)
[2023-09-07 07:09] LABS: INR 2.6 (0.9-1.1)
[2023-09-07] MEDS: Insulin Lispro 100 Unit/ML 3 ML KwikPen SUBCUT SCH ×3 (08:35→17:57)
[2023-09-07] MEDS: rOPINIRole 1 MG Tab PO SCH (08:35)
[2023-09-07] MEDS: Acetaminophen 325 MG Tab PO PRN (08:35)
[2023-09-07] MEDS: Cholecalciferol (Vitamin D3) 25 MCG Tab PO SCH (08:35)
[2023-09-07] MEDS: Metoprolol Succinate 25 MG Tab.ER PO SCH (08:36)
[2023-09-07] MEDS: Furosemide 40 MG Tab PO SCH (08:36)
[2023-09-07] MEDS: Pravastatin 20 MG Tab PO SCH (08:36)
[2023-09-07] MEDS: Calcium Citrate/Vitamin D3 315 MG-250 Unit Tab PO SCH ×2 (08:36→17:57)
[2023-09-07] MEDS: Multivitamins with Minerals/Iron/Folic Acid/Lycopene Tab PO SCH ×2 (08:36→19:59)
[2023-09-07] MEDS: Pantoprazole 40 MG Tab.CR PO SCH ×2 (08:36→17:57)
[2023-09-07] MEDS: Polyethylene Glycol 3350 Powder 17 GM Packet PO SCH ×2 (08:36→20:00)
[2023-09-07] MEDS: busPIRone 10 MG Tab PO SCH ×3 (08:37→19:59)
[2023-09-07] MEDS: Diltiazem 240 MG Cap.ER PO SCH (08:37)
[2023-09-07] MEDS: Escitalopram 10 MG Tab PO SCH (08:37)
[2023-09-07] MEDS: Nystatin Topical Powder 15 GM Bottle TOP PRN (10:01)
[2023-09-07 11:33] LABS: BASOPHILS ABSOLUTE AUTO 0.04 10^3/uL (0.00-0.10); BASOPHILS PERCENT AUTO 0.4 % (0.0-1.0); EOSINOPHILS ABSOLUTE AUTO 0.06 10^3/uL (0.10-0.30); EOSINOPHILS PERCENT AUTO 0.6 % (1.0-3.0); HEMATOCRIT 26.4 % (37.0-47.0); HEMOGLOBIN 8.5 g/dL (12.0-16.0); IMMATURE GRAN ABSOLUTE AUTO 0.05 10^3/uL (0.00-0.50); IMMATURE GRAN PERCENT AUTO 0.5 % (0.0-5.0); LYMPHOCYTES ABSOLUTE AUTO 1.33 10^3/uL (1.00-4.00); LYMPHOCYTES PERCENT AUTO 12.9 % (20.0-40.0); MEAN CORPUSCULAR HEMOGLOBIN 26.9 pg (27.0-31.0); MEAN CORPUSCULAR HGB CONC 32.2 g/dL (32.0-36.0); MEAN CORPUSCULAR VOLUME 83.5 fL (82.0-92.0); MEAN PLATELET VOLUME 9.4 fL (7.4-10.4); MONOCYTES ABSOLUTE AUTO 1.29 10^3/uL (0.10-0.80); MONOCYTES PERCENT AUTO 12.5 % (2.0-8.0); NEUTROPHILS ABSOLUTE AUTO 7.51 10^3/uL (2.50-7.00); NEUTROPHILS PERCENT AUTO 73.1 % (50.0-70.0); PLATELET COUNT,PLT 519 10^3/uL (150-400); RED BLOOD CELL COUNT 3.16 10^6/uL (3.80-5.50); WHITE BLOOD CELL COUNT,WBC 10.28 10^3/uL (5.00-10.00)
[2023-09-07 11:39] LABS: ANION GAP 8.7 mmol/L (5-15); CALCIUM 8.9 mg/dL (8.7-10.3); CARBON DIOXIDE,CO2 33.2 mmol/L (21.0-32.0); CREATININE 1.54 mg/dL (0.51-1.17); EST CRCL DRUG DOSING (CG) 27.27 mL/min; MAGNESIUM 1.5 mg/dL (1.8-2.4); POTASSIUM,K 3.9 mmol/L (3.5-5.1)
[2023-09-07] MEDS: Morphine 2 MG/ML SYRINGE IVPUSH PRN ×3 (11:50→19:11)
[2023-09-07] MEDS: Magnesium Hydroxide 400 MG/5 ML Susp 30 ML Cup PO PRN (11:50)
[2023-09-07] MEDS ORDERED: Warfarin 2 MG Tab PO ONE (18:00)
[2023-09-07] MEDS: Melatonin 3 MG Tab PO SCH (19:59)
[2023-09-08] MEDS: Morphine 2 MG/ML SYRINGE IVPUSH PRN ×3 (00:43→15:46)
[2023-09-08] MEDS: Pantoprazole 40 MG Tab.CR PO SCH ×3 (06:11→17:21)
[2023-09-08] MEDS: Acetaminophen/HYDROcodone 325-5 MG Tab PO PRN ×3 (06:11→17:21)
[2023-09-08 07:11] LABS: INR 3.6 (0.9-1.1)
[2023-09-08] MEDS: Insulin Lispro 100 Unit/ML 3 ML KwikPen SUBCUT SCH ×2 (08:02→12:10)
[2023-09-08] MEDS: Magnesium Hydroxide 400 MG/5 ML Susp 30 ML Cup PO PRN (08:14)
[2023-09-08] MEDS: Polyethylene Glycol 3350 Powder 17 GM Packet PO SCH (08:14)
[2023-09-08 08:31] LABS: BASOPHILS ABSOLUTE AUTO 0.06 10^3/uL (0.00-0.10); BASOPHILS PERCENT AUTO 0.6 % (0.0-1.0); EOSINOPHILS ABSOLUTE AUTO 0.12 10^3/uL (0.10-0.30); EOSINOPHILS PERCENT AUTO 1.3 % (1.0-3.0); HEMATOCRIT 29.7 % (37.0-47.0); HEMOGLOBIN 9.3 g/dL (12.0-16.0); IMMATURE GRAN ABSOLUTE AUTO 0.05 10^3/uL (0.00-0.50); IMMATURE GRAN PERCENT AUTO 0.5 % (0.0-5.0); LYMPHOCYTES ABSOLUTE AUTO 2.03 10^3/uL (1.00-4.00); LYMPHOCYTES PERCENT AUTO 21.2 % (20.0-40.0); MEAN CORPUSCULAR HGB CONC 31.3 g/dL (32.0-36.0); MEAN CORPUSCULAR VOLUME 86.3 fL (82.0-92.0); MEAN PLATELET VOLUME 9.2 fL (7.4-10.4); MONOCYTES ABSOLUTE AUTO 1.24 10^3/uL (0.10-0.80); MONOCYTES PERCENT AUTO 12.9 % (2.0-8.0); NEUTROPHILS ABSOLUTE AUTO 6.09 10^3/uL (2.50-7.00); NEUTROPHILS PERCENT AUTO 63.5 % (50.0-70.0); PLATELET COUNT,PLT 578 10^3/uL (150-400); RED BLOOD CELL COUNT 3.44 10^6/uL (3.80-5.50); RED CELL DISTRIBUTION WIDTH 16.9 % (11.5-14.5); WHITE BLOOD CELL COUNT,WBC 9.59 10^3/uL (5.00-10.00)
[2023-09-08] MEDS ORDERED: Lactulose Soln 10 GM/15 ML 30 ML UD Cup PO ONE (08:51)
[2023-09-08 08:53] LABS: ANION GAP 6.4 mmol/L (5-15); CARBON DIOXIDE,CO2 36.2 mmol/L (21.0-32.0); CREATININE 1.38 mg/dL (0.51-1.17); EST CRCL DRUG DOSING (CG) 30.44 mL/min; MAGNESIUM 1.9 mg/dL (1.8-2.4); POTASSIUM,K 3.6 mmol/L (3.5-5.1)
[2023-09-08] MEDS: Cholecalciferol (Vitamin D3) 25 MCG Tab PO SCH (08:53)
[2023-09-08] MEDS: rOPINIRole 1 MG Tab PO SCH (08:53)
[2023-09-08] MEDS: Calcium Citrate/Vitamin D3 315 MG-250 Unit Tab PO SCH ×2 (08:53→17:21)
[2023-09-08] MEDS: Pravastatin 20 MG Tab PO SCH (08:53)
[2023-09-08] MEDS: Multivitamins with Minerals/Iron/Folic Acid/Lycopene Tab PO SCH (08:53)
[2023-09-08] MEDS: Escitalopram 10 MG Tab PO SCH (08:53)
[2023-09-08] MEDS: Diltiazem 240 MG Cap.ER PO SCH (08:53)
[2023-09-08] MEDS: Metoprolol Succinate 25 MG Tab.ER PO SCH (08:54)
[2023-09-08] MEDS: Furosemide 40 MG Tab PO SCH (08:54)
[2023-09-08] MEDS: busPIRone 10 MG Tab PO SCH ×2 (08:54→13:12)
[2023-09-08] MEDS ORDERED: Bisacodyl 10 MG Supp RECTAL PRN (08:55)
[2023-09-08 17:32] VITALS: BP 154/72; PULSE 71
== END 2023-09-08 18:00 | DRG 536 ==
LOC: KA.ED 02:38 → KA.MS 04:21
PROVIDERS: ADMIT Internal Medicine; ATTEND Internal Medicine
DX: S72.001A Fracture of unspecified part of neck of right femur, initial encounter for closed fracture (principal); I48.20 Chronic atrial fibrillation, unspecified; I13.0 Hypertensive heart and chronic kidney disease with heart failure and stage 1 through stage 4 chronic kidney disease, or unspecified chronic kidney disease; R79.1 Abnormal coagulation profile; H90.5 Unspecified sensorineural hearing loss; E11.22 Type 2 diabetes mellitus with diabetic chronic kidney disease; N18.30 Chronic kidney disease, stage 3 unspecified; I50.9 Heart failure, unspecified; E78.00 Pure hypercholesterolemia, unspecified; E11.51 Type 2 diabetes mellitus with diabetic peripheral angiopathy without gangrene; G25.81 Restless legs syndrome; F41.9 Anxiety disorder, unspecified; F32.A Depression, unspecified; K21.9 Gastro-esophageal reflux disease without esophagitis; D72.829 Elevated white blood cell count, unspecified; Z79.01 Long term (current) use of anticoagulants; Z79.84 Long term (current) use of oral hypoglycemic drugs; Z88.8 Allergy status to other drugs, medicaments and biological substances; Z91.013 Allergy to seafood; Z91.048 Other nonmedicinal substance allergy status; Z91.018 Allergy to other foods; Z79.899 Other long term (current) drug therapy; Z96.21 Cochlear implant status; Z87.81 Personal history of (healed) traumatic fracture; Z98.890 Other specified postprocedural states; Z98.49 Cataract extraction status, unspecified eye; Z90.49 Acquired absence of other specified parts of digestive tract; Z98.84 Bariatric surgery status; Z90.710 Acquired absence of both cervix and uterus; Z90.10 Acquired absence of unspecified breast and nipple; W19.XXXA Unspecified fall, initial encounter; Z86.718 Personal history of other venous thrombosis and embolism; W01.0XXA Fall on same level from slipping, tripping and stumbling without subsequent striking against object, initial encounter
CPT/HCPCS: 70450; 73502; 80053; 82550; 85025; 96374; 96375; 99284; 99285; J2270; J2405; 36415; 36416; 73560-RT; 73700-RT; 74018; 80048; 82947; 83735; 85027; 85610; 97161-GP; A9270-GY; J1815-GY; Q3014

== ENCOUNTER 2024-04-07 14:04 | Emergency (ER) | payer MEDICARE, MEDICAID ==
[2024-04-07] MEDS: Ondansetron 4 MG/2 ML SDV IVPUSH ONE (15:00)
[2024-04-07] MEDS: HYDROmorphone 1 MG/ML Syringe IVPUSH ONE (15:01)
[2024-04-07] MEDS: Acetaminophen/HYDROcodone 325-5 MG Tab PO ONE ×2 (16:21→19:23)
[2024-04-07 16:31] LABS: BASOPHILS ABSOLUTE AUTO 0.06 10^3/uL (0.00-0.10); BASOPHILS PERCENT AUTO 0.4 % (0.0-1.0); EOSINOPHILS ABSOLUTE AUTO 0.08 10^3/uL (0.10-0.30); EOSINOPHILS PERCENT AUTO 0.5 % (1.0-3.0); HEMATOCRIT 32.6 % (37.0-47.0); HEMOGLOBIN 10.6 g/dL (12.0-16.0); IMMATURE GRAN ABSOLUTE AUTO 0.02 10^3/uL (0.00-0.50); IMMATURE GRAN PERCENT AUTO 0.1 % (0.0-5.0); MEAN CORPUSCULAR HEMOGLOBIN 28.3 pg (27.0-31.0); MEAN CORPUSCULAR HGB CONC 32.5 g/dL (32.0-36.0); MEAN CORPUSCULAR VOLUME 86.9 fL (82.0-92.0); MEAN PLATELET VOLUME 9.9 fL (7.4-10.4); MONOCYTES ABSOLUTE AUTO 0.84 10^3/uL (0.10-0.80); MONOCYTES PERCENT AUTO 5.4 % (2.0-8.0); NEUTROPHILS ABSOLUTE AUTO 11.05 10^3/uL (2.50-7.00); NEUTROPHILS PERCENT AUTO 70.6 % (50.0-70.0); PLATELET COUNT,PLT 315 10^3/uL (150-400); RED BLOOD CELL COUNT 3.75 10^6/uL (3.80-5.50); WHITE BLOOD CELL COUNT,WBC 15.65 10^3/uL (5.00-10.00)
[2024-04-07 16:56] LABS: INR 2.3 (0.9-1.1); PTT,PARTIAL THROMBOPLSTIN TIME 29.6 SEC (23.3-34.9)
[2024-04-07 18:07] VITALS: BP 118/52; PULSE 76
[2024-04-07 18:07] LABS: ANION GAP 12.4 mmol/L (5-15); CALCIUM 7.7 mg/dL (8.7-10.3); CARBON DIOXIDE,CO2 27.1 mmol/L (21.0-32.0); CREATININE 1.93 mg/dL (0.51-1.17); EST CRCL DRUG DOSING (CG) 21.4 mL/min; POTASSIUM,K 3.5 mmol/L (3.5-5.1)
[2024-04-07 18:55] LABS: APPEARANCE,URINE SLIGHTLY CLOUDY (CLEAR); BILIRUBIN,URINE NEGATIVE (NEGATIVE); COLOR,URINE LIGHT YELLOW (YELLOW); GLUCOSE,URINE 500 mg/dL (NEGATIVE); KETONES,URINE NEGATIVE (NEGATIVE); LEUKOCYTE ESTERASE,URINE NEGATIVE (NEGATIVE); NITRITE,URINE NEGATIVE (NEGATIVE); OCCULT BLOOD,URINE NEGATIVE (NEGATIVE); PH,URINE 5.5 (5.0-9.0); PROTEIN,URINE NEGATIVE (NEGATIVE); UROBILINOGEN,URINE 0.2 E.U./dL (0.2-1.0)
[2024-04-07 18:58] LABS: BACTERIA,URINE MANY /HPF (NONE TO FEW); EPITHELIAL CELLS,URINE RARE /LPF; RBC,URINE 0-5 /HPF (0-5); WBC,URINE 0-5 /HPF (0-5)
== END 2024-04-07 19:38 | disposition critical access hospital (66) ==
LOC: KA.ED 14:04
DX: S70.01XA Contusion of right hip, initial encounter (principal); I13.0 Hypertensive heart and chronic kidney disease with heart failure and stage 1 through stage 4 chronic kidney disease, or unspecified chronic kidney disease; N18.9 Chronic kidney disease, unspecified; I50.9 Heart failure, unspecified; E11.22 Type 2 diabetes mellitus with diabetic chronic kidney disease; I48.91 Unspecified atrial fibrillation; E78.00 Pure hypercholesterolemia, unspecified; K21.9 Gastro-esophageal reflux disease without esophagitis; Z88.8 Allergy status to other drugs, medicaments and biological substances; Z91.041 Radiographic dye allergy status; Z91.013 Allergy to seafood; Z91.018 Allergy to other foods; Z79.899 Other long term (current) drug therapy; Z79.84 Long term (current) use of oral hypoglycemic drugs; Z79.85 Long-term (current) use of injectable non-insulin antidiabetic drugs; Z79.01 Long term (current) use of anticoagulants; Z90.49 Acquired absence of other specified parts of digestive tract; Z90.710 Acquired absence of both cervix and uterus; X50.0XXA Overexertion from strenuous movement or load, initial encounter; Y92.009 Unspecified place in unspecified non-institutional (private) residence as the place of occurrence of the external cause; Y93.89 Activity, other specified
CPT/HCPCS: 36415; 72100; 73560-RT; 73700-RT; 80048; 81001; 85025; 85610; 85730; 96374; 96375; 99284-25; A9270-GY; J1170; J2405

== ENCOUNTER 2024-04-07 20:58 | Inpatient (IN) | payer MEDICARE, MEDICAID ==
[2024-04-07] MEDS: Acetaminophen/HYDROcodone 325-5 MG Tab PO PRN (21:50)
[2024-04-07] MEDS: Bacitracin/Neomycin/Polymyxin B Oint 0.9 GM U/D Packet TOP ONE (21:53)
[2024-04-07] MEDS: Acetaminophen/HYDROcodone 325-5 MG Tab ONE (21:54)
[2024-04-07] MEDS: Bacitracin/Neomycin/Polymyxin B Oint 0.9 GM U/D Packet ONE (21:54)
[2024-04-07] MEDS ORDERED: Sodium Chloride 0.9% 10 ML Syringe FLUSH PRN (22:24)
[2024-04-07] MEDS: Sodium Chloride 0.9% 1,000 ML IV SCH (23:23)
[2024-04-08] MEDS ORDERED: Atropine/Diphenoxylate 0.025-2.5 MG Tab PO PRN (00:14)
[2024-04-08] MEDS ORDERED: 50% Dextrose in Water 50 ML Syringe IVPUSH PRN (00:20)
[2024-04-08] MEDS ORDERED: Glucagon,Human Recombinant 1 MG Vial IM PRN ×2 (00:20)
[2024-04-08] MEDS: Ferrous Sulfate 325 MG Tab PO SCH (00:46)
[2024-04-08] MEDS: Sodium Chloride 0.9% 1,000 ML IV SCH ×2 (01:32→13:52)
[2024-04-08] MEDS: traMADol 50 MG Tab PO PRN (02:46)
[2024-04-08] MEDS: Pantoprazole 40 MG Tab.CR PO SCH (07:06)
[2024-04-08] MEDS: Insulin Lispro 100 Unit/ML 3 ML KwikPen SUBCUT SCH (08:22)
[2024-04-08] MEDS: rOPINIRole 1 MG Tab PO SCH (08:26)
[2024-04-08] MEDS: busPIRone 10 MG Tab PO SCH (08:27)
[2024-04-08] MEDS: Escitalopram 10 MG Tab PO SCH (08:28)
[2024-04-08] MEDS: Diltiazem 240 MG Cap.ER PO SCH (08:28)
[2024-04-08] MEDS: Acetaminophen 500 MG Tab PO SCH (08:29)
[2024-04-08] MEDS: Metoprolol Succinate 25 MG Tab.ER PO SCH (09:00)
[2024-04-08 12:27] LABS: BASOPHILS ABSOLUTE AUTO 0.03 10^3/uL (0.00-0.10); BASOPHILS PERCENT AUTO 0.2 % (0.0-1.0); HEMATOCRIT 24.9 % (37.0-47.0); HEMOGLOBIN 8.2 g/dL (12.0-16.0); IMMATURE GRAN ABSOLUTE AUTO 0.03 10^3/uL (0.00-0.50); IMMATURE GRAN PERCENT AUTO 0.2 % (0.0-5.0); LYMPHOCYTES PERCENT AUTO 9.8 % (20.0-40.0); MEAN CORPUSCULAR HEMOGLOBIN 29.2 pg (27.0-31.0); MEAN CORPUSCULAR HGB CONC 32.9 g/dL (32.0-36.0); MEAN CORPUSCULAR VOLUME 88.6 fL (82.0-92.0); MEAN PLATELET VOLUME 10.1 fL (7.4-10.4); MONOCYTES ABSOLUTE AUTO 0.98 10^3/uL (0.10-0.80); NEUTROPHILS ABSOLUTE AUTO 13.64 10^3/uL (2.50-7.00); NEUTROPHILS PERCENT AUTO 83.8 % (50.0-70.0); PLATELET COUNT,PLT 240 10^3/uL (150-400); RED BLOOD CELL COUNT 2.81 10^6/uL (3.80-5.50); RED CELL DISTRIBUTION WIDTH 15.5 % (11.5-14.5); WHITE BLOOD CELL COUNT,WBC 16.28 10^3/uL (5.00-10.00)
[2024-04-08 12:52] LABS: ANION GAP 14.8 mmol/L (5-15); CALCIUM 6.9 mg/dL (8.7-10.3); CARBON DIOXIDE,CO2 22.7 mmol/L (21.0-32.0); CREATININE 2.06 mg/dL (0.51-1.17); EST CRCL DRUG DOSING (CG) 20.05 mL/min; MAGNESIUM 1.8 mg/dL (1.8-2.4); POTASSIUM,K 3.5 mmol/L (3.5-5.1); PROTHROMBIN TIME 20.4 SEC (9.3-12.2); TSH ULTRASENSITIVE 1.926 uIU/mL (0.340-4.820)
[2024-04-08 15:58] LABS: BASOPHILS ABSOLUTE AUTO 0.02 10^3/uL (0.00-0.10); BASOPHILS PERCENT AUTO 0.1 % (0.0-1.0); HEMATOCRIT 25.5 % (37.0-47.0); HEMOGLOBIN 8.2 g/dL (12.0-16.0); IMMATURE GRAN ABSOLUTE AUTO 0.04 10^3/uL (0.00-0.50); IMMATURE GRAN PERCENT AUTO 0.2 % (0.0-5.0); LYMPHOCYTES PERCENT AUTO 8.6 % (20.0-40.0); MEAN CORPUSCULAR HEMOGLOBIN 28.7 pg (27.0-31.0); MEAN CORPUSCULAR HGB CONC 32.2 g/dL (32.0-36.0); MEAN CORPUSCULAR VOLUME 89.2 fL (82.0-92.0); MEAN PLATELET VOLUME 10.3 fL (7.4-10.4); MONOCYTES PERCENT AUTO 6.8 % (2.0-8.0); NEUTROPHILS ABSOLUTE AUTO 13.66 10^3/uL (2.50-7.00); NEUTROPHILS PERCENT AUTO 84.3 % (50.0-70.0); PLATELET COUNT,PLT 256 10^3/uL (150-400); RED BLOOD CELL COUNT 2.86 10^6/uL (3.80-5.50); RED CELL DISTRIBUTION WIDTH 15.6 % (11.5-14.5); WHITE BLOOD CELL COUNT,WBC 16.22 10^3/uL (5.00-10.00)
[2024-04-08 16:13] LABS: ALBUMIN 1.91 g/dL (3.40-5.00); ANION GAP 15.8 mmol/L (5-15); BILIRUBIN TOTAL 0.3 mg/dL (0.2-1.0); CARBON DIOXIDE,CO2 22.4 mmol/L (21.0-32.0); CREATININE 2.11 mg/dL (0.51-1.17); EST CRCL DRUG DOSING (CG) 19.57 mL/min; POTASSIUM,K 3.2 mmol/L (3.5-5.1)
[2024-04-08 16:23] LABS: PROTHROMBIN TIME 20.7 SEC (9.3-12.2)
[2024-04-08] MEDS: cefTRIAXone 1 GM Vial IVPUSH SCH (17:23)
[2024-04-08] MEDS: Midodrine 5 MG Tab PO SCH (17:23)
[2024-04-08 17:58] LABS: APPEARANCE,URINE SLIGHTLY CLOUDY (CLEAR); BILIRUBIN,URINE NEGATIVE (NEGATIVE); COLOR,URINE YELLOW (YELLOW); GLUCOSE,URINE NEGATIVE (NEGATIVE); KETONES,URINE NEGATIVE (NEGATIVE); LEUKOCYTE ESTERASE,URINE NEGATIVE (NEGATIVE); NITRITE,URINE NEGATIVE (NEGATIVE); OCCULT BLOOD,URINE NEGATIVE (NEGATIVE); PH,URINE 5.5 (5.0-9.0); PROTEIN,URINE NEGATIVE (NEGATIVE); UROBILINOGEN,URINE 0.2 E.U./dL (0.2-1.0)
[2024-04-08 18:07] LABS: BASOPHILS ABSOLUTE AUTO 0.04 10^3/uL (0.00-0.10); BASOPHILS PERCENT AUTO 0.2 % (0.0-1.0); HEMATOCRIT 27.4 % (37.0-47.0); HEMOGLOBIN 8.6 g/dL (12.0-16.0); IMMATURE GRAN ABSOLUTE AUTO 0.08 10^3/uL (0.00-0.50); IMMATURE GRAN PERCENT AUTO 0.4 % (0.0-5.0); LYMPHOCYTES ABSOLUTE AUTO 1.82 10^3/uL (1.00-4.00); MEAN CORPUSCULAR HEMOGLOBIN 28.8 pg (27.0-31.0); MEAN CORPUSCULAR HGB CONC 31.4 g/dL (32.0-36.0); MEAN CORPUSCULAR VOLUME 91.6 fL (82.0-92.0); MONOCYTES PERCENT AUTO 6.6 % (2.0-8.0); NEUTROPHILS ABSOLUTE AUTO 15.14 10^3/uL (2.50-7.00); NEUTROPHILS PERCENT AUTO 82.8 % (50.0-70.0); PLATELET COUNT,PLT 226 10^3/uL (150-400); RED BLOOD CELL COUNT 2.99 10^6/uL (3.80-5.50); RED CELL DISTRIBUTION WIDTH 15.8 % (11.5-14.5); WHITE BLOOD CELL COUNT,WBC 18.28 10^3/uL (5.00-10.00)
[2024-04-08] MEDS: metroNIDAZOLE/Normal Saline 500 MG in Premix Bag 1 BAG IV SCH (18:28)
[2024-04-08 18:39] LABS: ANION GAP 15.4 mmol/L (5-15); CALCIUM 6.8 mg/dL (8.7-10.3); CREATININE 2.09 mg/dL (0.51-1.17); EST CRCL DRUG DOSING (CG) 19.76 mL/min; POTASSIUM,K 3.4 mmol/L (3.5-5.1)
[2024-04-09 07:17] LABS: BASOPHILS ABSOLUTE AUTO 0.04 10^3/uL (0.00-0.10); BASOPHILS PERCENT AUTO 0.3 % (0.0-1.0); EOSINOPHILS ABSOLUTE AUTO 0.03 10^3/uL (0.10-0.30); EOSINOPHILS PERCENT AUTO 0.2 % (1.0-3.0); IMMATURE GRAN ABSOLUTE AUTO 0.04 10^3/uL (0.00-0.50); IMMATURE GRAN PERCENT AUTO 0.3 % (0.0-5.0); LYMPHOCYTES ABSOLUTE AUTO 1.85 10^3/uL (1.00-4.00); LYMPHOCYTES PERCENT AUTO 14.5 % (20.0-40.0); MEAN CORPUSCULAR HEMOGLOBIN 28.6 pg (27.0-31.0); MEAN CORPUSCULAR HGB CONC 32.4 g/dL (32.0-36.0); MEAN CORPUSCULAR VOLUME 88.2 fL (82.0-92.0); MEAN PLATELET VOLUME 10.6 fL (7.4-10.4); MONOCYTES PERCENT AUTO 10.2 % (2.0-8.0); NEUTROPHILS ABSOLUTE AUTO 9.53 10^3/uL (2.50-7.00); NEUTROPHILS PERCENT AUTO 74.5 % (50.0-70.0); PLATELET COUNT,PLT 218 10^3/uL (150-400); RED BLOOD CELL COUNT 2.38 10^6/uL (3.80-5.50); RED CELL DISTRIBUTION WIDTH 15.7 % (11.5-14.5); WHITE BLOOD CELL COUNT,WBC 12.79 10^3/uL (5.00-10.00)
[2024-04-09 07:28] LABS: HEMOGLOBIN 6.8 g/dL (12.0-16.0)
[2024-04-09 07:33] LABS: ALBUMIN 1.65 g/dL (3.40-5.00); ANION GAP 11.3 mmol/L (5-15); BILIRUBIN TOTAL 0.2 mg/dL (0.2-1.0); C-REACTIVE PROTEIN 3.98 mg/dL (0.00-0.50); CALCIUM 6.7 mg/dL (8.7-10.3); CARBON DIOXIDE,CO2 24.1 mmol/L (21.0-32.0); CREATININE 1.91 mg/dL (0.51-1.17); EST CRCL DRUG DOSING (CG) 21.62 mL/min; MAGNESIUM 1.7 mg/dL (1.8-2.4); POTASSIUM,K 3.4 mmol/L (3.5-5.1); PROTEIN TOTAL,TP 4.3 g/dL (6.4-8.2)
[2024-04-09 07:46] LABS: INR 2.1 (0.9-1.1)
[2024-04-09 09:29] VITALS: BP 111/50; PULSE 66
== END 2024-04-09 10:30 | DRG 949 ==
LOC: KA.ED 20:58 → KA.MS 22:45
PROVIDERS: ADMIT Physician Assistant; ATTEND Family Medicine
DX: S01.511D Laceration without foreign body of lip, subsequent encounter (principal); S00.81XA Abrasion of other part of head, initial encounter; I13.0 Hypertensive heart and chronic kidney disease with heart failure and stage 1 through stage 4 chronic kidney disease, or unspecified chronic kidney disease; S01.81XD Laceration without foreign body of other part of head, subsequent encounter; N18.9 Chronic kidney disease, unspecified; E11.9 Type 2 diabetes mellitus without complications; S70.01XD Contusion of right hip, subsequent encounter; I50.9 Heart failure, unspecified; E78.00 Pure hypercholesterolemia, unspecified; Z91.041 Radiographic dye allergy status; E78.5 Hyperlipidemia, unspecified; F41.9 Anxiety disorder, unspecified; I48.91 Unspecified atrial fibrillation; F32.A Depression, unspecified; W18.39XA Other fall on same level, initial encounter; Y92.019 Unspecified place in single-family (private) house as the place of occurrence of the external cause; D50.9 Iron deficiency anemia, unspecified; N18.32 Chronic kidney disease, stage 3b; K21.9 Gastro-esophageal reflux disease without esophagitis; R29.6 Repeated falls; D63.1 Anemia in chronic kidney disease; E11.22 Type 2 diabetes mellitus with diabetic chronic kidney disease; E86.0 Dehydration; R79.1 Abnormal coagulation profile; Z88.8 Allergy status to other drugs, medicaments and biological substances; Z79.01 Long term (current) use of anticoagulants; Z91.013 Allergy to seafood; Z91.018 Allergy to other foods; Z79.899 Other long term (current) drug therapy; Z90.49 Acquired absence of other specified parts of digestive tract; Z90.710 Acquired absence of both cervix and uterus; Z98.890 Other specified postprocedural states; W19.XXXD Unspecified fall, subsequent encounter
CPT/HCPCS: 36415; 36416; 51702; 70450; 71045; 74176; 80048; 80053; 81003; 82550; 82947; 83605; 83735; 83880; 84443; 85025; 85610; 86140; 99223-GT; 99233-GT; 99239-GT; 99285; A6212; A9270-GY; J0696; J1815-GY; J1836; J7030; Q3014

== ENCOUNTER 2024-07-25 17:07 | Inpatient (IN) | payer MEDICARE, MEDICAID ==
[2024-07-25] MEDS ORDERED: Sodium Chloride 0.9% 10 ML Syringe FLUSH PRN (17:34)
[2024-07-25] MEDS: Sodium Chloride 0.9% 1,000 ML IV SCH (17:49)
[2024-07-25] MEDS ORDERED: Magnesium Hydroxide 400 MG/5 ML Susp 30 ML Cup PO PRN (20:14)
[2024-07-25] MEDS ORDERED: Polyethylene Glycol 3350 Powder 17 GM Packet PO PRN (20:14)
[2024-07-25] MEDS ORDERED: Ondansetron 4 MG Tab.DIS PO PRN (20:14)
[2024-07-25] MEDS ORDERED: Glucagon,Human Recombinant 1 MG Vial IM PRN (21:08)
[2024-07-25] MEDS ORDERED: 50% Dextrose in Water 50 ML Syringe IVPUSH PRN (21:08)
[2024-07-25] MEDS: cefTRIAXone 1 GM Vial IVPUSH SCH (22:40)
[2024-07-25] MEDS: rOPINIRole 1 MG Tab PO SCH (22:40)
[2024-07-25 22:49] LABS: APPEARANCE,URINE SLIGHTLY CLOUDY (CLEAR); BILIRUBIN,URINE NEGATIVE (NEGATIVE); COLOR,URINE YELLOW (YELLOW); GLUCOSE,URINE NEGATIVE (NEGATIVE); KETONES,URINE NEGATIVE (NEGATIVE); LEUKOCYTE ESTERASE,URINE NEGATIVE (NEGATIVE); NITRITE,URINE NEGATIVE (NEGATIVE); OCCULT BLOOD,URINE TRACE-INTACT (NEGATIVE); PH,URINE 5.5 (5.0-9.0); PROTEIN,URINE NEGATIVE (NEGATIVE); UROBILINOGEN,URINE 0.2 E.U./dL (0.2-1.0)
[2024-07-25 22:51] LABS: EPITHELIAL CELLS,URINE RARE /LPF; WBC,URINE 0-5 /HPF (0-5)
[2024-07-25 22:54] LABS: BACTERIA,URINE MODERATE /HPF (NONE TO FEW)
[2024-07-26] MEDS: Acetaminophen 325 MG Tab PO PRN (06:19)
[2024-07-26 07:34] LABS: BASOPHILS ABSOLUTE AUTO 0.02 10^3/uL (0.00-0.10); BASOPHILS PERCENT AUTO 0.2 % (0.0-1.0); EOSINOPHILS ABSOLUTE AUTO 0.01 10^3/uL (0.10-0.30); EOSINOPHILS PERCENT AUTO 0.1 % (1.0-3.0); HEMATOCRIT 37.4 % (37.0-47.0); HEMOGLOBIN 13.3 g/dL (12.0-16.0); IMMATURE GRAN ABSOLUTE AUTO 0.04 10^3/uL (0.00-0.50); IMMATURE GRAN PERCENT AUTO 0.3 % (0.0-5.0); LYMPHOCYTES ABSOLUTE AUTO 1.53 10^3/uL (1.00-4.00); LYMPHOCYTES PERCENT AUTO 11.8 % (20.0-40.0); MEAN CORPUSCULAR HEMOGLOBIN 30.2 pg (27.0-31.0); MEAN CORPUSCULAR HGB CONC 35.6 g/dL (32.0-36.0); MEAN CORPUSCULAR VOLUME 84.8 fL (82.0-92.0); MEAN PLATELET VOLUME 9.7 fL (7.4-10.4); MONOCYTES ABSOLUTE AUTO 0.52 10^3/uL (0.10-0.80); NEUTROPHILS ABSOLUTE AUTO 10.84 10^3/uL (2.50-7.00); NEUTROPHILS PERCENT AUTO 83.6 % (50.0-70.0); PLATELET COUNT,PLT 236 10^3/uL (150-400); RED BLOOD CELL COUNT 4.41 10^6/uL (3.80-5.50); RED CELL DISTRIBUTION WIDTH 20.9 % (11.5-14.5); WHITE BLOOD CELL COUNT,WBC 12.96 10^3/uL (5.00-10.00)
[2024-07-26] MEDS: traMADol 50 MG Tab PO ONE (07:42)
[2024-07-26 07:46] LABS: HEMOGLOBIN A1C 7.3 % (4.3-5.7)
[2024-07-26] MEDS: Insulin Lispro 100 Unit/ML 3 ML KwikPen SUBCUT SCH (07:52)
[2024-07-26 07:54] LABS: MAGNESIUM 1.7 mg/dL (1.8-2.4)
[2024-07-26 07:56] LABS: ALBUMIN 1.3 g/dL (3.40-5.00); ANION GAP 13.1 mmol/L (5-15); BILIRUBIN TOTAL 1.3 mg/dL (0.2-1.0); CALCIUM 7.6 mg/dL (8.7-10.3); CARBON DIOXIDE,CO2 24.8 mmol/L (21.0-32.0); CREATININE 2.63 mg/dL (0.51-1.17); EST CRCL DRUG DOSING (CG) 15.7 mL/min; POTASSIUM,K 3.9 mmol/L (3.5-5.1); PROTEIN TOTAL,TP 4.3 g/dL (6.4-8.2)
[2024-07-26 08:06] LABS: C-REACTIVE PROTEIN 1.13 mg/dL (0.00-0.50)
[2024-07-26] MEDS: Aspirin 81 MG Tab.EC PO SCH (08:10)
[2024-07-26] MEDS: Diltiazem 240 MG Cap.ER PO SCH (08:11)
[2024-07-26] MEDS: Magnesium Oxide 500 MG Tab PO ONE (09:34)
[2024-07-26] MEDS: Potassium Chloride 10 MEQ Tab.ER PO ONE (09:34)
[2024-07-26] MEDS: Midodrine 5 MG Tab PO SCH (12:28)
[2024-07-26 16:32] LABS: ANION GAP 13.3 mmol/L (5-15); CARBON DIOXIDE,CO2 25.1 mmol/L (21.0-32.0); CREATININE 2.55 mg/dL (0.51-1.17); EST CRCL DRUG DOSING (CG) 16.2 mL/min; POTASSIUM,K 4.4 mmol/L (3.5-5.1)
[2024-07-26] MEDS: metroNIDAZOLE/Normal Saline 500 MG in Premix Bag 1 BAG IV SCH (18:37)
[2024-07-26] MEDS: Pravastatin 20 MG Tab PO SCH (20:02)
[2024-07-27 07:45] LABS: BASOPHILS ABSOLUTE AUTO 0.01 10^3/uL (0.00-0.10); BASOPHILS PERCENT AUTO 0.1 % (0.0-1.0); EOSINOPHILS ABSOLUTE AUTO 0.01 10^3/uL (0.10-0.30); EOSINOPHILS PERCENT AUTO 0.1 % (1.0-3.0); HEMATOCRIT 37.6 % (37.0-47.0); HEMOGLOBIN 12.8 g/dL (12.0-16.0); IMMATURE GRAN ABSOLUTE AUTO 0.04 10^3/uL (0.00-0.50); IMMATURE GRAN PERCENT AUTO 0.3 % (0.0-5.0); LYMPHOCYTES ABSOLUTE AUTO 1.39 10^3/uL (1.00-4.00); LYMPHOCYTES PERCENT AUTO 11.1 % (20.0-40.0); MEAN CORPUSCULAR HEMOGLOBIN 29.6 pg (27.0-31.0); MEAN PLATELET VOLUME 9.9 fL (7.4-10.4); MONOCYTES ABSOLUTE AUTO 0.58 10^3/uL (0.10-0.80); MONOCYTES PERCENT AUTO 4.6 % (2.0-8.0); NEUTROPHILS ABSOLUTE AUTO 10.52 10^3/uL (2.50-7.00); NEUTROPHILS PERCENT AUTO 83.8 % (50.0-70.0); PLATELET COUNT,PLT 205 10^3/uL (150-400); RED BLOOD CELL COUNT 4.32 10^6/uL (3.80-5.50); RED CELL DISTRIBUTION WIDTH 21.6 % (11.5-14.5); WHITE BLOOD CELL COUNT,WBC 12.55 10^3/uL (5.00-10.00)
[2024-07-27 08:05] LABS: ANION GAP 11.5 mmol/L (5-15); CARBON DIOXIDE,CO2 25.7 mmol/L (21.0-32.0); CREATININE 2.37 mg/dL (0.51-1.17); EST CRCL DRUG DOSING (CG) 17.43 mL/min; MAGNESIUM 1.6 mg/dL (1.8-2.4); POTASSIUM,K 4.2 mmol/L (3.5-5.1)
[2024-07-27] MEDS: metroNIDAZOLE 500 MG Tab PO SCH (08:08)
[2024-07-27] MEDS: Cephalexin 250 MG Cap PO SCH (08:08)
[2024-07-27] MEDS ORDERED: traMADol 50 MG Tab PO PRN (10:27)
[2024-07-27] MEDS: Magnesium Oxide 500 MG Tab PO ONE (11:36)
[2024-07-27] MEDS: Amoxicillin/Clavulanate K 500-125 MG Tab PO SCH (11:36)
[2024-07-27] MEDS: Melatonin 3 MG Tab PO PRN (21:08)
[2024-07-28 07:24] LABS: BASOPHILS ABSOLUTE AUTO 0.01 10^3/uL (0.00-0.10); BASOPHILS PERCENT AUTO 0.1 % (0.0-1.0); EOSINOPHILS ABSOLUTE AUTO 0.02 10^3/uL (0.10-0.30); EOSINOPHILS PERCENT AUTO 0.2 % (1.0-3.0); HEMATOCRIT 36.5 % (37.0-47.0); HEMOGLOBIN 12.9 g/dL (12.0-16.0); IMMATURE GRAN ABSOLUTE AUTO 0.04 10^3/uL (0.00-0.50); IMMATURE GRAN PERCENT AUTO 0.3 % (0.0-5.0); LYMPHOCYTES ABSOLUTE AUTO 1.22 10^3/uL (1.00-4.00); LYMPHOCYTES PERCENT AUTO 10.3 % (20.0-40.0); MEAN CORPUSCULAR HEMOGLOBIN 30.4 pg (27.0-31.0); MEAN CORPUSCULAR HGB CONC 35.3 g/dL (32.0-36.0); MEAN CORPUSCULAR VOLUME 85.9 fL (82.0-92.0); MEAN PLATELET VOLUME 9.8 fL (7.4-10.4); MONOCYTES ABSOLUTE AUTO 0.55 10^3/uL (0.10-0.80); MONOCYTES PERCENT AUTO 4.6 % (2.0-8.0); NEUTROPHILS ABSOLUTE AUTO 10.05 10^3/uL (2.50-7.00); NEUTROPHILS PERCENT AUTO 84.5 % (50.0-70.0); PLATELET COUNT,PLT 190 10^3/uL (150-400); RED BLOOD CELL COUNT 4.25 10^6/uL (3.80-5.50); RED CELL DISTRIBUTION WIDTH 21.9 % (11.5-14.5); WHITE BLOOD CELL COUNT,WBC 11.89 10^3/uL (5.00-10.00)
[2024-07-28 07:38] LABS: ANION GAP 9.9 mmol/L (5-15); CARBON DIOXIDE,CO2 26.3 mmol/L (21.0-32.0); CREATININE 2.06 mg/dL (0.51-1.17); EST CRCL DRUG DOSING (CG) 20.05 mL/min; MAGNESIUM 1.8 mg/dL (1.8-2.4); POTASSIUM,K 4.2 mmol/L (3.5-5.1)
[2024-07-28 13:07] VITALS: BP 107/52; PULSE 87
== END 2024-07-28 13:15 | DRG 683 ==
LOC: KA.ED 17:07 → KA.MS 19:22
PROVIDERS: ADMIT Hospitalist; ATTEND Hospitalist
DX: R53.1 Weakness (principal); N17.9 Acute kidney failure, unspecified; E87.8 Other disorders of electrolyte and fluid balance, not elsewhere classified; E86.0 Dehydration; E87.1 Hypo-osmolality and hyponatremia; N39.0 Urinary tract infection, site not specified; I13.0 Hypertensive heart and chronic kidney disease with heart failure and stage 1 through stage 4 chronic kidney disease, or unspecified chronic kidney disease; N18.4 Chronic kidney disease, stage 4 (severe); I48.91 Unspecified atrial fibrillation; N18.30 Chronic kidney disease, stage 3 unspecified; K52.9 Noninfective gastroenteritis and colitis, unspecified; I50.9 Heart failure, unspecified; Z66 Do not resuscitate; Z79.899 Other long term (current) drug therapy; Z79.82 Long term (current) use of aspirin; Z79.84 Long term (current) use of oral hypoglycemic drugs; D50.9 Iron deficiency anemia, unspecified; E78.00 Pure hypercholesterolemia, unspecified; Z91.048 Other nonmedicinal substance allergy status; Z91.018 Allergy to other foods; Z91.013 Allergy to seafood; K21.9 Gastro-esophageal reflux disease without esophagitis; F41.9 Anxiety disorder, unspecified; F32.A Depression, unspecified; E11.22 Type 2 diabetes mellitus with diabetic chronic kidney disease; Z79.4 Long term (current) use of insulin; Z90.49 Acquired absence of other specified parts of digestive tract; Z98.84 Bariatric surgery status; Z98.42 Cataract extraction status, left eye; Z79.01 Long term (current) use of anticoagulants; Z88.8 Allergy status to other drugs, medicaments and biological substances; Z86.718 Personal history of other venous thrombosis and embolism; Z98.41 Cataract extraction status, right eye; Z90.710 Acquired absence of both cervix and uterus; Z87.891 Personal history of nicotine dependence
CPT/HCPCS: 36415; 71045; 80048; 80053; 81001; 82947; 83036; 83605; 83735; 83880; 84484; 85025; 86140; 87324; 87449; 93005; 93010; 99284; A6212; A9270-GY; J0696; J1836; J7030; Q3014